=== PATIENT | female | born 1945 | race Caucasian/White ===

== ENCOUNTER → 2016-06-26 | Outpatient (CLI) | payer OTHER ==
[~2016-06-26] MED LIST: ASPI81TA28 PO; ATOR-22 PO; CARV6.252 PO; CHOL20007 PO; CIPR1TAB11 PO; CYNI1000 IM; DSY100 PO; FSM70 PO; IRBE-37 PO; MULT-506 PO; OLME40TA30 PO; OMEP40CA PO; OXYC-57 PO; PHEN-876 PO; REPA2TAB13 PO; SERT50TA PO; SIMV80TA2 PO; SITA50TA5 PO; TRAZ1TAB52 PO
--- NOTE | 2016-06-26 12:32 | MAMMOGRAPHY REPORT ---
BILATERAL DIGITAL SCREENING MAMMOGRAM WITH CAD: 06/26/2016 CLINICAL HISTORY: Routine screening. Patient has no complaints. TECHNIQUE: Current study was also evaluated with a Computer Aided Detection (CAD) system. Bilatera l CC and MLO views were obtained. COMPARISON: Comparison is made to exams dated: 06/26/2015 mammogram, 06/22/2014 mammogram, 06/21/2013 mammogram, 06/11/2011 mammogram, 06/08/2010 mammogram, and 06/16/2012 mammogram - [facility] enter. BREAST COMPOSITION: The tissue of both breasts is almost entirely fatty. FINDINGS: No suspicious masses, calcifications, or areas of architectural distortion are noted in e ither breast. There has been no significant interval change compared to prior exams. Bilateral ashleigh gn-appearing calcifications are not significantly changed. IMPRESSION: ACR BI-RADS CATEGORY 2: BENIGN There is no mammographic evidence of malignancy. A 1 year screening mammogram is recommended. The p atient will receive written notification of the results. Approximately 10% of breast cancers are not detected with mammography. A negative mammographic repor t should not delay biopsy if a clinically suggestive mass is present. Christine Morris M.D. /:06/26/2016 09:56:35 Digital Associate: Lin Adam, [facility] letter sent: Normal 1/2 BI-RADS Code: ACR BI-RADS Category 2: Benign
== END | disposition home or self-care (01) ==
LOC: C.MAMM 09:05
PROVIDERS: ATTEND Family Medicine
DX: Z12.31 Encounter for screening mammogram for malignant neoplasm of breast (principal)

== ENCOUNTER → 2016-11-11 | Outpatient (CLI) | payer OTHER ==
[~2016-11-11] MED LIST changes: -OXYC-57 PO
== END | disposition home or self-care (01) ==
LOC: C.MAMM 09:18
PROVIDERS: ATTEND Family Medicine
DX: M85.88 Other specified disorders of bone density and structure, other site (principal); M85.851 Other specified disorders of bone density and structure, right thigh; M85.852 Other specified disorders of bone density and structure, left thigh

== ENCOUNTER 2016-11-17 13:06 | Observation (INO) | payer OTHER ==
[~2016-11-17] VITALS: Ht 160 cm; Wt 66.6 kg
[~2016-11-17 13:06] MED LIST changes: -ATOR-22 PO; -CIPR1TAB11 PO; -CYNI1000 IM; -IRBE-37 PO; -TRAZ1TAB52 PO
[2016-11-17] MEDS ORDERED: IRBE-37 PO (13:47)
[2016-11-17] MEDS ORDERED: CIPR1TAB11 PO (13:47)
[2016-11-17] MEDS ORDERED: TRAZ1TAB52 PO (13:47)
[2016-11-17] MEDS ORDERED: ATOR-22 PO (13:47)
[2016-11-17 13:56] LABS: BASO % 0.2 %; BASO ABS # 0.02 K/uL (0-0.2); COMPLETE YES; EOS % 1.1 %; HEMATOCRIT 45.9 % (37-47); IG% 0.3 %; LYMPH % 25.8 %; LYMPH ABS # 2.45 K/uL (1.2-3.4); MEAN CELL VOLUME 95.4 fL (80-100); MEAN CORPUSCULAR HEMOGLOBIN 32.4 pg (25-34); MEAN PLATELET VOLUME 11.3 fL (7.4-10.4); MONO % 11.6 %; PLATELET COUNT 195 K/uL (130-400); RED BLOOD COUNT 4.81 M/uL (4.2-5.4)
--- NOTE | 2016-11-17 14:07 | DIAGNOSTIC IMAGING REPORT ---
HEAD CT NONCONTRAST CT DOSE: 638.56 mGycm HISTORY: Stroke symptoms. TECHNIQUE: Multiaxial CT images of the head were performed without the use of intravenous contrast. Automated exposure control was utilized for this study. A dose lowering technique was utilized adhering to the principles of ALARA. Comparison: Head CT 06/22/2011. Findings: The paranasal sinuses and mastoid air cells are clear. The calvarium and skull base are intact. There is no mass, hematoma, midline shift, acute infarct. White matter hypodensity is nonspecific but suggestive of microvascular ischemic change. The ventricles and sulci demonstrate mild age-related involutional changes. Old lacunar infarct within the left basal ganglia. Impression: No acute intracranial abnormality. Electronically signed by: Jonny Chilel M.D. 11/17/2016 2:06 PM Dictated Date/Time: 11/17/2016 2:04 PM
[2016-11-17 14:10] LABS: BLOOD UREA NITROGEN 11 mg/dl (7-18); BUN/CREATININE RATIO 13.3 (10-20); CALCIUM 10.1 mg/dl (8.5-10.1); CARBON DIOXIDE 28 mmol/L (21-32); CHLORIDE 105 mmol/L (98-107); CREATININE 0.85 mg/dl (0.60-1.20); GLUCOSE 154 mg/dl (70-99); POTASSIUM 3.7 mmol/L (3.5-5.1); SODIUM 140 mmol/L (136-145)
[2016-11-17 14:11] LABS: PARTIAL THROMBOPLASTIN RATIO 1.1; PROTHROMBIN TIME (PATIENT) 10.2 SECONDS (9.0-12.0)
[2016-11-17] MEDS: SODIUM CHLORIDE 0.9% 1000ML 1,000 ML IV SCH ×2 (14:13→17:57)
[2016-11-17 14:14] LABS: CKMB/CK RATIO 1.9 (0-3.0)
[2016-11-17] MEDS ORDERED: ASPIRIN 81 MG CHEW PO STA (14:40)
--- NOTE | 2016-11-17 14:46 | DIAGNOSTIC IMAGING REPORT ---
CHEST ONE VIEW PORTABLE HISTORY: Stroke symptoms. COMPARISON: Chest 12/10/2013. FINDINGS: The heart remains borderline enlarged. The lungs are clear. No pleural effusions. No pneumothorax. IMPRESSION: No significant change compared to the prior study. No acute process. Electronically signed by: Jonny Chilel M.D. 11/17/2016 2:44 PM Dictated Date/Time: 11/17/2016 2:43 PM
[2016-11-17] MEDS ORDERED: MAGNESIUM HYDROXIDE SUSP 30 ML UDC PO PRN (15:15)
[2016-11-17] MEDS ORDERED: ACETAMINOPHEN 325 MG TAB PO PRN (15:15)
[2016-11-17] MEDS ORDERED: ONDANSETRON INJ 2 MG/ML 2 ML VIAL IV PRN (15:15)
[2016-11-17] MEDS ORDERED: PHARMACIST DISCHARGE MED REC CONSULT PRN (15:15)
[2016-11-17] MEDS ORDERED: IV FLUIDS COMPLETED PRN (15:30)
[2016-11-17] MEDS ORDERED: LORAZEPAM 2 MG/ML 1 ML VIAL IV PRN (15:30)
--- NOTE | 2016-11-17 15:40 | History and Physical ---
History & Physical Date & Time of Service: Nov 17, 2016 at 15:16 Chief Complaint: Possible Slight Stroke Primary Care Physician: Isaiah Santillan M.D. History of Present Illness Source: patient 70 y/o F c/o R finger and cheek numbness yesterday. Pt states she was in her usual state of health yesterday. She mowed her lawn and came inside around 1p feeling fine. About 130p she was working on the computer and had sudden onset of R finger and cheek numbness. This last for a few minutes and then resolved spontaneously. Also at this time, she tried to say something but could not. Pt lives alone, so there was no one to witness if other sx were occurring. She denies facial droop since that time, but did not look in a mirror at the time. No issues with R LE. States she could use her hand without issue, but just had a n/t sensation. She has no prior hx of similar sx and no recurrence. She states she feels fine at present. Pt denies fever, SOB, chest pain, abd pain, n/v/c/d, LE pain or swelling. She is currently taking cipro for a UTI. She was given a 5 day course to be completed 11/19 HS. Pt takes aspirin 81mg daily and states she never misses dosing. She is taking this for CAD prevention. She has no hx of TIA, CVA, or CA that she is aware of. Past Medical/Surgical History Medical Problems: (1) Diabetes Status: Chronic (2) Hypercholesteremia Status: Chronic (3) Hypertension Status: Chronic Depression/anxiety Insomnia Family History Denies CVA or CA Social History Smoking Status: Former Smoker (quit many years ago) Alcohol Use: none Drug Use: none Housing status: lives alone Multi-Drug Resistant Organisms History of MDRO: No Allergies Coded Allergies: Meperidine (Verified Allergy, Unknown, NAUSEA, 11/17/16) Nitrofurantoin (Verified Allergy, Unknown, DIARRHEA, 11/17/16) Exenatide (Verified Adverse Reaction, Severe, pancreatitis, 11/17/16) Phenol (Verified Adverse Reaction, Severe, pancreatitis, 11/17/16) Home Medications Scheduled Alendronate Sodium (Alendronate Sodium), 1 TAB PO WK Aspirin (Aspirin Ec), 81 MG PO HS Atorvastatin (Lipitor), 20 MG PO QAM Cholecalciferol (Vitamin D3), 1 TAB PO QAM Ciprofloxacin Tab (Cipro), 250 MG PO BID Cyanocobalamin (Cyanocobalamin), 1,000 MCG IM DIRECTED Irbesartan (Avapro), 75 MG PO DAILY Multivitamin (Multivitamin), 1 TAB PO QAM Phenazopyridine HCl (Pyridium), 200 MG PO TID Repaglinide (Prandin), 2 MG PO AC Sertraline (Zoloft), 50 MG PO QAM Sitagliptin-Metformin Hcl (Janumet), 1 TAB PO BID Trazodone Hcl (Desyrel), 75 MG PO HS Review of Systems Pertinent positives and negatives reviewed in HPI--all others negative Physical Exam Vital Signs Date Time Temp Pulse Resp B/P (MAP) Pulse Ox O2 Delivery O2 Flow Rate FiO2 11/17/16 13:57 87 11/17/16 13:15 36.8 94 18 157/66 96 Room Air General Appearance: WD/WN, no apparent distress Head: normocephalic, atraumatic Eyes: normal inspection, EOMI ENT: normal ENT inspection Neck: supple Respiratory/Chest: normal breath sounds, no respiratory distress Cardiovascular: regular rate, rhythm, no edema Abdomen/GI: non tender, soft Extremities/Musculoskelatal: no calf tenderness, no pedal edema Neurologic/Psych: 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, alert, normal mood/affect, oriented x 3, + pertinent finding (respiratory care practitioner strength 5/5 b/l, = strength against resistence in LE b/l) Skin: normal color, warm/dry Diagnostics Laboratory Results Results Past 24 Hours Test 11/17/16 13:30 11/17/16 14:02 11/17/16 15:06 Range/Units White Blood Count 9.50 4.8-10.8 K/uL Red Blood Count 4.81 4.2-5.4 M/uL Hemoglobin 15.6 12.0-16.0 g/dL Hematocrit 45.9 37-47 % Mean Corpuscular Volume 95.4 80-100 fL Mean Corpuscular Hemoglobin 32.4 25-34 pg Mean Corpuscular Hemoglobin Concent 34.0 32-36 g/dl Platelet Count 195 130-400 K/uL Mean Platelet Volume 11.3 7.4-10.4 fL Neutrophils (%) (Auto) 61.0 % Lymphocytes (%) (Auto) 25.8 % Monocytes (%) (Auto) 11.6 % Eosinophils (%) (Auto) 1.1 % Basophils (%) (Auto) 0.2 % Neutrophils # (Auto) 5.80 1.4-6.5 K/uL Lymphocytes # (Auto) 2.45 1.2-3.4 K/uL Monocytes # (Auto) 1.10 0.11-0.59 K/uL Eosinophils # (Auto) 0.10 0-0.5 K/uL Basophils # (Auto) 0.02 0-0.2 K/uL RDW Standard Deviation 44.8 36.4-46.3 fL RDW Coefficient of Variation 12.8 11.5-14.5 % Immature Granulocyte % (Auto) 0.3 % Immature Granulocyte # (Auto) 0.03 0.00-0.02 K/uL Prothrombin Time 10.2 9.0-12.0 SECONDS Prothromb Time International Ratio 1.0 0.9-1.1 Activated Partial Thromboplast Time 28.3 21.0-31.0 SECONDS Partial Thromboplastin Ratio 1.1 Sodium Level 140 136-145 mmol/L Potassium Level 3.7 3.5-5.1 mmol/L Chloride Level 105 98-107 mmol/L Carbon Dioxide Level 28 21-32 mmol/L Anion Gap 7.0 3-11 mmol/L Blood Urea Nitrogen 11 7-18 mg/dl Creatinine 0.85 0.60-1.20 mg/dl Est Creatinine Clear Calc Drug Dose 54.2 ml/min Estimated GFR () 79.3 Estimated GFR (Non- 68.5 BUN/Creatinine Ratio 13.3 10-20 Random Glucose 154 70-99 mg/dl Calcium Level 10.1 8.5-10.1 mg/dl Total Creatine Kinase 48 26-192 U/L Creatine Kinase MB 0.9 0.5-3.6 ng/ml Creatine Kinase MB Ratio 1.9 0-3.0 Troponin I < 0.015 0-0.045 ng/ml Bedside Prothrombin Time INR 1.0 0.9-1.1 Bedside Glucose 138 70-90 mg/dl Diagnostic Radiology CT head shows OLD lacunar infarct and ?? microvascular ischemic changes CXR normal Normal EKG Impression Assessment and Plan 70 y/o F who was admitted for observation on 11/17 for stroke like sx R fingers/cheek n/t: Concern for CVA given pt with DM, HLD, and HTN CT head with old lacunar infarct and ? microvasc ischemia MRI, MRA pending ECHO pending CBC, PRP WNL Lyme, TSH, B12, folate pending Trop neg x1, serials pending On statin and 81mg aspirin at baseline HTN: stable, monitor on home meds DM: stable, monitor on home meds given likely short duration of admission Anxiety/depression: monitor on home meds Insomnia: continue trazodone Pt states was started to help her sleep after the of her a few years ago Advised she taper this to lowest dose and d/c if possible Recent UTI: continue course of cipro to end HS 11/19 Other: Full code. Pt is quite clear that she would not want prolonged mechanical life support or tube feedings. Sister is present and agrees. DM AHA diet Ambulation for DVT proph Level of Care Telemetry Resuscitation Status FULL RESUSCITATION VTE Prophylaxis VTE Risk Assessment Done? Y/N: Yes Risk Level: Low
[2016-11-17 16:01] VITALS: BP 136/65; PULSE 76; TEMP 36.8; O2SAT 96; Ht 160 cm; Wt 66.6 kg
[2016-11-17 16:12] LABS: LYME DISEASE AB IGG NEG (NEG); LYME DISEASE AB IGM NEG (NEG)
[2016-11-17 16:13] VITALS: O2SAT 96
--- NOTE | 2016-11-17 17:05 | DIAGNOSTIC IMAGING REPORT ---
MRA OF THE INTRACRANIAL CIRCULATION WITHOUT CONTRAST CLINICAL HISTORY: Stroke - Attention to [place] [facility] [place]. Right upper extremity and facial numbness. COMPARISON STUDY: Head CT performed earlier today. TECHNIQUE: Utilizing a 1.5 Eufemia magnet and 3-D [id number] technique, unenhanced MRA of the intracranial circulation was obtained. FINDINGS: The bilateral M1, M2, A1 and A2 segments are patent. There is no intracranial aneurysm. The posterior circulation is also intact. There is persistence of the left posterior cerebral artery. No abrupt vessel cut off is identified within the intracranial circulation. IMPRESSION: Unremarkable MRA of the intracranial circulation. Electronically signed by: Brayan Livingston M.D. 11/17/2016 5:04 PM Dictated Date/Time: 11/17/2016 4:59 PM
[2016-11-17] MEDS: REPAGLINIDE 1 MG TAB PO SCH (17:56)
--- NOTE | 2016-11-17 18:02 | DIAGNOSTIC IMAGING REPORT ---
MRI OF THE BRAIN WITHOUT AND WITH IV CONTRAST CLINICAL HISTORY: Possible stroke. Right upper extremity and facial numbness. COMPARISON STUDY: Head CT November 17, 2016. TECHNIQUE: Utilizing a 1.5 Eufemia magnet and dedicated coil, multiplanar, multiecho imaging of the brain was performed pre and postcontrast administration. IV administration of 6.4 mL of Gadavist contrast was uneventful. FINDINGS: There are no areas of restricted diffusion. No acute intracranial hemorrhage, midline shift or mass effect is present. There is mild atrophy and presumed small vessel disease. No intracranial mass or pathologic enhancement is present. Flow-voids for the major intracranial vessels are present. Calvarial signal is normal. Orbits are unremarkable. There is no fluid within the mastoid air cells. IMPRESSION: 1. No acute intracranial findings. 2. No intracranial mass or pathologic enhancement. 3. Mild atrophy and mild small vessel disease. Electronically signed by: Brayan Livingston M.D. 11/17/2016 6:00 PM Dictated Date/Time: 11/17/2016 5:54 PM
[2016-11-17 18:06] VITALS: BP 136/71; PULSE 83; TEMP 37; O2SAT 96
--- NOTE | 2016-11-17 18:06 | DIAGNOSTIC IMAGING REPORT ---
MRA OF THE NECK WITH AND WITHOUT CONTRAST CLINICAL HISTORY: Stroke COMPARISON STUDY: None. TECHNIQUE: Unenhanced and contrast-enhanced MRA of the neck was performed. Injection of 6.4 mL of Gadavist IV was uneventful. NASCET criteria were utilized to estimate the degree of carotid stenosis. FINDINGS: The bilateral common carotid, internal carotid and vertebral arteries are patent. There is no significant stenosis within these vessels. There is no evidence for dissection. The left vertebral artery is dominant and patent. There is slight irregularity within the proximal left internal carotid artery and distal left common carotid artery likely due to atherosclerotic plaque without significant narrowing. IMPRESSION: Unremarkable MRA of the neck. Electronically signed by: Brayan Livingston M.D. 11/17/2016 6:05 PM Dictated Date/Time: 11/17/2016 6:01 PM
[2016-11-17 19:27] VITALS: BP 126/73; PULSE 83; TEMP 36.7; O2SAT 95
[2016-11-17] MEDS: METFORMIN HCL 500 MG TAB PO SCH (19:34)
[2016-11-17] MEDS: SITAGLIPTIN 25 MG TAB PO SCH (19:35)
--- NOTE | 2016-11-17 20:05 | EMERGENCY ROOM VISIT NOTE ---
History Report prepared by Lauren: Joaquina Alvarez Under the Supervision of: Dr. Uday Fernandes D.O. First contact with patient: 13:21 Chief Complaint: STROKE SYMPTOMS Stated Complaint: POSSIBLE SLIGHT STROKE Nursing Triage Summary: triage note pt reports on sat afternoon pt came in from mowing lawn had tingeling in the right arm/fingers and cheek, pt reports lasted two minutes all symptoms have resolved History of Present Illness The patient is a 70 year old female who presents to the Emergency Room with complaints of an episode of right sided numbness yesterday around 1330. The patient had come back in after cutting the grass. She was sitting at her computer when the fingers in her right hand and right cheek began to feel numb. She also experienced some speech difficulties. She was trying to say something, but thinks that she might have said something else. These symptoms lasted for a couple minutes. No one was there to witness her symptoms as she lives alone. She has never experienced this before. She denies any vision changes, trouble swallowing, nausea, vomiting, diarrhea, headache, chest pain, SOB, weakness, or dysuria. She denies any further numbness. She is on a baby aspirin, but no blood thinners. Source of History: patient Onset: 1330 Position: other (right fingers, right cheek) Quality: numbness Timing: other (episodic) Associated Symptoms: No headache, No chest pain, No SOB, No nausea, No vomiting, No diarrhea, No weakness Note: Pt reports speech difficulties. Pt denies vision changes, trouble swallowing, dysuria. Review of Systems See HPI for pertinent positives & negatives. A total of 10 systems reviewed and were otherwise negative. Past Medical & Surgical Medical Problems: (1) Diabetes (2) Hypercholesteremia (3) Hypertension (4) Stroke-like symptoms Family History FH: heart disease Social History Smoking Status: Former Smoker Drug Use: none Marital Status: Housing Status: lives alone Occupation Status: retired Current/Historical Medications Scheduled Alendronate Sodium (Alendronate Sodium), 1 TAB PO WK Aspirin (Aspirin Ec), 81 MG PO HS Atorvastatin (Lipitor), 20 MG PO QAM Cholecalciferol (Vitamin D3), 1 TAB PO QAM Ciprofloxacin Tab (Cipro), 250 MG PO BID Irbesartan (Avapro), 75 MG PO DAILY Multivitamin (Multivitamin), 1 TAB PO QAM Phenazopyridine HCl (Pyridium), 200 MG PO TID Repaglinide (Prandin), 2 MG PO AC Sertraline (Zoloft), 50 MG PO QAM Sitagliptin-Metformin Hcl (Janumet), 1 TAB PO BID Trazodone Hcl (Desyrel), 75 MG PO HS Allergies Coded Allergies: Meperidine (Verified Allergy, Unknown, NAUSEA, 11/17/16) Nitrofurantoin (Verified Allergy, Unknown, DIARRHEA, 11/17/16) Exenatide (Verified Adverse Reaction, Severe, pancreatitis, 11/17/16) Phenol (Verified Adverse Reaction, Severe, pancreatitis, 11/17/16) Physical Exam Vital Signs Date Time Temp Pulse Resp B/P (MAP) Pulse Ox O2 Delivery O2 Flow Rate FiO2 11/17/16 14:30 76 20 136/65 96 Room Air 11/17/16 13:57 87 11/17/16 13:15 36.8 94 18 157/66 96 Room Air Physical Exam GENERAL: sitting up in bed, alert, well appearing, well nourished, no distress, non-toxic EYE EXAM: normal conjunctiva, PERRL and EOM's intact OROPHARYNX: no exudate, no erythema, lips, buccal mucosa, and tongue normal and mucous membranes are moist NECK: supple, no nuchal rigidity, no adenopathy, non-tender LUNGS: Clear to auscultation. Normal chest wall mechanics HEART: no murmurs, S1 normal and S2 normal ABDOMEN: abdomen soft, non-tender, normo-active bowel sounds, no masses, no rebound or guarding. BACK: Back is symmetrical on inspection and there is no deformity, no midline tenderness, no CVA tenderness. SKIN: no rashes and no bruising UPPER EXTREMITIES: upper extremities are grossly normal. LOWER EXTREMITIES: No pitting edema. NEURO EXAM: Normal sensorium, cranial nerves II-XII intact, normal speech, no weakness of arms, no weakness of legs. No drift. Finger to nose intact. Gross sensation intact. Medical Decision & Procedures ER Provider Diagnostic Interpretation: Xray results as stated below per my and the radiologist's interpretation: Radiology results as stated below per my review and the radiologist's interpretation: CHEST ONE VIEW PORTABLE HISTORY: Stroke symptoms. COMPARISON: Chest 12/10/2013. FINDINGS: The heart remains borderline enlarged. The lungs are clear. No pleural effusions. No pneumothorax. IMPRESSION: No significant change compared to the prior study. No acute process. Electronically signed by: Jonny Chilel M.D. 11/17/2016 2:44 PM Dictated Date/Time: 11/17/2016 2:[address] NON[address]AST CT DOSE: 638.56 mGycm HISTORY: Stroke symptoms. TECHNIQUE: Multiaxial CT images of the head were performed without the use of intravenous contrast. Automated exposure control was utilized for this study. A dose lowering technique was utilized adhering to the principles of ALARA. Comparison: Head CT 06/22/2011. Findings: The paranasal sinuses and mastoid air cells are clear. The calvarium and skull base are intact. There is no mass, hematoma, midline shift, acute infarct. White matter hypodensity is nonspecific but suggestive of microvascular ischemic change. The ventricles and sulci demonstrate mild age-related involutional changes. Old lacunar infarct within the left basal ganglia. Impression: No acute intracranial abnormality. Electronically signed by: Jonny Chilel M.D. 11/17/2016 2:06 PM Dictated Date/Time: 11/17/2016 2:04 PM Laboratory Results 11/17/16 13:30 Red Blood Count 4.81, Mean Corpuscular Volume 95.4, Mean Corpuscular Hemoglobin 32.4, Mean Corpuscular Hemoglobin Concent 34.0, Mean Platelet Volume 11.3, Neutrophils (%) (Auto) 61.0, Lymphocytes (%) (Auto) 25.8, Monocytes (%) (Auto) 11.6, Eosinophils (%) (Auto) 1.1, Basophils (%) (Auto) 0.2, Neutrophils # (Auto ) 5.80, Lymphocytes # (Auto) 2.45, Monocytes # (Auto) 1.10, Eosinophils # (Auto ) 0.10, Basophils # (Auto) 0.02 11/17/16 13:30 Test 11/17/16 13:30 11/17/16 14:02 White Blood Count 9.50 K/uL (4.8-10.8) Red Blood Count 4.81 M/uL (4.2-5.4) Hemoglobin 15.6 g/dL (12.0-16.0) Hematocrit 45.9 % (37-47) Mean Corpuscular Volume 95.4 fL (80-100) Mean Corpuscular Hemoglobin 32.4 pg (25-34) Mean Corpuscular Hemoglobin Concent 34.0 g/dl (32-36) Platelet Count 195 K/uL (130-400) Mean Platelet Volume 11.3 fL (7.4-10.4) Neutrophils (%) (Auto) 61.0 % Lymphocytes (%) (Auto) 25.8 % Monocytes (%) (Auto) 11.6 % Eosinophils (%) (Auto) 1.1 % Basophils (%) (Auto) 0.2 % Neutrophils # (Auto) 5.80 K/uL (1.4-6.5) Lymphocytes # (Auto) 2.45 K/uL (1.2-3.4) Monocytes # (Auto) 1.10 K/uL (0.11-0.59) Eosinophils # (Auto) 0.10 K/uL (0-0.5) Basophils # (Auto) 0.02 K/uL (0-0.2) RDW Standard Deviation 44.8 fL (36.4-46.3) RDW Coefficient of Variation 12.8 % (11.5-14.5) Immature Granulocyte % (Auto) 0.3 % Immature Granulocyte # (Auto) 0.03 K/uL (0.00-0.02) Prothrombin Time 10.2 SECONDS (9.0-12.0) Prothromb Time International Ratio 1.0 (0.9-1.1) Activated Partial Thromboplast Time 28.3 SECONDS (21.0-31.0) Partial Thromboplastin Ratio 1.1 Anion Gap 7.0 mmol/L (3-11) Est Creatinine Clear Calc Drug Dose 54.2 ml/min Estimated GFR () 79.3 Estimated GFR (Non- 68.5 BUN/Creatinine Ratio 13.3 (10-20) Calcium Level 10.1 mg/dl (8.5-10.1) Total Creatine Kinase 48 U/L (26-192) Creatine Kinase MB 0.9 ng/ml (0.5-3.6) Creatine Kinase MB Ratio 1.9 (0-3.0) Thyroid Stimulating Hormone (TSH) 1.520 uIu/ml (0.300-4.500) Lyme Disease IgG Antibody NEG (NEG) Lyme Disease IgM Antibody NEG (NEG) Bedside Prothrombin Time INR 1.0 (0.9-1.1) Bedside Glucose 138 mg/dl (70-90) Laboratory results per my review. Medications Administered Medications (Trade) Dose Ordered Sig/Stephany Route Start Time Stop Time Status Last Admin Dose Admin Sodium Chloride 1,000 ml @ 50 mls/hr Q20H IV 11/17/16 13:35 11/17/16 18:22 DC 11/17/16 17:57 50 MLS/HR Aspirin (Aspirin Chew) 81 mg NOW STAT PO 11/17/16 14:40 11/17/16 14:41 DC 11/17/16 15:50 81 MG ECG Indication: other (stroke symptoms) Rate (beats per minute): 84 Rhythm: sinus rhythm Findings: 1st degree AV block, Q waves (Inferior) Comparison ECG Date: 10-Dec-2013 Change: no significant change ED Course ED COURSE: Vital signs were reviewed and showed hypertension. The patients medical record was reviewed The above diagnostic studies were performed and reviewed. ED treatments and interventions as stated above. 1327: The patient was evaluated in room C11B. A complete history and physical examination was performed. 1335: NSS 1000 ml @ 50 mls/hr IV. 1436: I reviewed the patient's case with Dr. Martinez, [facility] hospitalist. She will evaluate the patient for further management. 1437: Upon reevaluation, the patient is resting comfortably.I discussed my findings with the patient and she understands and agrees with the treatment plan. Based on the patients age, coexisting illnesses, exam and lab findings the decision to treat as an inpatient was made. The patient remained stable while under my care. The patient will be evaluated for further management. 1440: Aspirin 81 mg PO. Medical Decision Differential Diagnosis includes but is not limited to ischemic Stroke, hemorrhagic stroke, bells palsy, mass, neoplasm, migraine headache, seizure, subarachnoid hemorrhage, TIA, and transient global amnesia. Patient is a 70-year-old female who presents the ER following having right upper extremity, facial numbness and weakness associated with trouble speaking yesterday. Her symptoms resolved and she has been asymptomatic. CBC along with BMP and troponin were unremarkable. CT head shows a left-sided basal ganglia infarct. Updated patient at bedside and patient was admitted for CVA. Medication Reconcilliation Current Medication List: was personally reviewed by me Blood Pressure Screening Patient's blood pressure: Elevated blood pressure Blood pressure disposition: Elevated BP felt to be situational Consults Time Called: 1433 Consulting Physician: Dr. Martinez, [facility] hospitalist Returned Call: [phone] I reviewed the patient's case with her. She will evaluate the patient for further management. Impression Primary Impression: CVA (cerebral vascular accident) Scribe Attestation The scribe's documentation has been prepared under my direction and personally reviewed by me in its entirety. I confirm that the note above accurately reflects all work, treatment, procedures, and medical decision making performed by me. Departure Information Dispostion Being Evaluated By Hospitalist Referrals Isaiah Santillan M.D. (PCP) Patient Instructions My [facility] Problem Qualifiers Primary Impression: CVA (cerebral vascular accident) CVA mechanism: unspecified Qualified Codes: I63.9 - Cerebral infarction, unspecified
[2016-11-17] MEDS: CIPROFLOXACIN 250 MG TAB PO SCH (20:52)
[2016-11-17] MEDS ORDERED: PHENAZOPYRIDINE HCL 200 MG TAB PO PRN (21:00)
[2016-11-17] MEDS ORDERED: TRAZODONE HCL 50 MG TAB PO SCH (21:00)
[2016-11-17] MEDS ORDERED: [UNRECOGNIZED DRUG - OTHER] PO SCH (21:00)
[2016-11-17 23:40] VITALS: BP 112/67; PULSE 81; TEMP 36.5; O2SAT 96
[2016-11-18 03:22] VITALS: BP 110/67; PULSE 86; TEMP 36.9; O2SAT 96
[2016-11-18 04:07] LABS: CHOLESTEROL 112 mg/dl (0-200); CHOLESTEROL/HDL RATIO 2.5; HDL CHOLESTEROL 45 mg/dl; LDL CHOLESTEROL CALCULATED 49 mg/dl; TRIGLYCERIDES 92 mg/dl (0-150); VERY LOW DENSITY LIPOPROT CALC 18 mg/dl
[2016-11-18 06:44] LABS: ESTIMATED AVERAGE GLUCOSE 157 mg/dl; HA1C FLAG Normal (Normal)
[2016-11-18 07:56] VITALS: BP 131/79; PULSE 68; TEMP 36.8; O2SAT 95
[2016-11-18] MEDS: CIPROFLOXACIN 250 MG TAB PO SCH (08:25)
[2016-11-18] MEDS: SITAGLIPTIN 25 MG TAB PO SCH (08:25)
[2016-11-18] MEDS: REPAGLINIDE 1 MG TAB PO SCH ×2 (08:26→10:59)
[2016-11-18] MEDS: METFORMIN HCL 500 MG TAB PO SCH (08:27)
[2016-11-18] MEDS ORDERED: SERTRALINE HCL 50 MG TAB PO SCH (09:00)
[2016-11-18] MEDS ORDERED: IRBESARTAN 150 MG TAB PO SCH (09:00)
[2016-11-18] MEDS ORDERED: ATORVASTATIN 20 MG TAB PO SCH (09:00)
[2016-11-18] MEDS ORDERED: CYANOCOBALAMIN 1000 MCG/ML VIAL IM SCH (09:00)
[2016-11-18] MEDS ORDERED: CHOLECALCIFEROL 1000 INTER.UNIT TAB PO SCH (09:00)
[2016-11-18] MEDS ORDERED: IRBESARTAN 75 MG TAB PO SCH (09:00)
[2016-11-18] MEDS ORDERED: MULTIVITAMIN TAB PO SCH (09:00)
[2016-11-18] MEDS ORDERED: CYNI1000 IM ×3 (10:24→10:48)
--- NOTE | 2016-11-18 10:34 | Discharge Instructions ---
Discharge Instructions Date of Service Nov 18, 2016. Admission Reason for Admission: Stroke-Like Symptoms Discharge Discharge Diagnosis / Problem: Parasthesias likely related to B12 deficiency Discharge Goals Goal(s): Decrease discomfort, Improve function, Increase independence Activity Recommendations Activity Limitations: resume your previous activity . Instructions / Follow-Up Instructions / Follow-Up Give yourself 1 B12 injection daily x4 days. You will then go to 1x per week x4 weeks. You should have your B12 levels checked in 5 weeks and follow up with your primary care for further recommendations. A goal B12 level is 800-900. Once you have finished with the weekly injections, you should start taking sublingual B complex, which you can find on the shelf at [facility]. It can take 2 months for symptoms related to B12 deficiency to resolve, so you may have return of mild numbness or tingling like you experienced the day prior to coming to the ED. As we discussed, there is a chance that this could be related to TIA or stroke, however this is less likely. If you have new symptoms such as inability to use your arms or legs, speech changes, facial droop, or confusion, or any symptoms that concern you for a stroke, you should be seen in the emergency department as soon as possible. You should follow-up with Dr. Santillan when you return from your trip. Risk Factors for Stroke: You can reduce your chances of stroke by working with your medical provider to adopt a healthy lifestyle. Some specific ways to lower your chance of stroke are: * If you are a smoker, now is the time to stop smoking cigarettes * If you are diabetic, improve the control of your blood sugars * Avoid excessive amounts of alcohol * Control high blood pressure * Lose weight if you are overweight * Be sure to lead an active lifestyle * Eat a healthy diet low in salt, cholesterol and fat You should know about other risk factors for stroke that you are unable to control. These include: * Age 55 years or older * Male gender * Certain racial groups: , or / * Family History of Stroke, Mini stroke or Heart Attack * Sickle Cell Disease Follow Up: It is important for you to keep your follow up appointments with your medical provider. Imaging during admission: CT head: Findings: The paranasal sinuses and mastoid air cells are clear. The calvarium and skull base are intact. There is no mass, hematoma, midline shift, acute infarct. White matter hypodensity is nonspecific but suggestive of microvascular ischemic change. The ventricles and sulci demonstrate mild age-related involutional changes. Old lacunar infarct within the left basal ganglia. Impression: No acute intracranial abnormality. MRA head/neck: FINDINGS: The bilateral common carotid, internal carotid and vertebral arteries are patent. There is no significant stenosis within these vessels. There is no evidence for dissection. The left vertebral artery is dominant and patent. There is slight irregularity within the proximal left internal carotid artery and distal left common carotid artery likely due to atherosclerotic plaque without significant narrowing. IMPRESSION: Unremarkable MRA of the neck. FINDINGS: The bilateral M1, M2, A1 and A2 segments are patent. There is no intracranial aneurysm. The posterior circulation is also intact. There is persistence of the left posterior cerebral artery. No abrupt vessel cut off is identified within the intracranial circulation. IMPRESSION: Unremarkable MRA of the intracranial circulation. MRI brain: FINDINGS: There are no areas of restricted diffusion. No acute intracranial hemorrhage, midline shift or mass effect is present. There is mild atrophy and presumed small vessel disease. No intracranial mass or pathologic enhancement is present. Flow-voids for the major intracranial vessels are present. Calvarial signal is normal. Orbits are unremarkable. There is no fluid within the mastoid air cells. IMPRESSION: 1. No acute intracranial findings. 2. No intracranial mass or pathologic enhancement. 3. Mild atrophy and mild small vessel disease. Current Hospital Diet Patient's current hospital diet: Diabetes Type 2 Diet, AHA Diet (Heart Healthy) Discharge Diet Recommended Diet: Diabetes Type 2 Diet Pending Studies Studies pending at discharge: no Laboratory Results Hemoglobin A1c Test 11/18/16 03:27 Range/Units Estimated Average Glucose 157 mg/dl Hemoglobin A1c 7.1 H 4.5-5.6 % Lipid Panel Test 11/18/16 03:27 Range/Units Triglycerides Level 92 0-150 mg/dl Cholesterol Level 112 0-200 mg/dl HDL Cholesterol 45 mg/dl Cholesterol/HDL Ratio 2.5 LDL Cholesterol, Calculated 49 mg/dl Medical Emergencies . Who to Call and When: Medical Emergencies: Call 911 immediately if you experience any of the following warning signs and symptoms of Stroke: * Sudden numbness or weakness of the face, arm or leg, especially on one side of the body * Sudden confusion, trouble speaking or understanding * Sudden trouble seeing in one or both eyes * Sudden trouble walking, dizziness, loss of balance or coordination * Sudden severe headache with no cause Do not delay calling 911 if you experience any warning signs or symptoms of a stroke. Delay in seeking medical attention may affect what treatments can be given to you. . Non-Emergent Contact Non-Emergency issues call your: Primary Care Provider . . "Provider Documentation" section prepared by Roxanne Martinez. . Stroke Core Measures Reason no t-PA for Stroke: Treatment not indicated Reason no antithrom by day 2: Treatment provided - N/A Reason no antithrom at D/C: Treatment provided - N/A Reason no statin at D/C: Treatment provided - N/A Reason no anticoag w/a fib: Treatment not indicated VTE Core Measure Inpt VTE Proph given/why not?: SCD's
--- NOTE | 2016-11-18 10:36 | Discharge Summary ---
Discharge Summary Date of Service Nov 18, 2016. Discharge Summary Admission Date: Nov 17, 2016 at 15:12 Discharge Date: Nov 18, 2016 Discharge Disposition: Home Principal Diagnosis: Parasthesias likely related to B12 deficiency Problems/Secondary Diagnoses: Recent UTI DM HTN HLD Depression/anxiety Insomnia Medication Reconciliation New Medications: Cyanocobalamin (Cyanocobalamin) 1,000 Mcg/Ml Inj 1000 MCG IM DIRECTED for 12 Days, #1 VIAL 1 Refill Give yourself 1 injection IM daily x4 days. Then 1x per week x4 weeks Continued Medications: Alendronate Sodium (Alendronate Sodium) 70 Mg Tab 1 TAB PO WK TAKES FRIDAYS AROUND 730 AM Aspirin (Aspirin Ec) 81 Mg Tab 81 MG PO HS Atorvastatin (Lipitor) 20 Mg Tab 20 MG PO QAM, TAB Cholecalciferol (Vitamin D3) 2,000 Unit Tab 1 TAB PO QAM, TAB Ciprofloxacin Tab (Cipro) 250 Mg Tab 250 MG PO BID STARTED 11/15 Irbesartan (Avapro) 150 Mg Tab 75 MG PO DAILY, TAB Multivitamin (Multivitamin) Tab 1 TAB PO QAM, TAB Phenazopyridine HCl (Pyridium) 200 Mg Tab 200 MG PO TID for Bladder Pain, TAB Repaglinide (Prandin) 2 Mg Tab 2 MG PO AC, TAB Sertraline (Zoloft) 50 Mg Tab 50 MG PO QAM, TAB Sitagliptin-Metformin Hcl (Janumet) 1 Tab Tab 1 TAB PO BID DOSE IS 50 MG/1000 MG Trazodone Hcl (Desyrel) 150 Mg Tab 75 MG PO HS Discharge Exam Pt is doing well. She has had no return of her R fingers or cheek n/t. She has felt like her usual self during her stay. No issues with PO intake. Pt denies fever, SOB, chest pain, abd pain, n/v/c/d, LE pain or swelling. ROS reviewed and otherwise neg. Physical Exam: General Appearance: WD/WN, no apparent distress Eyes: normal inspection, EOMI ENT: hearing grossly normal Neck: supple Respiratory/Chest: normal breath sounds, no respiratory distress Cardiovascular: regular rate, rhythm, no edema Abdomen / GI: non tender, soft Extremities: no calf tenderness, no pedal edema Neurologic/Psychiatric: alert, oriented x 3 Skin: normal color, warm/dry Hospital Course From H&P: 70 y/o F c/o R finger and cheek numbness yesterday. Pt states she was in her usual state of health yesterday. She mowed her lawn and came inside around 1p feeling fine. About 130p she was working on the computer and had sudden onset of R finger and cheek numbness. This last for a few minutes and then resolved spontaneously. Also at this time, she tried to say something but could not. Pt lives alone, so there was no one to witness if other sx were occurring. She denies facial droop since that time, but did not look in a mirror at the time. No issues with R LE. States she could use her hand without issue, but just had a n/t sensation. She has no prior hx of similar sx and no recurrence. She states she feels fine at present. Pt denies fever, SOB, chest pain, abd pain, n/v/c/d, LE pain or swelling. She is currently taking cipro for a UTI. She was given a 5 day course to be completed 11/19 HS. Pt takes aspirin 81mg daily and states she never misses dosing. She is taking this for CAD prevention. She has no hx of TIA, CVA, or MT that she is aware of. Hospital course: 70 y/o F who was admitted for observation on 11/17 for stroke like sx R fingers/cheek n/t: Sx likely related to moderate B12 deficiency Concern for CVA given pt with DM, HLD, and HTN however work-up has been negative CT head with old lacunar infarct and ? microvascular ischemia MRI and MRA neg for acute issues ECHO with EF >70% and neg for major structural issues CBC, PRP WNL Lyme, TSH, and folate WNL Trop neg x3 On statin and 81mg aspirin at baseline B12 deficiency: B12 level 305 with MCV borderline elevated at 95.4 Pt states that she does not eat as well since the of her and difficulty in cooking for one person Daily B12 injections x5, then weekly x4 Recheck B12 at that time and can likely go to PO, recs for sublingual B complex HTN: stable, monitor on home meds DM: stable, however A1c 7.1 Did discuss diet with pt Anxiety/depression: continue home meds Insomnia: continue trazodone Pt states was started to help her sleep after the of her a few years ago Advised she should taper this to lowest dose and d/c if possible Recent UTI: continue course of cipro to end HS 11/19 Total Time Spent: Greater than 30 minutes This includes examination of the patient, discharge planning, medication reconciliation, and communication with other providers. Discharge Instructions Please refer to the electronic Patient Visit Report (Discharge Instructions) for additional information. Follow-Up Dr. Santillan in 1-2 weeks Additional Copies To Isaiah Santillan M.D.
[2016-11-18 10:47] VITALS: BP 131/79; PULSE 68; TEMP 36.8; O2SAT 95
[2016-11-18 12:34] VITALS: BP 138/76; PULSE 71; TEMP 36.9; O2SAT 96
--- NOTE | 2016-11-18 17:15 | ECHOCARDIOGRAM REPORT ---
*NOTICE TO RECEIVING REPUBLICAN AGENCY This information is strictly Confidential and protected under [place] law. [place] law prohibits you from making any further disclosure of this information unless further disclosure is expressly permitted by the written consent of the person to whom it pertains or is authorized by law. A general authorization for the release of medical or other information is not sufficient for this purpose. Hospital accepts no responsibility if the information is made available to any other person, INCLUDING THE PATIENT. Interpretation Summary * Name: BANDAR HARDEN Study Date: 11/18/2016 07:13 AM BP: 110/67 mmHg * Patient Location: C.2T\S\S229\S\2 HR: 77 * : 1945 (M/d/yyyy) Gender: Female Height: 63 in * Age: 70 yrs Ethnicity: CA Weight: 142 lb * Ordering Physician: Roxanne Martinez * Referring Physician: Self, Referred * Performed By: Natan Borden RCS * * Reason For Study: Stroke like SX * BSA: 1.7 m2 * Hyperdynamic left ventricular systolic function. * Mild concentric left ventriclar hypertrophy. * Type 1 left ventricular diastolic dysfunction. * Trace pulmonic regurgitation. * No significant valvular abnormalities. * No cardiac source of emboli noted. Procedure Details * A saline contrast injection was performed to assess for cardiac shunting. * The injection was performed through an intravenous line in the left arm. * A total of 9 cc of agitated saline was given. Left Ventricle * The left ventricle is normal in size. * There is no thrombus. * There is mild concentric left ventricular hypertrophy. * The left ventricle is hyperdynamic. * Ejection Fraction = >70 %. * A full diastolic examination was done with clinical findings of Class I diastolic dysfunction. * No regional wall motion abnormalities noted. Right Ventricle * The right ventricle is normal in size and function. Atria * The left atrial size is normal. * Right atrial size is normal. * Injection of contrast documented no interatrial shunt. Mitral Valve * The mitral valve is normal. * There is no mitral valve stenosis. * Significant mitral regurgitation is absent. Tricuspid Valve * The tricuspid valve is normal. * There is no tricuspid stenosis. * Significant tricuspid regurgitation is absent. Aortic Valve * The aortic valve is trileaflet. * The aortic valve opens well. * Aortic stenosis is absent. * No aortic regurgitation is present. Pulmonic Valve * The pulmonic valve is not well visualized. * The pulmonary valve is inadequately visualized, but the Doppler data is adequate for interpretation. * There is no pulmonic valvular stenosis. * Trace pulmonic valvular regurgitation. Great Vessels * The aortic root is normal size. Pericardium/Pleural * There is no pericardial effusion. Great Vessels * Normal inferior vena cava diameter and respiratory variation suggests normal central venous pressure. MMode 2D Measurements and Calculations IVSd 1.2 cm LVIDd 3.4 cm LVIDs 1.6 cm LVPWd 1.2 cm IVS/LVPW 0.98 FS 54.3 % EDV(Teich) 47.2 ml ESV(Teich) 6.6 ml EF(Teich) 86.0 % EDV(cubed) 39.1 ml ESV(cubed) 3.7 ml EF(cubed) 90.5 % LV mass(C)d 132.9 grams LV mass(C)dI 79.5 grams/m\S\2 SV(Teich) 40.6 ml SI(Teich) 24.3 ml/m\S\2 SV(cubed) 35.4 ml SI(cubed) 21.2 ml/m\S\2 Ao root diam 3.1 cm Ao root area 7.4 cm\S\2 LVOT diam 2.0 cm LVOT area 3.0 cm\S\2 LVAd ap4 19.7 cm\S\2 LVLd ap4 7.5 cm EDV(MOD-sp4) 43.1 ml EDV(sp4-el) 43.9 ml LVAs ap4 8.1 cm\S\2 LVLs ap4 5.8 cm ESV(MOD-sp4) 10.2 ml ESV(sp4-el) 9.6 ml EF(MOD-sp4) 76.3 % EF(sp4-el) 78.2 % LVAd ap2 21.8 cm\S\2 LVLd ap2 7.1 cm EDV(MOD-sp2) 57.4 ml EDV(sp2-el) 56.8 ml LVAs ap2 8.4 cm\S\2 LVLs ap2 5.5 cm ESV(MOD-sp2) 11.6 ml ESV(sp2-el) 11.0 ml EF(MOD-sp2) 79.8 % EF(sp2-el) 80.6 % LVLd %diff -5.83 % EDV(MOD-bp) 51.3 ml LVLs %diff -6.31 % ESV(MOD-bp) 11.2 ml EF(MOD-bp) 78.2 % SV(MOD-sp4) 32.9 ml SI(MOD-sp4) 19.7 ml/m\S\2 SV(MOD-sp2) 45.8 ml SI(MOD-sp2) 27.4 ml/m\S\2 SV(MOD-bp) 40.1 ml SI(MOD-bp) 24.0 ml/m\S\2 SV(sp4-el) 34.3 ml SI(sp4-el) 20.5 ml/m\S\2 SV(sp2-el) 45.8 ml SI(sp2-el) 27.4 ml/m\S\2 Doppler Measurements and Calculations MV E max jonathan 101.2 cm/sec MV A max jonathan 116.5 cm/sec MV E/A 0.87 MV dec time 0.17 sec Ao V2 max 133.7 cm/sec Ao max PG 7.1 mmHg Ao max PG (full) 2.1 mmHg BAKARI(V,A) 2.5 cm\S\2 BAKARI(V,D) 2.5 cm\S\2 LV V1 max PG 5.0 mmHg LV V1 max 112.1 cm/sec
[2016-11-18] MEDS ORDERED: ASPIRIN 81 MG ECTAB PO SCH (21:00)
--- NOTE | 2016-11-27 10:40 | EDITING REQUIRED CODING QUERY ---
SUPPORTING DIAGNOSIS NEEDED Dr. Martinez, A supporting diagnosis is required for the test/procedure performed on this patient in order for us to be reimbursed by the patient's insurance. Please provide a supporting diagnosis for the following test/procedure listed below next to the test name along with your signature. *If there is no additional diagnosis for this patient that would support the following test/procedure please document that below next to the test/procedure. Test(s)/Procedure(s) that require a supporting diagnosis: Diagnosis is stroke like sx, facial and hand numbness, inability to speak. All outlined in my H&P. * ([id number]) MRA HEAD W/O CONTRAST DIAGNOSIS: * ([id number]) MRA NECK COMBO DIAGNOSIS: DATE OF SERVICE: 11/17/16 Provider Signature: Roxanne Martinez Date: __12/12/16 Thank you [facility] Information Management Once completed, please kindly fax back to [phone] For questions please call [phone]
== END 2016-11-18 13:40 | disposition home or self-care (01) ==
LOC: C.EDB 13:12 → C.2T 15:12 → ENRESERV 15:36
PROVIDERS: ADMIT Family Medicine; ATTEND Family Medicine
DX: R20.2 Paresthesia of skin (principal); I10 Essential (primary) hypertension; E53.8 Deficiency of other specified B group vitamins; N39.0 Urinary tract infection, site not specified; F32.9 Major depressive disorder, single episode, unspecified; E11.9 Type 2 diabetes mellitus without complications; F41.9 Anxiety disorder, unspecified; Z79.899 Other long term (current) drug therapy; G47.00 Insomnia, unspecified; E78.00 Pure hypercholesterolemia, unspecified; Z87.891 Personal history of nicotine dependence; R49.1 Aphonia

== ENCOUNTER 2017-01-03 14:45 | Emergency (ER) | payer OTHER ==
[~2017-01-03] VITALS: Ht 157.5 cm; Wt 67.2 kg
[~2017-01-03 14:45] MED LIST changes: +ATOR-22 PO; -CARV6.252 PO; +CIPR1TAB11 PO; +CYNI1000 IM; -DSY100 PO; +IRBE-37 PO; -OLME40TA30 PO; -OMEP40CA PO; -SIMV80TA2 PO; +TRAZ1TAB52 PO
[2017-01-03 14:48] VITALS: TEMP 36.7; Ht 157.5 cm; Wt 67.2 kg
[2017-01-03] MEDS ORDERED: PROCHLORPERAZINE 5 MG/ML 2 ML VIAL IV STA (14:58)
[2017-01-03] MEDS ORDERED: FENTANYL CITRATE INJ 50 MCG/1 ML 2 ML VIAL IV PRN (15:00)
[2017-01-03 15:27] LABS: BASO % 0.2 %; BASO ABS # 0.02 K/uL (0-0.2); COMPLETE YES; EOS % 0.3 %; HEMATOCRIT 39.7 % (37-47); IG% 0.1 %; LYMPH % 12.3 %; LYMPH ABS # 1.26 K/uL (1.2-3.4); MEAN CELL VOLUME 93.6 fL (80-100); MEAN CORPUSCULAR HEMOGLOBIN 31.1 pg (25-34); MEAN CORPUSCULAR HGB CONC 33.2 g/dl (32-36); MEAN PLATELET VOLUME 10.6 fL (7.4-10.4); MONO % 10.2 %; NEUT % 76.9 %; PLATELET COUNT 181 K/uL (130-400); RED BLOOD COUNT 4.24 M/uL (4.2-5.4); WHITE BLOOD COUNT 10.27 K/uL (4.8-10.8)
[2017-01-03 15:49] LABS: BUN/CREATININE RATIO 12.2 (10-20); CREATININE 0.85 mg/dl (0.60-1.20); POTASSIUM 3.6 mmol/L (3.5-5.1)
--- NOTE | 2017-01-03 15:52 | DIAGNOSTIC IMAGING REPORT ---
HEAD CT NONCONTRAST CT DOSE: 614.27 mGy.cm HISTORY: Left-sided headache. Evaluate for hemorrhage or pathology TECHNIQUE: Multiaxial CT images of the head were performed without the use of intravenous contrast. Automated exposure control was utilized for this study. A dose lowering technique was utilized adhering to the principles of ALARA. Comparison: Brain MRI 11/17/2016. Head CT 11/17/2016. Findings: The paranasal sinuses and mastoid air cells are clear. The calvarium and skull base are intact. The ventricles and sulci are within normal limits. There is no mass, hematoma, midline shift, or acute infarct. Impression: No acute intracranial abnormality. Electronically signed by: Jonny Chilel M.D. 01/03/2017 3:51 PM Dictated Date/Time: 01/03/2017 3:43 PM
[2017-01-03] MEDS ORDERED: KETOROLAC TROMETHAMINE 30 MG/ML VIAL IV STA (16:34)
--- NOTE | 2017-01-03 17:35 | EMERGENCY ROOM VISIT NOTE ---
History Report prepared by Lauren: Jakub Aldridge Under the Supervision of: Kendrick PandeyO. First contact with patient: 14:53 Chief Complaint: HEADACHE Stated Complaint: BAD HEAD PAIN ON L SIDE History of Present Illness The patient is a 71 year old female who presents to the Emergency Room with complaints of worsening left sided headache that is behind her left eye. She states that nothing makes the symptoms any better or worse. She states that the pain started after coming inside from working outside in her yard. The patient states that she has allergies and thinks that it is related. She states that her eyes get watery when she gets her allergies. The patient states that the pain came on gradually. She additionally states that she has been having some mild nausea. She denies any numbness, weakness, chest pain, and shortness of breath. The patient states that she took two ibuprofen earlier in the days. She states that she takes a baby aspirin daily. She has a history of diabetes, hypertension, and high cholesterol. Source of History: patient Onset: earlier this morning Position: head Quality: ache Timing: worsening Associated Symptoms: + nausea, No chest pain, No SOB, No weakness, No numbness Review of Systems See HPI for pertinent positives & negatives. A total of 10 systems reviewed and were otherwise negative. Past Medical & Surgical Medical Problems: (1) Diabetes (2) Hypercholesteremia (3) Hypertension (4) Stroke-like symptoms Family History FH: heart disease Social History Smoking Status: Never Smoker Drug Use: none Marital Status: Housing Status: lives alone Occupation Status: retired Current/Historical Medications Scheduled Alendronate Sodium (Alendronate Sodium), 1 TAB PO WK Aspirin (Aspirin Ec), 81 MG PO HS Atorvastatin (Lipitor), 20 MG PO QAM Cholecalciferol (Vitamin D3), 1 TAB PO QAM Irbesartan (Avapro), 75 MG PO DAILY Multivitamin (Multivitamin), 1 TAB PO QAM Phenazopyridine HCl (Pyridium), 200 MG PO TID Repaglinide (Prandin), 2 MG PO AC Sertraline (Zoloft), 50 MG PO QAM Sitagliptin-Metformin Hcl (Janumet), 1 TAB PO BID Trazodone Hcl (Desyrel), 75 MG PO HS Allergies Coded Allergies: Meperidine (Verified Allergy, Unknown, NAUSEA, 01/03/17) Nitrofurantoin (Verified Allergy, Unknown, DIARRHEA, 01/03/17) Exenatide (Verified Adverse Reaction, Severe, pancreatitis, 01/03/17) Phenol (Verified Adverse Reaction, Severe, pancreatitis, 01/03/17) Physical Exam Vital Signs Date Time Temp Pulse Resp B/P (MAP) Pulse Ox O2 Delivery O2 Flow Rate FiO2 01/03/17 16:40 90 16 166/74 98 Room Air 01/03/17 14:48 36.7 88 18 163/88 98 Room Air Physical Exam VITAL SIGNS: were reviewed as above. GENERAL:Non-toxic in appearance. SKIN: Warm dry and pink. HEAD: Normocephalic and atraumatic. OROPHARYNX: Is clear and moist NECK: Supple without lymphadenopathy or meningismus. LUNGS: clear. HEART: Regular rate and rhythm. ABDOMEN: Soft and nontender. EXTREMITIES: Warm and well perfused. NEUROLOGICALLY: Awake alert and oriented without focal deficit. Cranial nerves 2 -12 are intact. There is no pronator drift. Cerebellar testing is within normal limits. There is no nystagmus. There is no facial droop. Speech is clear. Vision is grossly normal. MUSCULOSKELETAL: Good muscle tone. No evidence of trauma. Medical Decision & Procedures ER Provider Diagnostic Interpretation: CT results as stated below per my review and radiologist interpretation: HEAD CT NONCONTRAST Findings: The paranasal sinuses and mastoid air cells are clear. The calvarium and skull base are intact. The ventricles and sulci are within normal limits. There is no mass, hematoma, midline shift, or acute infarct. Impression: No acute intracranial abnormality. Electronically signed by: Jonny Chilel M.D. 01/03/2017 3:51 PM Dictated Date/Time: 01/03/2017 3:43 PM Laboratory Results 01/03/17 15:10 Red Blood Count 4.24, Mean Corpuscular Volume 93.6, Mean Corpuscular Hemoglobin 31.1, Mean Corpuscular Hemoglobin Concent 33.2, Mean Platelet Volume 10.6, Neutrophils (%) (Auto) 76.9, Lymphocytes (%) (Auto) 12.3, Monocytes (%) (Auto) 10.2, Eosinophils (%) (Auto) 0.3, Basophils (%) (Auto) 0.2, Neutrophils # (Auto ) 7.90, Lymphocytes # (Auto) 1.26, Monocytes # (Auto) 1.05, Eosinophils # (Auto ) 0.03, Basophils # (Auto) 0.02 01/03/17 15:10 Test 01/03/17 15:10 White Blood Count 10.27 K/uL (4.8-10.8) Red Blood Count 4.24 M/uL (4.2-5.4) Hemoglobin 13.2 g/dL (12.0-16.0) Hematocrit 39.7 % (37-47) Mean Corpuscular Volume 93.6 fL (80-100) Mean Corpuscular Hemoglobin 31.1 pg (25-34) Mean Corpuscular Hemoglobin Concent 33.2 g/dl (32-36) Platelet Count 181 K/uL (130-400) Mean Platelet Volume 10.6 fL (7.4-10.4) Neutrophils (%) (Auto) 76.9 % Lymphocytes (%) (Auto) 12.3 % Monocytes (%) (Auto) 10.2 % Eosinophils (%) (Auto) 0.3 % Basophils (%) (Auto) 0.2 % Neutrophils # (Auto) 7.90 K/uL (1.4-6.5) Lymphocytes # (Auto) 1.26 K/uL (1.2-3.4) Monocytes # (Auto) 1.05 K/uL (0.11-0.59) Eosinophils # (Auto) 0.03 K/uL (0-0.5) Basophils # (Auto) 0.02 K/uL (0-0.2) RDW Standard Deviation 44.9 fL (36.4-46.3) RDW Coefficient of Variation 13.2 % (11.5-14.5) Immature Granulocyte % (Auto) 0.1 % Immature Granulocyte # (Auto) 0.01 K/uL (0.00-0.02) Erythrocyte Sedimentation Rate 20 mm/hr (0-21) Anion Gap 11.0 mmol/L (3-11) Est Creatinine Clear Calc Drug Dose 53.0 ml/min Estimated GFR () 78.8 Estimated GFR (Non- 68.0 BUN/Creatinine Ratio 12.2 (10-20) Calcium Level 10.0 mg/dl (8.5-10.1) Laboratory results as stated above per my review. Medications Administered Medications (Trade) Dose Ordered Sig/Stephany Route Start Time Stop Time Status Last Admin Dose Admin Prochlorperazine Edisylate (Compazine Inj) 10 mg NOW STAT IV 01/03/17 14:58 01/03/17 15:00 DC 01/03/17 15:23 10 MG Fentanyl Citrate (Fentanyl Inj) 50 mcg Q15M PRN IV 01/03/17 15:00 01/17/17 14:59 01/03/17 15:23 50 MCG Ketorolac Tromethamine (Toradol Inj) 30 mg NOW STAT IV 01/03/17 16:34 01/03/17 16:35 DC 01/03/17 16:47 30 MG ECG Indication: other (headache) Rate (beats per minute): 84 Rhythm: sinus rhythm Findings: 1st degree AV block, no acute ischemic change, no ectopy ED Course 1453: Previous medical records were reviewed. The patient was evaluated in room C7. A complete history and physical examination was performed. 1458: Compazine Inj 10mg IV 1500: Fentanyl Inj 50mcg IV Medical Decision Differential includes: Acute intracranial bleed, trauma, meningitis, encephalitis, increased intracranial pressure, mass or mass effect, facial or dental infection, temporal arteritis, CVA, TIA, acute hypertensive emergency, sinusitis, carbon monoxide exposure. This is a 71-year-old female who presents to the ED with a chief complaint of left-sided headache. The pain is behind the left eye and left side of the head. She states that it occurred around noon. It seemed to get progressively worse with a short period of time. She had a little nausea but denies any other symptoms. Denies any focal weakness. Denies any blindness or other significant symptoms. Initial blood pressure was 163/88. Physical exam and neuro exam was unremarkable. The patient has no focal deficits. CT scan of the head did not show acute process. CBC is normal, sedimentation rate is normal, PRP is normal, EKG shows a sinus rhythm at a rate of 84 with a first- degree AV block. The patient was reassessed. She was given IV fentanyl and IV Toradol as well as IV Compazine. On reassessment, she is feeling better. She is felt to be stable for discharge and outpatient follow-up. Of note, she had a complete stroke workup last month that was unremarkable. Medication Reconcilliation Current Medication List: was personally reviewed by me Blood Pressure Screening Patient's blood pressure: Elevated blood pressure Blood pressure disposition: Elevated BP felt to be situational Impression Primary Impression: Headache Scribe Attestation The scribe's documentation has been prepared under my direction and personally reviewed by me in its entirety. I confirm that the note above accurately reflects all work, treatment, procedures, and medical decision making performed by me. Departure Information Dispostion Home / Self-Care Referrals Isaiah Santillan M.D. (PCP) Patient Instructions My [facility] Additional Instructions Follow-up with your doctor for further care and evaluation in 1-2 days. Return to the emergency department for worsening or new symptoms or any concerns. You have been examined and treated today on an emergency basis only. This is not a substitute for, or an effort to provide, complete comprehensive medical care. It is impossible to recognize and treat all injuries or illnesses in a single emergency department visit. It is therefore important that you follow up closely with your doctor. Call as soon as possible for an appointment. Problem Qualifiers Primary Impression: Headache Headache chronicity pattern: acute headache
[2017-01-03 18:34] VITALS: BP 145/76; PULSE 88; O2SAT 98
== END 2017-01-03 18:35 | disposition home or self-care (01) ==
LOC: C.EDB 14:47 → C.EDC 18:35
DX: R51 Headache (principal); I44.0 Atrioventricular block, first degree; I10 Essential (primary) hypertension; E11.9 Type 2 diabetes mellitus without complications; E78.00 Pure hypercholesterolemia, unspecified; Z79.82 Long term (current) use of aspirin; Z79.84 Long term (current) use of oral hypoglycemic drugs; Z79.899 Other long term (current) drug therapy; Z82.49 Family history of ischemic heart disease and other diseases of the circulatory system; Z88.8 Allergy status to other drugs, medicaments and biological substances

== ENCOUNTER → 2017-05-30 | Outpatient (CLI) | payer OTHER ==
[~2017-05-30] MED LIST changes: -ASPI81TA28 PO; -CIPR1TAB11 PO; -CYNI1000 IM; -PHEN-876 PO; +PLV75 PO; +REPA2TAB12 PO; -REPA2TAB13 PO
== END | disposition home or self-care (01) ==
LOC: C.PATHSPEC 14:53
PROVIDERS: ATTEND Urology
DX: C67.9 Malignant neoplasm of bladder, unspecified (principal)

== ENCOUNTER → 2017-06-30 | Outpatient (CLI) | payer OTHER ==
--- NOTE | 2017-07-01 13:03 | MAMMOGRAPHY REPORT ---
BILATERAL DIGITAL SCREENING MAMMOGRAM TOMOSYNTHESIS WITH CAD: 06/30/2017 CLINICAL HISTORY: Routine screening. Patient has no complaints. TECHNIQUE: Breast tomosynthesis in addition to standard 2D mammography was performed. Current study was also evaluated with a Computer Aided Detection (CAD) system. COMPARISON: Comparison is made to exams dated: 06/26/2016 mammogram, 06/26/2015 mammogram, 06/22/2014 m ammogram, 06/21/2013 mammogram, and 06/16/2012 mammogram - [facility]. BREAST COMPOSITION: The tissue of both breasts is almost entirely fatty. FINDINGS: There are stable benign-appearing coarse heterogeneous calcifications in the breasts. Mild vascular calcification. No suspicious mass, architectural distortion or cluster of suspicious micro calcifications is seen. IMPRESSION: ACR BI-RADS CATEGORY 1: NEGATIVE There is no mammographic evidence of malignancy. A 1 year screening mammogram is recommended. The pa tient will receive written notification of the results. Approximately 10% of breast cancers are not detected with mammography. A negative mammographic report should not delay biopsy if a clinically suggestive mass is present. Lana Armstrong M.D. ay/:06/30/2017 16:19:20 Meeting Manager: Sera KLEIN)(Catie), [facility] letter sent: Normal 1/2 BI-RADS Code: ACR BI-RADS Category 1: Negative
== END | disposition home or self-care (01) ==
LOC: C.MAMM 09:15
PROVIDERS: ATTEND Family Medicine
DX: Z12.31 Encounter for screening mammogram for malignant neoplasm of breast (principal)

== ENCOUNTER → 2017-07-14 | Outpatient (CLI) | payer OTHER ==
--- NOTE | 2017-07-14 09:51 | DIAGNOSTIC IMAGING REPORT ---
L SHOULDER MIN 2 VIEWS ROUTINE HISTORY: 71 years-old Female L SHOULDER PAIN acute left shoulder pain COMPARISON: Chest radiograph 01/20/2017 TECHNIQUE: 3 views of the left shoulder FINDINGS: Bones appear mildly demineralized. Moderate acromioclavicular and mild to moderate glenohumeral degenerative changes. There is mild spurring about the greater tuberosity. No acute fracture or dislocation identified. Imaged lung levine appear clear. Suggestion of mild soft tissue swelling about the shoulder. IMPRESSION: 1. Mild soft tissue swelling without acute fracture or dislocation. 2. Degenerative changes as above. The above report was generated using voice recognition software. It may contain grammatical, syntax or spelling errors. Electronically signed by: Shaan Pandey M.D. 07/14/2017 9:49 AM Dictated Date/Time: 07/14/2017 9:48 AM
== END | disposition home or self-care (01) ==
LOC: C.RAD1850 09:26
PROVIDERS: ATTEND Family Medicine
DX: M19.012 Primary osteoarthritis, left shoulder (principal)

== ENCOUNTER 2023-12-19 07:00 | Observation (INO) ==
--- NOTE | 2023-11-12 12:55 | PAT Medication Instructions ---
Medication Instructions Date of Service November 12, 2023 Home Medications Medication Instructions Recorded estradiol 0.01% (0.1 mg/gram) 1 g vaginal .COMPLEX #42.5 grams 12/14/20 vaginal cream Walking Cane #1 ea 10/22/23 atorvastatin 40 mg tablet (Lipitor) 40 mg PO QAM cholecalciferol (vitamin D3) 50 mcg (2,000 unit) tablet 2,000 unit PO QAM clopidogrel 75 mg tablet 75 mg PO QAM metformin 500 mg tablet 500 mg PO UD multivitamin 1 tab PO QAM repaglinide 2 mg tablet (Prandin) 2 mg PO AC verapamil 120 mg tablet 120 mg PO QAM dulaglutide 0.75 mg/0.5 mL subcutaneous pen injector (Trulicity) 0.75 mg subcut WK insulin glargine 100 unit/mL (3 mL) subcutaneous pen (Lantus Solostar U-100 Insulin) 16 unit subcut QAM estradiol 0.01% (0.1 mg/gram) vaginal cream 1 g vaginal .COMPLEX bupropion HCl 200 mg tablet,12 hr sustained-release 200 mg PO QAM chlorthalidone 25 mg tablet 25 mg PO Q2D cyanocobalamin (vitamin B-12) 1,000 mcg capsule 1,000 mcg PO QAM irbesartan 75 mg tablet 75 mg PO QPM STOP taking 24 hours before surgery estradiol 0.01% (0.1 mg/gram) vaginal cream 1 g vaginal .COMPLEX STOP 7 days prior to surgery dulaglutide 0.75 mg/0.5 mL subcutaneous pen injector (Trulicity) 0.75 mg subcut WK DO NOT take the morning of surgery cholecalciferol (vitamin D3) 50 mcg (2,000 unit) tablet 2,000 unit PO QAM metformin 500 mg tablet 500 mg PO UD multivitamin 1 tab PO QAM repaglinide 2 mg tablet (Prandin) 2 mg PO AC chlorthalidone 25 mg tablet 25 mg PO Q2D cyanocobalamin (vitamin B-12) 1,000 mcg capsule 1,000 mcg PO QAM Take morning of surgery With a small sip of water, OTHERWISE NOTHING TO EAT OR DRINK AFTER MIDNIGHT: atorvastatin 40 mg tablet (Lipitor) 40 mg PO QAM verapamil 120 mg tablet 120 mg PO QAM bupropion HCl 200 mg tablet,12 hr sustained-release 200 mg PO QAM Take evening before surgery metformin 500 mg tablet 500 mg PO UD repaglinide 2 mg tablet (Prandin) 2 mg PO AC irbesartan 75 mg tablet 75 mg PO QPM Insulin Dependent Diabetic Patients * Test your blood sugar the morning of surgery * If Blood Sugar is GREATER THAN 150, take HALF of your regular dose of: insulin glargine 100 unit/mL (3 mL) subcutaneous pen (Lantus Solostar U-100 Insulin) > take 8 units * If Blood Sugar is LESS THAN 150, DO NOT TAKE ANY: insulin glargine 100 unit/mL (3 mL) subcutaneous pen (Lantus Solostar U-100 Insulin) Other Notes If you have any questions please call us at [phone] or [phone] or [phone] or [phone]
--- NOTE | 2023-11-20 11:12 | Anesthesiology Consultation ---
Date of Service November 20, 2023 Assessment & Plan (1) Encounter for pre-operative examination: - awaiting medical clearance, Dr. Leelee Spencer [facility]. Optimization form and testing to be faxed to PCP. - elevated A1c-to surgeon's determination, his office was made aware of this and that patient is pending medical clearance per discussion with Dr. Espinosa. Patient made aware and she denied questions or concerns. - check BSG am DOS. - dulaglutide instructions: Patient informed at PAT visit to stop 7 days prior to surgery-voiced understanding. Patient advised to check with prescriber to see if alternative diabetic management changes recommended while holding dulaglutide-if so, patient to call back to [facility] to update chart and discuss if any further preop medication instructions needed. - Outpatient joint assessment: Patient is currently scheduled for inpatient pathway. If re-evaluated and patient/surgeon requests outpatient pathway, patient is not advised candidate for outpatient joint program from anesthesia standpoint. Chart Review Chart Review: Pending: Refer to Additional Notes / Consult section and Patient seen in Pre Admission Testing Teaching & Discussion Pre-Anesthesia Teaching/Discussion Notes: Instructed NPO after midnight before surgery, except medications with 15 cc of water. Medication instructions provided according to the [facility] guidelines. History Surgery Operation Date: 12/19/23 10:00 Proposed Procedures p Right Total Knee Arthroplasty - Сергей Blair DO Height/Weight Height: 5 ft 3 in Weight: 63.8 kg Allergies Allergy/AdvReac Type Severity Reaction Status Date / Time exenatide AdvReac Severe pancreatiti Verified 11/11/23 13:19 s phenol AdvReac Severe pancreatiti Verified 11/11/23 13:19 s meperidine AdvReac Mild NAUSEA Verified 11/11/23 13:19 nitrofurantoin AdvReac Mild DIARRHEA Verified 11/11/23 13:19 Medications Home Medications Medication Instructions Recorded Confirmed Last Taken atorvastatin 40 mg tablet (Lipitor) 40 mg PO QAM 03/25/18 11/11/23 04/29/18 cholecalciferol (vitamin D3) 50 2,000 unit PO QAM 03/25/18 11/11/23 04/28/18 mcg (2,000 unit) tablet clopidogrel 75 mg tablet 75 mg PO QAM 03/25/18 11/11/23 04/28/18 metformin 500 mg tablet 500 mg PO UD 03/25/18 11/11/23 04/28/18 multivitamin 1 tab PO QAM 03/25/18 11/11/23 04/28/18 repaglinide 2 mg tablet (Prandin) 2 mg PO AC 03/25/18 11/11/23 04/28/18 verapamil 120 mg tablet 120 mg PO QAM 03/25/18 11/11/23 04/29/18 dulaglutide 0.75 mg/0.5 mL 0.75 mg subcut WK 12/12/20 11/11/23 Unknown subcutaneous pen injector (Trulicity) insulin glargine 100 unit/mL (3 16 unit subcut QAM 12/12/20 11/11/23 Unknown mL) subcutaneous pen (Lantus Solostar U-100 Insulin) estradiol 0.01% (0.1 mg/gram) 1 g vaginal .COMPLEX #42.5 grams 12/14/20 11/11/23 Unknown vaginal cream Walking Cane #1 ea 10/22/23 10/22/23 Unknown bupropion HCl 200 mg tablet,12 hr 200 mg PO QAM 11/11/23 11/11/23 Unknown sustained-release chlorthalidone 25 mg tablet 25 mg PO Q2D 11/11/23 11/11/23 Unknown cyanocobalamin (vitamin B-12) 1,000 mcg PO QAM 11/11/23 11/11/23 Unknown 1,000 mcg capsule irbesartan 75 mg tablet 75 mg PO QPM 11/11/23 11/11/23 Unknown Additional Notes: Patient was instructed and it was written on provided medication instructions to stop plavix 7 days before surgery and to check with prescribing provider if they are okay with this. She verbalized understanding and agreement, denied questions or concerns. Past Medical History Medical History (Updated 11/24/23 @ 09:25 by Flor Castellon PA-C) Bladder cancer 1998--sx Depression Diabetes mellitus, type 2 NIDDM Hx of pancreatitis (~2018) due to medication no current issue Hyperlipidemia Hypertension controlled, stable per pt Post-menopausal atrophic vaginitis Postmenopausal osteoporosis Rectocele monitoring Transient ischemic attack (TIA) was questionable in 12/2016---reason for plavix Tubular adenoma of colon (2021) polyp removed Urge and stress incontinence Patient denies h/o seizures, heart attack, heart failure, blood clots/DVTs or blood transfusions. Exercise / Class Metabolic Activity II 4-5 Yardwork/Stairs/Walk up hill (denies chest discomfort or shortness of breath with one flight of stairs) Past Family History Family History Father Family hx of colon cancer Colorectal cancer Mother Breast cancer Other Hypertension Denies family history of Ovarian cancer Uterine cancer Past Surgical History Surgical History (Updated 11/20/23 @ 11:24 by Flor Castellon PA-C) History of bladder surgery remove malignant bladder tumor History of cataract surgery right/left History of cholecystectomy History of colonoscopy History of dilatation and curettage History of surgical procedure on eye proper using laser left eye, tear of retina History of tonsillectomy and adenoidectomy History of tooth extraction wisdom teeth History of total abdominal hysterectomy and bilateral salpingo-oophorectomy Status post right foot surgery right great toe Past Anesthesia History No Hx of Anesthesia Complications and No Family Hx of Anesthesia Complications History of PONV No Hx of PONV and Hx of Motion Sickness Social History Smoking Status: Never smoker Do You Dip or Chew Tobacco: No Hx Alcohol Use: No Hx Substance Use: No substance use type: does not use Review of Systems Patient denies chest pain, shortness of breath, dyspnea on exertion, snoring, witnessed apneas, fever, chills, cough, wheezing, or palpitations. Physical Exam Vital Signs Vitals BP 119/68 P 100 (Pt notes she did have caffeine today and is somewhat stressed/anxious with appt/driving in traffic to hospital today) TEMP 98.8 SP02 98% on RA RESP 18 Physical Patient resting comfortably in chair in no acute distress, alert and oriented, responding appropriately throughout visit Full cervical extension range of motion without pain TMD 3.5 finger breadths Mallampati Score 2 Dentition: several crowns, denies chipped or loose teeth, implants or bridges Lungs: normal respiratory effort. Good air movement, clear throughout to a uscultation, no adventitious breath sounds Cardiac: regular rate and rhythm, no murmurs noted Carotid arteries: negative bruit bilat Lab Results Anesthesia Preop Results Results Anesthesia Widget: WBC 5.72 K/ul (4.8-10.8) 11/20/23 Hgb 12.5 g/dl (12.0-16.0) 11/20/23 Hct 36.1 % (37.0-47.0) L 11/20/23 Plt 150 K/uL (130-400) 11/20/23 Na 139 mmol/L (136-145) 11/20/23 K 3.7 mmol/L (3.5-5.1) 11/20/23 Cl 106 mmol/L (98-107) 11/20/23 CO2 25 mmol/L (21-32) 11/20/23 BUN 14 mg/dl (6-23) 11/20/23 Creat 0.71 mg/dl (0.6-1.2) 11/20/23 Glucose Level 177 mg/dl (70-99(Fasting)) H 11/20/23 PT 10.3 Seconds (9.0-12.0) 11/20/23 PTT 26 Seconds (21-31) 11/20/23 INR 0.9 (0.9-1.1) 11/20/23 HA1c 7.8 % (4.5-5.6) H 11/20/23 Blood Type A Positive 11/20/23 Antibody Screen NEGATIVE 11/20/23 Testing Electrocardiogram Date: 11/20/23 NSR, rate 95 bpm Cannot rule out anterior infarct cited on or before 12/10/2013 Chest X-Ray Date: 11/20/23 No acute cardiopulmonary findings.
--- NOTE | 2023-12-18 10:11 | History & Physical Report ---
Date of Service December 18, 2023 Assessment & Plan (1) Osteoarthritis of right knee: We will proceed with a right total knee arthroplasty. Postoperatively she will be started on aspirin and Plavix for DVT prophylaxis and kept overnight in the hospital for postop medical management. She plans to use [facility] for discharge. History of Present Illness Chief Complaint: Osteoarthritis of the right knee. Primary Care Provider: Leelee Mcghee is a pleasant 77-year-old female who has been dealing with severe right knee pain since June. For the past 3 months, she has been almost unable to ambulate on her knee. She is using a crutch. She saw one of the providers in our office. She has had x-rays of her knee with minimal relief. She has an MRI, which shows advanced medial compartmental arthritis. After failing conservative treatment, she has elected to proceed with a right total knee arthroplasty. Allergies Allergy/AdvReac Type Severity Reaction Status Date / Time exenatide AdvReac Severe pancreatiti Verified 11/11/23 13:19 s phenol AdvReac Severe pancreatiti Verified 11/11/23 13:19 s meperidine AdvReac Mild NAUSEA Verified 11/11/23 13:19 nitrofurantoin AdvReac Mild DIARRHEA Verified 11/11/23 13:19 Home Medications Medication Instructions Recorded Confirmed Type atorvastatin 40 mg tablet (Lipitor) 40 mg PO QAM 03/25/18 11/11/23 History cholecalciferol (vitamin D3) 50 2,000 unit PO QAM 03/25/18 11/11/23 History mcg (2,000 unit) tablet clopidogrel 75 mg tablet 75 mg PO QAM 03/25/18 11/11/23 History metformin 500 mg tablet 500 mg PO UD 03/25/18 11/11/23 History multivitamin 1 tab PO QAM 03/25/18 11/11/23 History repaglinide 2 mg tablet (Prandin) 2 mg PO AC 03/25/18 11/11/23 History verapamil 120 mg tablet 120 mg PO QAM 03/25/18 11/11/23 History dulaglutide 0.75 mg/0.5 mL 0.75 mg subcut WK 12/12/20 11/11/23 History subcutaneous pen injector (Trulicity) insulin glargine 100 unit/mL (3 16 unit subcut QAM 12/12/20 11/11/23 History mL) subcutaneous pen (Lantus Solostar U-100 Insulin) estradiol 0.01% (0.1 mg/gram) 1 g vaginal .COMPLEX #42.5 grams 12/14/20 11/11/23 Rx vaginal cream Walking Cane #1 ea 10/22/23 10/22/23 Rx bupropion HCl 200 mg tablet,12 hr 200 mg PO QAM 11/11/23 11/11/23 History sustained-release chlorthalidone 25 mg tablet 25 mg PO Q2D 11/11/23 11/11/23 History cyanocobalamin (vitamin B-12) 1,000 mcg PO QAM 11/11/23 11/11/23 History 1,000 mcg capsule irbesartan 75 mg tablet 75 mg PO QPM 11/11/23 11/11/23 History Past Med/Surg History Problem List Osteoarthritis of right knee Midline cystocele History of bladder cancer Encounter for pre-operative examination TIA (transient ischemic attack) 01/20/17 Stroke-like symptoms 11/17/16 Chest pain (Acute) 12/10/13 Atypical chest pain (Acute 12/10/13) 12/10/13-patient states was due to stress in setting of her mother's severe illness. Hypercholesteremia (Chronic) Diabetes (Chronic) Hypertension (Chronic) Medical History Hx of pancreatitis (~2018) due to medication no current issue Post-menopausal atrophic vaginitis Postmenopausal osteoporosis Rectocele monitoring Tubular adenoma of colon (2021) polyp removed Urge and stress incontinence Diabetes mellitus, type 2 NIDDM Bladder cancer 1998--sx Depression Transient ischemic attack (TIA) was questionable in 12/2016---reason for plavix Hypertension controlled, stable per pt Hyperlipidemia Surgical History History of cataract surgery right/left Status post right foot surgery right great toe History of dilatation and curettage History of total abdominal hysterectomy and bilateral salpingo-oophorectomy History of colonoscopy History of cholecystectomy History of bladder surgery remove malignant bladder tumor History of tooth extraction wisdom teeth History of tonsillectomy and adenoidectomy History of surgical procedure on eye proper using laser left eye, tear of retina Family History Father Family hx of colon cancer Colorectal cancer Mother Breast cancer Other Hypertension Denies family history of Ovarian cancer Uterine cancer Social History Smoking Status: Never smoker Second Hand Exposure: No; Do You Dip or Chew Tobacco: No; Tobacco Cessation Education Requested by Patient: No Hx Alcohol Use: No Hx Substance Use: No Preferred Language: [place] Communication Ability: Effective Eng[employer]ver [employer] Required: No Beliefs That Will Affect Care: None marital status: / Current Living Situation: Alone current occupational status: retired Other Information That Helps Us Care for You: No Feels Safe at Home: Yes Safety Concerns: Feels Safe At This Time Assistive Devices: Crutches and Glasses Review of Systems All systems reviewed & are unremarkable except as noted in HPI & below. Physical Exam On physical examination of the right knee, she has slight varus deformity. She has tenderness palpation of the distal medial femoral condyle and over the medial joint line.. Constitutional WD/WN, vitals as above Eyes PERRL, conjunctivae normal, anicteric sclerae ENMT external ear and nose normal, oropharynx normal Neck trachea midline, no thyromegaly Respiratory normal respiratory effort Cardiovascular RRR, no murmur, no edema Gastrointestinal (Abdomen) normal bowel sounds, soft, nontender, no hepatosplenomegaly Psychiatric A+Ox3, euthymic affect Results & Data Results & Data Diagnostic Findings X-rays of the right knee show advanced medial compartmental arthritis with joint space narrowing osteophyte formation.. . PG Care Time/CCT Total # of Minutes Spent Total Time Spent with Patient: Total time spent is greater than 50% in coordination of care (as documented) at patient's floor/unit and/or counseling patient: Coding Level of Care Code None Diagnoses Osteoarthritis of right knee M17.11
[~2023-12-19 07:00] MED LIST changes: -ATOR-22 PO; -CHOL20007 PO; -FSM70 PO; -IRBE-37 PO; -MULT-506 PO; -PLV75 PO; -REPA2TAB12 PO; +ROPIVACAINE 0.5% 5 MG/ML 30 ML VIAL ONE; -SERT50TA PO; -SITA50TA5 PO; -TRAZ1TAB52 PO
--- OUTSIDE RECORDS SUMMARY | 2023-12-19 07:10 | External Medical Summary | Continuity of Care Document ---
Author Name Unknown Organization [facility] [address] [facility] [address] [place] [address] [id number] Care Team Providers Care Styrene Dehydration Reactor Operator Name Role Phone Leelee Spencer Primary Care Physician [phone] [facility] [id number] Date(s): 12/09/23 - 12/09/23 [facility] [address] [facility] [address] [facility] [address] [facility], [facility] [address] [place] [address] [phone] Encounter Diagnosis Body mass index [BMI] 24.0-24.9, adult(Discharge Diagnosis) - 12/09/23 Encounter for pre-operative examination(Discharge Diagnosis) - 12/09/23 Discharge Disposition: Home or Self Care Attending Physician: SHAILA Spencer Kimberly A Allergies, Adverse Reactions, Alerts Substance Criticality Severity Reaction Reaction Severity Status Macrobid severe diarrhea Acti ve pioglitazone pt. has previou s hx of bladder cancere Active SARS-CoV-2 (COVID-19) mRNA-1273 vaccine Unable to assess criticality Moderate Syncope Acute vomiting Active Sertraline Hydrochloride jaw clenching Active Byetta Prefilled Pen 1 pancreatitis Active metFORMIN lactic acidosis on doses above 1000 mg daily Active empagliflozin 2 UTI Acti ve 1GLP-1 inhibitor 2SGLT2 inhibitor Assessment and Plan Extracted from: Title:Preoperative evaluation Author:RE Spencer Kimberly A Date:12/09/23 1.Encounter for pre-operat latonia examination Deepak seen for teresa-operative risk stratification. They report no cardiac symptoms at rest or on exertion. They have no history of ischemic heart disease, CHF, CVD, EtOH/drug abuse, personal or family history of coagulopathy, or CKD. 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 Sheis on insulin therapy with Lantusas well at [facility]. Her A1c is withingoal at 7.8%. They report no history of undergoing a stress test, cardiac catheterization, or coronary revascularization. They report being able to [id number] of activity. _This patient's cardiac risk factors include DM2, insulin dependent and daily PlavixAccording to the RCRI, this number of risk factors stratifies the patient to ClassI, whichcarries with it a3.9%risk of major adverse cardiac event, such as MO, cardiacarrest, or . In this case, however, the RCRI likelyover-estimatesthe patient's true cardiac risk given their history of_ and due to the fact that this surgery is considered amoderaterisk. These risks, along with the risk of teresa-operative stroke, were discussed with the patient, in light of the benefits of possible surgery._ She wishes to proceed with the operation. This assessment was conveyed to the requesting physician/surgery team. She is medically optimized for the scheduled (R) TKA on 12/19/23 Immunizations Given and Recorded Vaccine Date Status Refusal Reason SARS-CoV-2 (COVID-19) mRNA-vacc - [id number] 02/19/23 Recorded influenza virus vaccine, inactivated 01/30/23 Tony rded influenza virus vaccine, inactivated 01/25/22 Give n influenza virus vaccine, inactivated 12/15/20 Give n influenza virus vaccine, inactivated 1 01/17/20 Re corded influenza virus vaccine, inactivated 12/18/18 Tony rded influenza virus vaccine, inactivated 01/21/18 Give n influenza virus vaccine, inactivated 01/21/17 Tony rded influenza virus vaccine, inactivated 12/27/15 Give n influenza virus vaccine, inactivated 01/19/15 Tony rded influenza virus vaccine, inactivated 12/10/13 Give n influenza virus vaccine, inactivated 12/24/12 Give n SARS-CoV-2 mRNA (Pfizer 12+) bivalent 02/04/22 Rec orded SARS-CoV-2 mRNA ([id number]-din) 2 01/03/21 Recorded SARS-CoV-2 (COVID-19) mRNA BNT-162b2 vax 3 06/05/20 Recorded SARS-CoV-2 (COVID-19) mRNA BNT-162b2 vax 4 05/15/20 Recorded pneumococcal 23-valent vaccine 10/26/20 Given pneumococcal 23-valent vaccine 08/06/06 Recorded pneumococcal 23-valent vaccine 01/20/02 Recorded zoster vaccine, inactivated 10/04/19 Recorded zoster vaccine, inactivated 10/03/18 Recorded tetanus toxoids-diphtheria, Td (Adult) 11/08/16 Re corded hepatitis B adult vaccine 05/26/14 Given hepatitis B adult vaccine 11/04/13 Given hepatitis B adult vaccine 09/01/13 Given pneumococcal 13-valent vaccine 5 05/26/14 Given influenza virus vaccine, H1N1 01/01/12 Recorded zoster vaccine live 10/16/11 Recorded tetanus/diphtheria/pertuss, acel (Tdap) 08/06/06 R ecorded 1Result Comment: at [facility] 2Result Comment: felt achey, trouble sleeping, loss of appetitte, weakness, aches 2 days 3Result Comment: at [facility] 4Result Comment: at [facility] 5Early/Late Reason: Patient Not Available/Off Unit Medications atorvastatin 40 mg oral tablet Start: 02/26/23 11:39:00 AM EST, 1 tab, PO, Daily, Disp# 90 tab, Refills: 3, Pharmacy: [facility] Start Date: 02/26/23 Status: Ordered BD PEN LAST UF MINI 5MM 100'S 31G3/16 Start: 03/04/23 2:45:00 PM EST, BD PEN LAST UF MINI 5MM 100'S 31G3/16, See Instructions, Disp# 100 each, Refills: 3, USE ONCE DAILY WITH LANTUS SOLOSTAR, [facility] Start Date: 03/04/23 Status: Ordered buPROPion 200 mg/12 hours (SR) oral tablet, extended release Start: 08/07/23 9:34:00 PM EDT, 1 tab, PO, bid, Disp# 180 tab, Refills: 4, second dose at 3 PM, Note to Pharmacy: discontinue the 150 mg dose, Pharmacy: [facility] Start Date: 08/07/23 Stop Date: 10/30/24 Status: Ordered chlorthalidone 25 mg oral tablet Start: 05/20/23 11:21:00 AM EST, 1 tab, PO, q48h, Disp# 45 tab, Refills: 3, TAKE EVERY ODD DAY., Pharmacy: [facility] Start Date: 05/20/23 Status: Ordered clopidogrel 75 mg oral tablet Start: 02/26/23 11:39:00 AM EST, 1 tab, PO, Daily, Disp# 90 tab, Refills: 3, Pharmacy: [facility] Start Date: 02/26/23 Status: Ordered escitalopram 20 mg oral tablet Start: 09/22/23 5:47:00 PM EDT, 1 tab, PO, Daily, Disp# 90 tab, Refills: 3, Pharmacy: [facility] Start Date: 09/22/23 Status: Ordered famotidine 20 mg oral tablet Start: 09/16/22 1:59:00 PM EDT, See Instructions, Disp# 180 tab, Refills: 3, TAKE 1 TABLET TWICE A DAY, Pharmacy: [facility] Start Date: 09/16/22 Status: Ordered FreeStyle (28G) Lancets Start: 12/13/22 12:58:00 PM EDT, See Instructions, Disp# 200 lancet, Refills: 4, Use twice daily as needed to check blood sugar. Dx E11.65, Pharmacy: [facility] Start Date: 12/13/22 Status: Ordered Freestyle Lancets Start: 12/09/23 11:39:00 AM EDT, Freestyle Lancets, eRx Product Type: Supply, See Instructions, Disp#200 each, Refills: 1, Please check BS twice daily (on insulin therapy), Note to Pharmacy: Dx: e11.65; E11.40, [facility] Start Date: 12/09/23 Status: Ordered FREESTYLE LITE STRIPS 50'S Start: 11/14/23 4:55:00 PM EDT, FREESTYLE LITE STRIPS 50'S, See Instructions, Disp# 200 strip, Refills: 3, USE TWICE A DAY NEEDED, [facility] Start Date: 11/14/23 Status: Ordered FreeStyle Lite Test Strips 100 ct Start: 10/26/18 8:40:38 AM EDT, See Instructions, Disp# 200 each, Refills: 10, USE TWICE A DAY NEEDED, Pharmacy: [facility] Start Date: 10/26/18 Status: Ordered hydrOXYzine hydrochloride 10 mg oral tablet Start: 09/17/23 4:20:00 PM EDT, 1 TO 2 TABLETS, PO, tid, Disp# 180 tab, Refills: 11, PRN: NEEDED FOR ANXIETY, [facility]acy: [facility] Start Date: 09/17/23 Status: Ordered irbesartan 75 mg oral tablet Start: 06/17/23 11:17:00 PM EDT, 1 tab, PO, qPM, Disp# 90 tab, Refills: 3, [facility]acy[facility] Start Date: 06/17/23 Status: Ordered Lantus Solostar Pen 100 units/mL subcutaneous solution Start: 05/26/23 1:12:00 PM EST, 14 unit =, subQ, Daily, Disp# 15 mL, Refills: 3, Pharmacy: [facility] Start Date: 05/26/23 Status: Ordered MetFORMIN (Eqv-Glucophage XR) 500 mg oral tablet, extended release Start: 07/28/23 11:47:00 AM EDT, See Instructions, Disp# 270 tab, Refills: 3, TAKE 1 TABLET EVERY MORNING AND 2 TABLETS EVERY EVENING, Pharmacy: [facility] Start Date: 07/28/23 Status: Ordered Multiple Vitamins oral tablet Start: 03/13/10 9:19:00 AM EST, 1 tab, PO, Daily Start Date: 03/13/10 Status: Ordered repaglinide 2 mg oral tablet Start: 03/18/23 10:20:00 PM EST, See Instructions, Disp# 720 tab, Refills: 1, TAKE 2 TABLETS 30 MINUTES BEFORE MEALS FOUR TIMES A DAY, Pharmacy: [facility] Start Date: 03/18/23 Status: Ordered Trulicity Pen 0.75 mg/0.5 mL subcutaneous solution Start: 10/07/23 10:49:00 AM EDT, 0.75 mg =, subQ, q7days, Disp# 6 mL, Refills: 5, Pharmacy: [facility] Start Date: 10/07/23 Status: Ordered Vitamin B12 1000 mcg oral tablet Start: 12/05/16 9:47:00 AM EDT, See Instructions, 1 tab PO on Fri., Fri., Friday Start Date: 12/05/16 Status: Ordered Vitamin D3 2000 intl units oral capsule Start: 03/20/11 9:27:00 AM EST, 1 cap, PO, Daily, cap Start Date: 03/20/11 Status: Ordered Mental Status 9/3/24 Barriers to Learning one year None evide nt Mandatory Health Literacy Documentation Yes Health Literacy Communication Barriers N ever Primary Language Montenegrin Problem List Condition Confirmation Course Effective Dates Status Health Status Informant ANXIETY DISORDER Confirmed Active Carotid artery plaque 1 Confirmed Active Constipation Confirmed Active Other specified diabetes mellitus with mild nonproliferative diabetic retinopathy without macular edema, bilateral Confirmed Active Abnormal EKG Confirmed Active First degree AV block Confirmed Active Chronic GERD Confirmed Active History of bladder cancer Confirmed Active History of colon polyps 2 Confirmed 09/10/10 Active HISTORY OF TOBACCO USE 3 Confirmed Active HTN (hypertension) Confirmed Active LEIOMYOMA OF UTERUS, UNSPECIFIED Confirmed Active LIPOPROTEIN DEFICIENCIES Confirmed Active Drusen (degenerative) of macula, left eye Confirmed Active Nevus of choroid of left eye Confirmed Active Age-related nuclear cataract, bilateral Confirmed Active Osteoporosis Confirmed Active PERSONAL HISTORY OF COLONIC POLYPS Confirmed 09/10/10 Active 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 PURE HYPERCHOLESTEROLEMIA Confirmed Active Right thyroid nodule Confirmed Active DIABETES WITH NEUROLOGICAL MANIFESTATIONS Confirmed Active Presence of pessary Confirmed Active Vitreous floaters of right eye Confirmed Active 1left 2tubular adenoma 3age - Diagnosis Diagnosis Type Effective Dates Health Status Clinical Service Informant Body mass index [BMI] 24.0-24.9, adult Discharge Diagnosis 12/09/23 Non-Specified Encounter for pre-operative examination Discharge Diagnosis 12/09/23 Non-Specified Procedures Procedure Date Related Diagnosis Body Site Status Diabetic retinal eye exam 1 12/19/21 Completed Cystoscopy 2 06/12/21 Completed Diabetic retinal eye exam 3 12/07/20 Completed Colonoscopy 4, 5 11/09/20 Complete d Mammogram 6 09/20/20 Completed Chest x-ray 7 12/09/18 Completed Diabetic retinal eye exam 8 10/22/18 Completed Mammogram 9 07/06/18 Completed Cataract Phacoemulsification with lens implant 10, 11 04/29/18 Completed Ultrasound scan of thyroid 12 03/05/18 Completed X-ray tomography of left shoulder 13 07/14/17 Completed Mammogram 14 06/30/17 Completed Eye examination 02/14/17 Completed Carotid artery doppler assessment 15 01/22/17 Completed Chest x-ray 16 01/20/[address] head w/o contrast 17 01/20/17 C ompleted MRI of brain without contrast 18 01/20/[address] of head 19 01/03/17 Completed MRI of brain and brain stem 20 11/18/16 Completed Chest x-ray 21 11/17/[address] head without contrast 22 11/17/16 Completed Echocardiogram 23 11/17/16 Complet ed EKG 24 11/17/16 Completed Emergency medical services 25 11/17/16 Completed Magnetic resonance angiograp hy (MRA) of carotid artery 26 11/17/16 Completed MRA head 27 11/17/16 Completed DEXA - Dual energy X-ray michell ton absorptiometry 28, 29, 30, 31 11/11/16 Co mpleted Diabetic retinal eye exam 32 08/31/16 Completed Mammogram 33, 34 06/26/16 Complete d Cholecystectomy 35 03/05/16 Comple shanta Nuclear medicine hepatobilia ry scan with ejection fraction 36 02/12/16 Comple shanta biliary Ultrasound 37 02/01/16 Com pleted Colonoscopy 38 10/04/15 Completed Eye examination 39 09/06/15 Comple shanta Eye examination 40 08/11/14 Comple shanta Mammography 41 06/22/14 Completed colonoscopy and polypectomy 42, 43 09/10/10 Completed DEXA - Dual energy X-ray michell ton absorptiometry 44 07/09/10 Completed colonoscopy normal 45 2000 Com pleted NICKY BSO - Total abdominal hy sterectomy and bilateral salpingo-oophorectomy 1999 Completed Bladder operation 46 08/18/98 Comp leted Plantar fasciotomy 47 08/18/97 Com pleted Curettage of uterus 1973 Compl eted Tonsillectomy 1950 Completed 1Upon dilation, no neovascularization of the disc was observed and the macula was clear OU, with no diabetic macular edema. There was no signs of diabetic retinopathy in either eye at the time of the visit. The peripheral retina was flat and intact 360 degress OU. 2Bladder appears normal tollerated the procedure well no complications 3No diabetic retinopathy, no diabetic macular edema 4COLO diverticulosis, HF polyp 3 mm CF, DC polyp 3 mm CF, hemorhoids internal and external 5Repeat in 5 years. 6Impression: There is no mammographic evidence of malignancy. A 1 year screening mammogram is recommended. 7No active disease in the chest 8No diabetic retinopathy, no diabetic macular edema in either eye. 9no mammographic evidence of malignancy. A 1 year screning mammogram is recommended 10Right eye 04/15/18. Left eye 04/29/18 11see scanned report 12Mulitnodular thyroid gland similar to preceeding study. 13Mild soft tissue swelling without acute fracture or discoloration degenerative changes as above 14There is no mammographic evidence of malignancy. A 1yr screening mammogram is recommended 151. Mild right and mild to moderate left carotid atherosclerotic plaquing without hemodynamically significant stenosis. 2. Normal antegrade vertebral flow bilaterally. 16No acute cardiopulmonary process 17No acute intracranial abnormality 181. No acute intracranial abnormality. No acute ischemia or hemorrhage. 2. Mild atrophy with chronic microvascular ischemic changes. 3. 5mm pineal gland cyst incidentally noted 19Impression No acute intracranial abnormality 20no acute intracranial findings. No intracranial mass or pathologic enhancement. Mild atrophy and mid small vessel disease. 21In ER - normal 22In ER - shows OLD lacunar infarct and questionable micorvascular ischemic changes 23Hyperdynamic left ventricular systolic function. Mild concentric left ventriclar hypertrophy. Type 1 left ventricular diastolic dysfuntion. Trace pulmonic regurgitation. No significant valvular abnormalities. No cardiac source of emboli noted. 24in ER - normal 25er - evaluated and admitted for stoke like sx. 26unremarkable mRA of carotid 27unremarkable MRA of the intracranial circulation 28AP spine T-score : -0.9; Dual Femur T-score: -1.7 29AP Spine L1-L2 with a T-score of -1.4. Moderate fx risk. Femur Neck Left with a T-score of -2.3. Moderate fx risk. Femur Neck Right with a T-score of -2.1. Moderate fx risk. 302.2% better in hips, 6.3% better in spine 315.4% 10 yr risk of hip fx., 21% risk of spine fx. 32extensive report 33No malignancy. One year screening recommended. 34No malignancy. One year screening recommended. 35Gallbladder: 1. Cholesterol polyp. 2. No gallstones identified. 361. No evidence for cystic duct obstruction 2. Gallbladder ejection fraction calculated to be 11% . This is considered to be abnormally low 37Normal biliary ultrasound 38Repeat in 5 yrs Diverticulosis in the sigmoid colon and in the ascending colon. 39no diabetic retinopathy 401. No diabetic macular edema. 2. No diabetic retinopathy. 41no mammographic evidence of malignancy 42error: - path. did show a tubular adenoma 43normal 44-2.4 LS spine; getting worse at all sites 45clear 46fulguration and biopsy 47withcheilectomy, rigvht first MP and =distal meaphyseal osteotomy of right first metatarsal Vital Signs Most recent to oldest [Reference Range]: 1 Height 160.4 cm (12/09/23 11:00 AM) Patient Weight 63.7 kg (12/09/23 11:00 AM) Body Mass Index 24.76 kg/m2 (12/09/23 11:00 AM) Heart Rate 97 bpm (12/09/23 11:00 AM) Respiratory Rate 18 br/min (12/09/23 11:00 AM) Blood Pressure 120/66mmHg (12/09/23 11:00 AM) Cuff Pulse Pressure 54 mmHg (12/09/23 11:00 AM) Social History Social History Type Response Tobacco 2, 0.25 per day. 11 year(s). Total pack years: 3. Started age 18 Years. Stopped age 29 Years. Smoking Status Never smoked cigaret robina Sex Female Sex Representation Female (finding) FCM Outpt Note * SHAILA Spencer, Leelee Huynh: PERFORM Event Display: FCM Outpt Note Authored Date: [id number] Chief Complaint Pre op clearance. right knee sx. History of Present Illness PRE-OPERATIVE EVALUTION Patient is a 77 yo female presenting for preoperative evaluation for right TKA with Dr. Blair on 12/19/23. She has been struggling with worsening pain in her right knee for the past 6 months. She was treated with intraarticular injectionswithout any perceived benefit. MRI confirmed end stage osteoarthritis of the right knee with associated meniscus tear. She has seen pre-anesthesia, completing her EKG and labs at that time Requested by:Dr. Blair at [facility] Planned surgery: (R) knee TKA at [facility] on12/19/23. [X]Intermediate risk(intraperitoneal, intrathoracic, CEA, head/ neck, ortho, urologic, prostate) Exercise tolerance: 3-6 METS [Moderate]:fast walk; stationery bike; fast dance; rake leaves; garden; push mowing Bleeding tendency:Denies h/o bleeding disorders or blood clots.Patient is on Plavix but awareto [id number] prior to procedure Substance use:None Prior anesthesia:No history of anesthesia complications with prior surgeries Revised Cardiac Risk Index: Score=1 [0] Higher Risk Surgery (intraperitoneal, intrathoracic, supra-inguinal vascular) [0] Ischemic Heart Disease [0] History of CHF [0] History of cerebrovascular disease [X] Insulin therapy for DM [0] Pre-op Cr >2 Total Score= 1 Review of Systems ROS per HPI Physical Exam Vitals & Measurements HR:97(Monitored) RR:18 BP:120/66 SpO2:99% HT:160.4cm WT:63.700kg(Dosing) WT:63.7kg BMI:24.76 PHQ2 Data(Data Documented on:12/09/2023 10:59) Emotional health assessment NEGATIVE General: Alert and oriented,No acute distress,Very pleasant Well groomed Eye: Pupils are equal, round and reactive to light,Extraocular movements are intact,Normal conjunctiva. HENT: Normocephalic, Neck: Supple,No lymphadenopathy. Respiratory: Lungs are clear to auscultation,Respirations are non- labored,Breath sounds are equal,Symmetrical chest wall expansion. Cardiovascular: Normal rate,Regular rhythm,No gallop,No edema. Abdomen: Normoactive BS x 4. No R/G/R. No organomegaly. Soft, nontender, nondistended Lymphatics: No submandibular, anterior or posterior cervical adenopathy palpable. Musculoskeletal:Extensivefunctional arthritic changes. Gait abnormality secondary to OA of knee. Currently using a crutch for stability Normal gait. Integumentary: Warm,[place]. No rashes or changing lesions. Neurologic: Alert,Oriented,Cranial Nerves II-XII are grossly intact. Cognition and Speech: Oriented,Speech clear and coherent,Functional cognition intact. Psychiatric: Cooperative,Appropriate mood & affect,Normal judgment. Assessment/Plan 1.Encounter for pre-operative examination Litzyis seen for teresa-operative risk stratification. They report no cardiac symptoms at restor on exertion. They have no history of ischemic heart disease, CHF, CVD, EtOH/drug abuse, personalor family history of coagulopathy, or CKD. 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 Sheis on insulin therapy with Lantusas well at [facility]. Her A1c is withingoal at 7.8%. They report no history of undergoing a stress test, cardiac catheterization, or coronary revascularization. They report being able to [id number] of activity. _This patient's cardiac risk factors include DM2, insulin dependent and daily PlavixAccording to the RCRI, this number of risk factors stratifies the patient to ClassI, whichcarries with it a3.9%risk of major adverse cardiac event, such as MO, cardiacarrest, or . In this case, however, the RCRI likelyover-estimatesthe patient's true cardiac risk given their history of_ and due to the fact that thissurgery is considered amoderaterisk. These risks, along with the risk of teresa-operative stroke, were discussed with the patient, in light of the benefits of possible surgery._ She wishes to proceedwith the operation. This assessment was conveyed to the requesting physician/surgery team. She is medically optimized for the scheduled (R) TKA on 12/19/23 Problem List/Past Medical History Ongoing Abnormal EKG Age-related nuclear cataract, bilateral ANXIETY DISORDER Carotid artery plaque Chronic GERD Constipation DIABETES WITH NEUROLOGICAL MANIFESTATIONS Drusen (degenerative) of macula, left eye First degree AV block History of bladder cancer History of colon polyps HISTORY OF TOBACCO USE HTN (hypertension) LEIOMYOMA OF UTERUS, UNSPECIFIED LIPOPROTEIN DEFICIENCIES Nevus of choroid of left eye Osteoporosis Other specified diabetes mellitus with mild nonproliferative diabetic retinopathy without macular edema, bilateral PERSONAL HISTORY OF COLONIC POLYPS POLYNEUROPATHY IN DIABETES Presence of pessary PURE HYPERCHOLESTEROLEMIA Right thyroid nodule Vitreous floaters of right eye Resolved Acute UTI Closed fracture of distal fibula Fibula fracture Hyperkalemia Hyperthyroidism Lower urinary tract symptoms Lung crackles NEOPLASM OF UNCERTAIN BEHAVIOR OF SKIN Pharyngitis Tarsal Tunnel Syndrome TOXIC UNINODULAR GOITER Procedure/Surgical History Diabetic retinal eye exam| Service Date: 2Cystoscopy| Service Date: 2Diabetic retinal eye exam| Service Date: 1Colonoscopy| Service Date: 11/09/2020Mammogram| Service Date: 09/20/2020hest x-ray| Service Date: 12/09/2018Diabetic retinal eye exam| Service Date: 10/22/2018Mammogram| Service Date: 07/06/2018Cataract Phacoemulsification with lens implant| Service Date: 04/29/2018Ultrasound scan of thyroid| Service Date: 03/05/2018X-ray tomography of left shoulder| Service Date: 07/14/2017Mammogram| Service Date: 06/30/2017Eye examin ation| Service Date: 02/14/2017Carotid artery doppler assessment| Service Date: 01/22/2017MRIof brain without contrast| Service Date: 01/20/2017CT head w/o contrast| Service Date: 01/20/2017Chest x-ray| Service Date: 01/20/2017CT of head| Service Date: 01/03/2017MRI of brain and brain stem| Service Date: 11/18/2016Echocardiogram| Service Date: 11/17/2016Magnetic resonanceangiography (MRA) of carotid artery| Service Date: 11/17/2016MRA head| Service Date: 11/17/2016Chest x-ray| Service Date: 11/17/2016CT head without contrast| Service Date: 11/17/2016EKG| Service Date: 11/17/2016Emergency medical services| Service Date: 11/17/2016DEXA - Dual energyX-ray photon absorptiometry| Service Date: 11/11/2016Diabetic retinal eye exam| Service Date: 08/31/2016Mammogram| Service Date: 06/26/2016Cholecystectomy| Service Date: 03/05/2016Nuclearmedicine hepatobiliary scan with ejection fraction| Service Date: 02/12/2016biliary Ultrasound| Service Date: 02/01/2016Colonoscopy| Service Date: 10/04/2015Eye examination| Service Date: 09/06/2015Eye examination| Service Date: 08/11/2014Mammography| Service Date: 06/22/2014colonoscopy and polypectomy| Service Date: 09/10/2010DEXA - Dual energy X-ray photon absorptiometry| Service Date: 07/09/2010colonoscopy normal| Service Date: BSO - Total abdominal hysterectomy and bilateral salpingo- oophorectomy| Service Date: 1999Bladder operation| Service Date: 08/05Plantar fasciotomy| Service Date: 08/18/1997Curettage of uterus| Service Date: 1973Tonsillectomy| Service Date: 1949 Medications atorvastatin(atorvastatin 40 mg oral tablet), 1 tab, PO, Daily buPROPion(buPROPion 200 mg/12 hours (SR) oral tablet, extended release), 200 mg= 1 tab, PO, bid, 4 refills chlorthalidone(chlorthalidone 25 mg oral tablet), 1 tab, PO, q48h cholecalciferol(Vitamin D3 2000 intl units oral capsule), 2000 Int_Unit= 1 cap, PO, Daily clopidogrel(clopidogrel 75 mg oral tablet), 1 tab, PO, Daily cyanocobalamin(Vitamin B12 1000 mcg oral tablet), See Instructions diabetes supplies(FreeStyle (28G) Lancets), See Instructions, 4 refills diabetic supplies(FreeStyle Lite Test Strips 100 ct), See Instructions, 10 refills dulaglutide(Trulicity Pen 0.75 mg/0.5 mL subcutaneous solution), 0.75 mg, subQ, q7days, 5 refills escitalopram(escitalopram 20 mg oral tablet), 1 tab, PO, Daily famotidine(famotidine 20 mg oral tablet), See Instructions hydrOXYzine(hydrOXYzine hydrochloride 10 mg oral tablet), 1 TO 2 TABLETS, PO, tid, PRN insulin glargine(Lantus Solostar Pen 100 units/mL subcutaneous solution), 14 unit, subQ, Daily irbesartan(irbesartan 75 mg oral tablet), 1 tab, PO, qPM metFORMIN(MetFORMIN (Eqv-Glucophage XR) 500 mg oral tablet, extended release), See Instructions multivitamin(Multiple Vitamins oral tablet), 1 tab, PO, Daily repaglinide(repaglinide 2 mg oral tablet), See Instructions, 1 refills unlisted medication(Freestyle Lancets), See Instructions, 1 refills unlisted medication(BD PEN LAST UF MINI 5MM 100'S 31G3/16), See Instructions unlisted medication(FREESTYLE LITE STRIPS 50'S), See Instructions Allergies SARS-CoV-2 (COVID-19) mRNA-1273 vaccine (Moderate)Syncope, Acute vomiting [place] Prefilled Penpancreatitis Macrobidsevere diarrhea Sertraline Hydrochloridejaw clenching empagliflozinUTI metFORMINlactic acidosis on doses above 1000 mg daily pioglitazonept. has previous hx of bladder cancere Social History Smoking Status Never smoked cigarettes Alcohol - No Risk Use:Current Type:Wine Frequency:1-2 times per month Average drinks per episode in last year:0.5 Maximum drinks per episode in last year:0.5 Employment/School Status:Retired Exercise - Occasional exercise Exercise type:Walking, shovels snow, mows with a push mower - Comments: treadmill x 15 min. 3-4 d/week Home/Environment - Low Risk Lives with:Alone Living situation:Home/Independent Alcohol abuse in household:No Substance abuse in household:No Smoker in household:No Injuries/Abuse/Neglect in household:No Feels unsafe at home:No Family/Friends available to help:Yes Tobacco - Low Risk Use:2 Tobacco use per day:0.25 Number of years:11 Total pack years:3 Started at age:18Years Stopped at age:29Years Family History Cholecystectomy: Brother. Colon cancer..: Father. Goiter: Daughter. Heart disease: Father. Osteoarthritis: Mother. Stroke: Mother. TIA: Mother. Health Status Family Member(s) Sister: History is negative Son: History is negative Son: History is negative Family Member(s) Relationship: Mother, Age: 98 Years, Cause: pneumonia Relationship: Father, Age: 88 Years, Cause: colon cancer Immunizations Vaccine Date Status SARS-CoV-2 (COVID-19) mRNA-vacc - RHA400 02/19/2023 Recorded influenza virus vaccine, inactivated 01/30/2023 Recorded SARS-CoV-2 mRNA (Pfizer 12+) bivalent 02/04/2022 Recorded influenza virus vaccine, inactivated 01/25/2022 Given SARS-CoV-2 mRNA (xeszunxsccp-snke-snz) 01/03/2021 Recorded Comments : felt achey, trouble sleeping, loss of appetitte, weakness, aches 2 days influenza virus vaccine, inactivated 2020 Given SARS-CoV-2 (COVID-19) mRNA BNT-162b2 vax 06/05/2020 Recorded Comments : at [facility] SARS-CoV-2 (COVID-19) mRNA BNT-162b2 vax 05/15/2020 Recorded Comments : at [facility] pneumococcal 23-valent vaccine 01/31/2020 Given influenza virus vaccine, inactivated 01/17/2020 Recorded Comments : at [facility] zoster vaccine, inactivated 10/04/2019 Recorded influenza virus vaccine, inactivated 12/18/2018 Recorded zoster vaccine, inactivated 10/03/2018 Recorded influenza virus vaccine, inactivated 01/21/2018 Given influenza virus vaccine, inactivated 01/21/2017 Recorded tetanus toxoids-diphtheria, Td (Adult) 11/08/2016 Recorded influenza virus vaccine, inactivated 12/27/2015 Given influenza virus vaccine, inactivated 01/19/2015 Recorded hepatitis B adult vaccine 05/26/2014 Given pneumococcal 13-valent vaccine 05/26/2014 Given Comments : Patient Not Available/Off Unit influenza virus vaccine, inactivated 12/10/2013 Given hepatitis B adult vaccine 11/04/2013 Given hepatitis B adult vaccine 09/01/2013 Given influenza virus vaccine, inactivated 12/24/2012 Given influenza virus vaccine, H1N1 01/01/2012 Recorded zoster vaccine live 10/16/2011 Recorded pneumococcal 23-valent vaccine 08/06/2006 Recorded tetanus/diphtheria/pertuss, acel (Tdap) 08/06/2006 Recorded pneumococcal 23-valent vaccine 01/20/2002 Recorded Recommendations Health Maintenance Pending(in the next year) OverDue Medicare Annual Wellness Visit due08/02/22and every 1year Adult Influenza Vaccine due10/05/23and every 1year Due Adult Social Determinants of Health Screening due12/09/23Unknown Frequency Due In Future Diabetic Eye Exam not due until01/01/24and every 731day Diabetes Management A1c not due until07/16/24and every 366day Satisfied(in the past 1 year) Satisfied Adult Influenza Vaccine on01/30/23.Satisfied by NATHANAEL Matute Karli R Body Mass Index on12/09/23.Satisfied by NATHANAEL Herring Kyla Breast Cancer Screening on11/03/23.Satisfied by SOILA Chao Lynnae Diabetes Management A1c on07/16/23.Satisfied by Contributor_system, [email or web address] Lipid Screening on03/18/23.Satisfied by Contributor_system, [email or web address] Electronic Signature on File Electronically Reviewed/Signed by: Leelee Spencer PA-C Author Signature Dt/Tm:12/09/2023 01:14 PM Department of Family Medicine [facility]GEL[facility] Patient Care team information Care Team Personnel Name: SHAILA Spencer, Leelee Huynh Position: Physician Asst Exmpt - Family Med Member Role: Primary Care Provider Address: [address] [place] [address] Care Team Related Persons Name: DEEP ROE Name: DEEP ROE"
[2023-12-19] MEDS ORDERED: MIDAZOLAM HCL 1 MG/ML 2ML VIAL ONE (07:43)
[2023-12-19] MEDS ORDERED: fentaNYL citrate PF 100 MCG/2 ML VIAL ONE (07:43)
[2023-12-19] MEDS: LR 60ML/HR IV SCH (07:50)
[2023-12-19] MEDS: LR 500ML BOLUS, THEN 15ML/HR IV SCH (07:50)
[2023-12-19] MEDS: GABAPENTIN 300 MG CAP PO SCH (07:51)
[2023-12-19] MEDS: dexAMETHasone**PF** 10 MG/ML VIAL IV SCH (07:51)
[2023-12-19] MEDS: FAMOTIDINE 20 MG TAB PO SCH (07:51)
[2023-12-19] MEDS: ACETAMINOPHEN 500 MG TAB PO SCH ×2 (07:51→13:32)
--- NOTE | 2023-12-19 07:51 | History & Physical Bridge Note ---
Date of Service December 19, 2023 History & Physical Bridge Note I have examined the patient, reviewed the History & Physical and in the interval since the performance of the History & Physical I have noted the following changes of clinical significance: no changes noted
[2023-12-19] MEDS ORDERED: ATROPINE SULFATE 0.1 MG/ML 10ML SYR IV PRN (08:27)
[2023-12-19] MEDS ORDERED: ePHEDrine sulfate 50 MG/ML AMP IV PRN (08:27)
[2023-12-19] MEDS ORDERED: HYDROmorphone INJ 1 MG/ML SYRINGE IV PRN (08:27)
[2023-12-19] MEDS ORDERED: fentaNYL citrate PF 100 MCG/2 ML VIAL IV PRN (08:27)
[2023-12-19] MEDS ORDERED: ONDANSETRON INJ 2 MG/ML 2 ML VIAL IV PRN ×2 (08:27→11:28)
[2023-12-19] MEDS: TRANEXAMIC ACID 1,000 MG **IV Pre-op IV SCH (08:43)
[2023-12-19] MEDS ORDERED: ONDANSETRON INJ 2 MG/ML 2 ML VIAL ONE (09:24)
[2023-12-19] MEDS ORDERED: PHENYLEPHRINE 100MCG/ML 10ML SYR IV ONE (09:24)
[2023-12-19] MEDS ORDERED: PROPOFOL IV EMULSION 10 MG/ML 20 ML VIAL IV ONE ×2 (09:24→09:59)
[2023-12-19] MEDS: ORTHO JOINT ANESTHETIC ONE (09:25)
[2023-12-19] MEDS: ceFAZolin 2000MG 2,000 MG/15 ML SYR IV SCH ×2 (09:25→17:45)
[2023-12-19] MEDS: ROPIV 0.5% 246mg, Ketorolac 30mg, EPINEPHrine 0.5mg in NSS INFIL SCH (09:26)
--- NOTE | 2023-12-19 09:53 | Operative Report ---
PG Post Operative Report Pre & Post Diagnosis Operation Date: 12/19/23 09:00 Pre-Op Diagnosis: Right Knee Degenerative Joint Disease Post-Op Diagnosis: Right Knee Degenerative Joint Disease I identified the patient and participated in the time-out.: Yes Procedure Operation Date: 12/19/23 09:00 Actual Procedures p Right Total Knee Arthroplasty(Right) - Сергей Blair DO Surgeon Сергей Blair DO Operations And Maintenance Supervisor Сергей Salazar PA-C Estimated Blood Loss 30 Findings Consistent with Post-Op Diagnosis Specimens Right femoral and tibial bone Description of Procedure Implants used: I used a Gelacio Persona total knee arthroplasty system with a size 6 standard femur, C tibia, 28 oval patella, and a size 11 medial congruent polyethylene bearing. All components were cemented in place with Biomet cement. [facility] for the above procedure. She was seen in the preoperative holding area and the operative extremity was identified and signed. She was given a preoperative antibiotic, TXA, a spinal anesthetic and an adductor nerve block. She was taken back to the operating room and laid on the table in supine position. She was given basic sedation. The operative knee was then prepped and draped in sterile fashion. A timeout was done, and the patient and the operative extremity was properly identified. A midline incision was made directly over the patella. Dissection was taken down to the extensor mechanism. A subvastus arthrotomy was used. The medial retinaculum was released and the fat pad was mostly excised. The knee was flexed and the ACL, PCL, and meniscus were removed. A drill was sent down the center of the femoral canal followed by an intramedullary alphonse. Off that alphonse a distal femoral cutting block was placed. 9 mm was resected off the distal femur at 5 of valgus. A posterior referencing AP sizing guide was then placed on the distal femur. The femur measured to be a size 6. 2 drill holes were placed in 3 of external rotation. A 4-in-1 cutting block was then impacted into place. Anterior, posterior, and chamfer cuts were then made. The proximal tibia was then exposed. An external tibial alignment guide was placed. A tibial cut guide was then anchored in place and the proximal tibia was then resected. The posterior aspect of the knee was then opened up and any additional meniscus fragments and osteophytes were removed. The tibia measured to be a size C. The tibial plate was then placed in the appropriate rotation and the tibia was drilled and punched. Trial components were then placed. I used a size 11 medial congruent polyethylene insert. The knee was brought through a full range of motion and felt to be stable. The peg holes for the femoral component were then drilled. The patella was then everted and 9 mm was resected off the posterior aspect of the patella. The patella measured to be a size 28 oval. 3 peg holes were then drilled. A trial patella was placed. The knee was once again brought through a full range of motion and felt to be stable. Trial components were then removed. The surrounding soft tissues were injected with 100 cc of an orthopedic pain control cocktail. All components were then cemented into place with Biomet cement. The final polyethylene insert was then snapped into place. Once cement was dry the tourniquet was deflated. Hemostasis was obtained. A dilute betadyne lavage was then done for 3 minutes. The joint was then irrigated with normal saline solution. The subvastus ar throtomy was then closed with #1 Vicryl suture. The skin was closed with 2-0 Vicryl, 3-0V lock suture, and sydni. A soft compressive dressing was placed. She was then transferred to a hospital bed and taken to the postanesthesia care unit in stable condition. She tolerated the procedure well. Сергей Salazar PA-C, was present for the entire procedure. He was critical for patient positioning, prepping, draping, retraction exposure, wound closure and application of sterile dressing. I attest to the content of the Intraoperative Record and any orders documented therein. Any exceptions are noted below.
[2023-12-19] MEDS: TRANEXAMIC ACID 1,000 MG **IV Intra-op IV SCH (09:56)
--- NOTE | 2023-12-19 10:59 | Anesthesiology Progress Note ---
Date of Service December 19, 2023 Anesthesia Post Procedure Vital Signs Vital Signs: Temp Pulse Resp BP Pulse Ox O2 Del Method O2 Flow Rate 12/19/23 10:50 84 14 136/67 93 Room Air 12/19/23 10:40 82 14 136/63 99 Oxymask 3 12/19/23 10:30 82 16 139/71 100 Oxymask 5 12/19/23 10:20 83 18 134/71 99 Oxymask 5 12/19/23 10:13 36.0 C L 83 16 120/62 95 Oxymask 8 12/19/23 07:34 36.6 C 80 20 158/78 H 99 Room Air Transfer of Care Handoff Completed per policy Notes Mental Status: alert / awake / arousable and participated in evaluation Patient Amnestic to Procedure: Yes Nausea / Vomiting: adequately controlled Pain: adequately controlled Airway Patency, RR, SpO2: stable & adequate BP & HR: stable & adequate Hydration State: stable & adequate Neuraxial Anesthesia: was administered and sensory block is resolving Anesthetic Complications: no major complications apparent and Pt Satisfied with anesthetic care
[2023-12-19] MEDS ORDERED: PHARMACY GLYCEMIC MGMT CONSULT PRN (11:28)
[2023-12-19] MEDS ORDERED: bisacodyL 10 MG SUPP PR PRN (11:28)
[2023-12-19] MEDS ORDERED: NALOXONE HCL 0.4 MG/1 ML VIAL/CARP IV PRN (11:28)
[2023-12-19] MEDS ORDERED: MAGNESIUM HYDROXIDE SUSP 30 ML UDC PO PRN (11:28)
[2023-12-19] MEDS ORDERED: METOCLOPRAMIDE HCL INJ 5 MG/ML 2 ML VIAL IV PRN (11:28)
[2023-12-19] MEDS ORDERED: GLUCOSE 40% GEL 15 GM TUBE PO PRN (12:00)
[2023-12-19] MEDS ORDERED: GLUCAGON FOR INJ 1 MG VIAL IM PRN (12:00)
[2023-12-19] MEDS ORDERED: GLUCOSE 10 TAB/TUBE PO PRN (12:00)
[2023-12-19] MEDS ORDERED: CARBOHYDRATES FOR HYPOGLYCEMIA PO PRN (12:00)
[2023-12-19] MEDS ORDERED: DEXTROSE 50% 50 ML SYRINGE IV PRN (12:00)
[2023-12-19] MEDS: SODIUM CHLORIDE 0.9% 1,000 ML IV SCH (12:09)
[2023-12-19] MEDS: INSULIN ASPART PER UNIT CHARGE SC SCH (12:51)
--- NOTE | 2023-12-19 12:57 | XRay Report ---
XR knee RT 1 or 2V routine CLINICAL HISTORY: Surgical Post Op TECHNIQUE: 2 views of the right knee were obtained. Comparison: Comparison is made to MRI right knee 10/17/2023 FINDINGS: Patient is status post total knee arthroplasty with expected postsurgical changes including soft tiss ue swelling and subcutaneous emphysema. No periarticular lucency or hardware fracture is seen. IMPRESSION: Expected postoperative appearance status post placement of total knee arthroplasty. ACT 112: Negative or not required by law. Electronically signed by: Oscar Ly M.D. 12/19/2023 12:56 PM
--- NOTE | 2023-12-19 13:59 | Pharmacy Report ---
Pharmacy Glycemic Short Note 2 - Date of Service December 19, 2023 - Glycemic Short BSG Results (Last 24 hours): 12/19/23 12/19/23 12/19/23 07:27 08:27 10:17 POC Glucose 100 H 107 H 139 H 12/19/23 11:29 POC Glucose 147 H OUTPATIENT ANTIDIABETIC REGIMEN: * Lantus 16 units SQ qAM * Trulicity 0.75 mg SQ on Wednesdays * Metformin 500mg PO qAM, 1gm PO qPM * Prandin 2mg PO ACHS * HbA1c: 7.8% (11/20/23) ASSESSMENT: * Ms Huizar is an 78yo diabetic F, POD 0 s/p R TKA with Dr Blair this morning. * Pt received 10mg IV dexamethasone pre-op this morning, which is likely to cause steroid-induced hyperglycemia. * Pt initiated on basal/bolus insulin on admission. Carb coverage has been ordered somewhat aggressively for now, as steroids have their most profound effect on postprandial hyperglycemia. * Pharmacy will continue to follow and adjust regimen as indicated. PLAN FOR INPATIENT GLYCEMIC CONTROL: * Hold outpatient oral diabetes medications * Basal insulin * Lantus 15 units SQ daily, beginning tomorrow * Pt took 8 units of Lantus this morning, prior to arrival * Bolus insulin * NovoLog per scale ACHS or Q6hrs while NPO * Goal Range: Low 110 mg/dL - High 140 mg/dL * Correction Factor: 35 mg/dL/unit * Nutritional / Prandial insulin per carb ratio of 1 unit per 10 grams CHO consumed
[2023-12-19] MEDS: oxyCODONE HCL IR 5 MG TAB (IMMEDIATE RELEASE) PO PRN (15:56)
[2023-12-19] MEDS: LANTUS PER UNIT CHARGE SC ONE (17:43)
[2023-12-19] MEDS: LOSARTAN POTASSIUM 25 MG TAB PO SCH (21:28)
[2023-12-19] MEDS: SENNA 8.6 MG TAB PO SCH (21:31)
[2023-12-19] MEDS: DOCUSATE SODIUM 100 MG CAP PO SCH (21:32)
[2023-12-19] MEDS: ASPIRIN 81 MG ECTAB PO SCH (22:05)
[2023-12-20] MEDS: INSULIN ASPART PER UNIT CHARGE SC SCH (02:05)
[2023-12-20] MEDS: HYDROmorphone INJ 0.5 MG/0.5 ML SYR IV PRN (02:15)
--- NOTE | 2023-12-20 08:08 | Orthopedic Progress Note ---
Date of Service December 20, 2023 Assessment & Plan (1) Status post right knee replacement: Overall she is doing very well. She is not having much pain in the right knee. She will be seen by physical therapy today for ambulation and range of motion exercises. The nursing staff can change her dressing after physical therapy. She is on aspirin and Plavix for DVT prophylaxis. She can be discharged home later today. She will follow-up with orthopedics in 2 weeks. Verónica Mcghee was seen and examined at bedside this morning. Overall she is doing very well. She is not having much pain in the right knee. She has been up and ambulating to the bathroom. She has no complaints.. Review of Systems All systems reviewed & are unremarkable except as noted in HPI & below. Physical Exam On physical examination of the right knee, the dressing is clean and dry. Her leg is out full extension. She has active dorsiflexion plantarflexion of the right ankle.. Results & Data Results & Data Laboratory Results . Diagnostic Findings Postoperative x-rays of the right knee show the prosthesis to be in anatomic alignment without any evidence of fracture complication, or loosening.. PG Care Time/CCT Total # of Minutes Spent Total Time Spent with Patient: Total time spent is greater than 50% in coordination of care (as documented) at patient's floor/unit and/or counseling patient: Coding Level of Care Code 06572 Post Operative Follow-Up Diagnoses Status post right knee replacement Z96.651
--- NOTE | 2023-12-20 08:10 | Discharge Summary ---
Date of Service December 20, 2023 Admission HPI (Per Admitting) Litzy is a pleasant 77-year-old female who has been dealing with severe right knee pain since June. For the past 3 months, she has been almost unable to ambulate on her knee. She is using a crutch. She saw one of the providers in our office. She has had x-rays of her knee with minimal relief. She has an MRI, which shows advanced medial compartmental arthritis. After failing conservative treatment, she has elected to proceed with a right total knee arthroplasty. Admission Exam (Per Admitting) On physical examination of the right knee, she has slight varus deformity. She has tenderness palpation of the distal medial femoral condyle and over the medial joint line.. Principal Diagnosis Same as "Discharge Diagnosis" noted below under Discharge Instructions. Discharge Exam On physical examination of the right knee, the dressing is clean and dry. Her leg is out full extension. She has active dorsiflexion plantarflexion of the right ankle.. Discharge Data Procedures Performed Operation Date: 12/19/23 09:00 Actual Procedures p Right Total Knee Arthroplasty(Right) - Сергей Blair DO Ordered Studies 12/19/23 05:00 US - OR guided needle placemen Routine Hospital Course (1) Status post right knee replacement: On December 19, 2023 Litzy arrived at Health system and underwent a right knee replacement without complication. She had a spinal anesthetic. Postoperatively she was started on aspirin and Plavix for DVT prophylaxis and transferred to the general orthopedic floors. Her hospital course was uneventful. On postop day #1, her vital signs were stable and her pain was well-controlled. She was able to put his feet well with physical therapy doing ambulation and range of motion exercises. She was then discharged to home. She will follow-up with orthopedics in 2 weeks. PG Care Time/CCT Total # of Minutes Spent Total Time Spent with Patient: Total time spent is greater than 50% in coordination of care (as documented) at patient's floor/unit and/or counseling patient: Discharge Plan Discharge Items Patient Disposition: Home - Self-Care Reason For Visit: Right Knee Degenerative Joint Disease Discharge Diagnosis: Right knee replacement Activity: Per Instructions section Non-emergency contact: Surgeon Call non-emergency contact if: your wound has increased redness and your wound has increased drainage Follow-up/Referrals: Leelee Spencer PA-C [Primary Care Provider] - Diet: Regular Addtl Attending Provider Instructions: Activity and Therapy Recommendations: * If you are using [facility] then therapy will be provided at your home until they feel you have accomplished all of your goals. * If you are using [facility] then Physical Therapy will be provided until they feel you are ready to start Outpatient Physical Therapy. * If you are not using home therapy then Outpatient Physical Therapy should start about 3-5 days from your day of surgery. Therapy will last about 6-10 weeks * It is important not to put a pillow under your knee when you are relaxing or sleeping. It is just as important to make sure you are getting your knee perfectly straight as it is to regain your knee bend. * You were shown a series of exercises in the hospital. Do these exercises three times each day including the exercises you were shown in physical therapy. * Get up and walk several times each day. For the first four weeks, try not to stand or walk for more than one hour at a time. If you do stand or walk for more than one hour, you will not hurt anything, but your leg will likely swell. * As you feel comfortable, you may change from the walker or crutches to a cane and then to independent walking. Medications: * Narcotic You will likely be sent home from the hospital with a prescription for the narcotic pain medication that worked best throughout your stay. * Cefadroxil -take the antibiotic twice a day for 10 days to help prevent infection. * Plavix -continue taking your Plavix as prescribed. I also added aspirin 81 mg twice a day for 6 weeks to help prevent blood clots. * Other medications may be prescribed for specific circumstances. If you have any questions, please call the office at . * Resume previous home medications unless otherwise instructed TEDs/Elastic Stockings: The white elastic stockings help limit swelling and prevent blood clots from forming in your legs.~ The more you wear them, the more they work. Wear them for six weeks. Dressing Care: The dressing can be changed after physical therapy on postop day #1. Daily dry dressing changes for a few days, especially if the incision is still draining some. If the incision is not draining then you may leave the sydni open to air. If there is a little bit of drainage or if the sydni are getting stuck on your clothing then cover the incision with a dry dressing. The sydni will be removed at your 2 week follow-up appointment. Showering: You may shower 5 days from the day of surgery as long as the incision is no longer draining. You may shower with the sydni exposed. Let soapy water run over the sydni and pat them dry. Do not scrub or soak the incision. Things To Watch For: * Drainage from the incision site that occurs more than one week after your surgery. * Increased redness at the incision site. * Fever above 102 degrees Fahrenheit. * Unusual chest pain or shortness of breath. * Call [facility] at with any of the above problems Follow-Up Visit: Follow-up with Dr. Blair's PA (Сергей Salazar) 2-3 weeks after your day of surgery. He will remove your sydni and answer any questions. If you have any additional questions or concerns, Dr Blair is usually in the office at the same time and will be available An appointment was probably scheduled when you signed-up for surgery in the office. If you have any questions call Office Instructions: More detailed instructions as well as Frequently Asked Questions were provided in a folder by our office when you signed-up for surgery. Please review these instructions when you get home. If you have any further questions or concerns, please feel free to call the office at [phone] Pending Studies at Discharge: No Stand-Alone Forms: [facility] Medications and DC Order Prescriptions: New oxycodone 5 mg Tablet 5 mg PO Q4H PRN (Reason: pain) Qty: 30 0RF cefadroxil 500 mg capsule 500 mg PO BID 10 Days Qty: 20 0RF aspirin 81 mg Tablet,Delayed Release (Dr/Ec) 81 mg PO BID 42 Days Qty: 84 0RF Continued Trulicity 0.75 mg/0.5 mL pen injector 0.75 mg subcut WK Patient Comments: takes fri. Lantus Solostar U-100 Insulin 100 unit/mL (3 mL) insulin pen 16 unit subcut QAM Patient Comments: took 8units this am for bsg 157 (DME) Walking Cane Misc See Rx Instructions .MEDSUPPLY Qty: 1 0RF Rx Instructions: As directed multivitamin Tablet 1 tab PO QAM atorvastatin [Lipitor] 40 mg Tablet 40 mg PO QAM metformin 500 mg Tablet 500 mg PO UD Patient Comments: 1 tab qam/2 tab qpm repaglinide [Prandin] 2 mg Tablet 2 mg PO ACHS clopidogrel 75 mg Tablet 75 mg PO QAM verapamil 120 mg Tablet 120 mg PO QAM cholecalciferol (vitamin D3) 2,000 unit Tablet 2,000 unit PO QAM chlorthalidone 25 mg Tablet 25 mg PO Q2D irbesartan 75 mg Tablet 75 mg PO QPM bupropion HCl 200 mg Tablet Sustained-Release 12 Hr 200 mg PO QAM cyanocobalamin (vitamin B-12) 1,000 mcg Capsule 1,000 mcg PO QAM Discharge Orders: Discharge Order (Routine); Ordered 12/20/23 Ordered By: Сергей Blair Admission Data Admit Date/Time: 12/19/23 10:14 Attending Provider: Сергей Blair Admit Provider: Сергей Blair Primary Care Provider: Leelee Spencer
[2023-12-20 08:15] VITALS: BP 97/57; RESP 16; TEMP 97.7; O2SAT 97
[2023-12-20] MEDS ORDERED: LANTUS PER UNIT CHARGE SC SCH (09:00)
[2023-12-20] MEDS: LANTUS PER UNIT CHARGE SC SCH (09:17)
[2023-12-20] MEDS: CHLORTHALIDONE 25 MG TAB PO SCH (09:18)
[2023-12-20] MEDS: VERAPAMIL HCL 40 MG TAB PO SCH (09:19)
[2023-12-20] MEDS: MULTIVITAMIN TAB PO SCH (09:20)
[2023-12-20] MEDS: buPROPion SR 100 MG TABCR PO SCH (09:22)
[2023-12-20] MEDS: ATORVASTATIN 40 MG TAB PO SCH (09:22)
[2023-12-20] MEDS: CLOPIDOGREL BISULFATE 75 MG TAB PO SCH (09:23)
[2023-12-20] MEDS: CHOLECALCIFEROL 25 MCG (1000 UNITS) TAB PO SCH (09:23)
[2023-12-20 10:34] VITALS: PULSE 84
== END 2023-12-20 12:04 | disposition home or self-care (01) ==
LOC: ASU 07:00 → 3W 07:00

== ENCOUNTER 2024-03-30 19:04 | Inpatient (IN) ==
[2024-03-30] MEDS: dexAMETHasone**PF** 10 MG/ML VIAL IV ONE (19:20)
[2024-03-30 19:24] LABS: Base Excess VBG -3.1 mEq/L; HCO3 VBG 21 mmol/L; Oxygen Saturation VBG 69.3 %; PCO2 VBG 35 mmHg (38-50); PO2 VBG 41 mmHg; pH VBG 7.39 (7.36-7.41)
--- NOTE | 2024-03-30 19:26 | Emergency Department Note ---
Impression & Plan Acute respiratory failure with hypoxia, COVID-19, LLL pneumonia, Syncope ED Provider Note Provider: Anant Quinonez MD CHIEF COMPLAINT: Syncope, right ear/facial pain, COVID HISTORY OF PRESENT ILLNESS: Patient is a 78-year-old female past medical history of hypertension, diabetes, TIA presenting here today via ambulance from her home. Patient states she started to feel a little bit sick on Friday afternoon approximately 2 days ago. Started with some myalgias and cough and cold. Reports she developed more so today pain the angle of her right jaw and fatigue. No fevers reported at home. States it hurts when she eats that she is not been eating or drinking much today. Evident was in the bathroom and try to get up and was too weak and syncopized out of the floor. Denies striking her head. Son helped up. Noted by EMS to be hypoxic into the mid 70s on room air. With a nonrebreather patient satting in the high 80s. Patient not a smoker and denies a history of oxygen use in the past. Endorses some pain in the ankle the right jaw but not really a sore throat. Some diffuse fatigue and myalgias reported. Denies swelling. Denies sick contact to her knowledge. Did have the flu shot this year but not COVID shot as she gets sick with these. Had the initial COVID-vaccine in the past. Does not believe she had COVID in the past. Given a small several 100 cc IV fluid bolus prior to arrival. Noted by EMS to be hyperglycemic. Patient is a type II diabetic. PAST MEDICAL HISTORY: As noted above MEDICATIONS: Reviewed home medications SOCIAL HISTORY: Non-smoker, lives at home PHYSICAL EXAM: GENERAL: alert and oriented on stretcher nonrebreather in place somewhat fatigued in appearance but calm not frantic Head: normocephalic and atraumatic, no right mastoid swelling EYES: No injection, discharge or icterus. PERRL, EOMI. NECK: Trachea midline. Supple without appreciable lymph nodes or crepitus particularly in the right neck or submandibular region. ENT: Mucous membranes pink and moist. Pharynx without erythema or exudate. TMs clear bilaterally. LUNGS: Airway patent. No retractions but mildly tachypneic upon arrival. Breath sounds clear with without wheeze HEART: Regular rate and rhythm. No chest wall tenderness ABDOMEN: Soft mildly distended but non-tender, without guarding or rebound. SKIN: Acyanotic, warm, dry, without rashes EXTREMITIES: Without swelling, tenderness or deformity NEUROLOGICAL: No focal deficits. No aphasia. No facial droop or slurred speech. Normal strength and tone in the extremities. Sensation to gross touch normal. EK bpm sinus tachycardia. No clear acute ST segment elevation or depression with a QTc of 423. CONTINUOUS CARDIAC MONITORING: was ordered and showed a heart rate of 100s-120s bpm in sinus tachycardia Patient's laboratory studies and imaging reviewed. Differential includes Reactive airway disease, pneumonia, pneumothorax, COPD, CHF, infections, cardiac ischemia, pulmonary embolism, musculoskeletal, gastrointestinal, as well as other pathologies. IMPRESSION/MEDICAL DECISION MAKING: Patient hypoxic on nonrebreather but does not. Significant distress. Mildly tachypneic. Evidently COVID-positive. Repeat respiratory viral panel sent here today. Do not see evidence of clear AOM at this point. Was diagnosed with this and started on antibiotics earlier today. Given a dose of IV dexamethasone given the reported COVID-positive test and her severe hypoxia. Likely this contributed to her syncope. Denies significant pain or trauma but as she did collapse will obtain a CT of the head as well as with her facial complaints a CT of the neck and CTA of the chest to look for other lung pathology to exclude PE. No abdominal pain or hip tenderness or pelvic pain reported. No believe we need imaging here. No significant swelling of the lower extremities at this time. Given a small 500 cc fluid bolus that she reports decreased fluid intake. Will give a small DuoNeb to see if this helps with her breathing in addition to switch her to BiPAP given she is persistently hypoxic on nonrebreather. VBG here without acidosis or hypercarbia. Lactate not elevated. Glucose is elevated and she is a diabetic. Will monitor blood sugars but is receiving some IV fluid. Initially 500 cc IV fluid bolus of normal saline initiated. Being cautious to avoid fluid overload in this COVID-positive patient. Chest x-ray here without pneumothorax or lobar pneumonia noted or significant fluid overload upon arrival. No significant anemia or leukocytosis. Slight anion gap with elevated procalcitonin 2.76. CK, troponin, and BNP not severely elevated. Magnesium slightly low at 1.5. IV repletion ordered. Ordered Zosyn for antibiotic coverage. CT of the chest shows consolidation in the left lower lung levine. Zosyn should cover any aspiration component on top of traditional pneumonia. Patient to CT on nonrebreather and seems to be holding her own. Will try and see if she can maintain her O2 sats on this and not have significant work of breathing on the nonrebreather again. Did have a fever and given some Tylenol (did not tolerate oral Tylenol pills and given IV). Son and patient updated and agree with the plan to stay for further care. Hospitalist team contacted. DIAGNOSIS: Acute hypoxic respiratory failure, COVID-19, syncope, left lower lobe pneumonia DISPOSITION: Hospitalist will evaluate Patient was agreeable with this plan. Critical Care I have personally spent 55 minutes of critical care time in the direct management of this patient. This includes bedside care, interpretation of diagnostic studies, and testing, discussion with consultants, patient, and family members, and other required patient management activities. These 55 minutes is in excess of all separately billable procedures. Past Med/Surg History Problem List (Updated 03/30/24 @ 20:09 by Anant Quinonze M.D.) Syncope (Acute) LLL pneumonia (Acute) COVID-19 (Acute) Acute respiratory failure with hypoxia (Acute) Status post right knee replacement (~12/2023) Osteoarthritis of right knee Midline cystocele History of bladder cancer Encounter for pre-operative examination TIA (transient ischemic attack) 01/20/17 Stroke-like symptoms 11/17/16 Chest pain (Acute) 12/10/13 Atypical chest pain (Acute 12/10/13) 12/10/13-patient states was due to stress in setting of her mother's severe illness. Hypercholesteremia (Chronic) Diabetes (Chronic) Hypertension (Chronic) Medical History Hx of pancreatitis (~2018) Post-menopausal atrophic vaginitis Postmenopausal osteoporosis Rectocele Tubular adenoma of colon (2021) Urge and stress incontinence Diabetes mellitus, type 2 Bladder cancer Depression Transient ischemic attack (TIA) Hypertension Hyperlipidemia Surgical History History of cataract surgery Status post right foot surgery History of dilatation and curettage History of total abdominal hysterectomy and bilateral salpingo-oophorectomy History of colonoscopy History of cholecystectomy History of bladder surgery History of tooth extraction History of tonsillectomy and adenoidectomy History of surgical procedure on eye proper using laser Family History Father Family hx of colon cancer Colorectal cancer Mother Breast cancer Other Hypertension Denies family history of Ovarian cancer Uterine cancer Social History Smoking Status: Never smoker Second Hand Exposure: No; Do You Dip or Chew Tobacco: No; Hx Alcohol Use: No Hx Substance Use: No Preferred Language: Mongolian Communication Ability: Effective 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 Beliefs That Will Affect Care: None marital status: / Current Living Situation: Alone current occupational status: retired Feels Safe at Home: Yes Assistive Devices: Cane and Walker Allergies Allergies Allergy/AdvReac Type Severity Reaction Status Date / Time exenatide AdvReac Severe pancreatiti Verified 03/30/24 10:44 s phenol AdvReac Severe pancreatiti Verified 03/30/24 10:44 s meperidine AdvReac Mild NAUSEA Verified 03/30/24 10:44 nitrofurantoin AdvReac Mild DIARRHEA Verified 03/30/24 10:44 Home Meds Home Medications Medication Instructions Recorded Confirmed atorvastatin 40 mg tablet (Lipitor) 40 mg PO QAM 03/25/18 03/30/24 cholecalciferol (vitamin D3) 50 2,000 unit PO QAM 03/25/18 03/30/24 mcg (2,000 unit) tablet clopidogrel 75 mg tablet 75 mg PO QAM 03/25/18 03/30/24 metformin 500 mg tablet 500 mg PO UD 03/25/18 03/30/24 multivitamin 1 tab PO QAM 03/25/18 03/30/24 repaglinide 2 mg tablet (Prandin) 2 mg PO ACHS 03/25/18 03/30/24 verapamil 120 mg tablet 120 mg PO QAM 03/25/18 03/30/24 dulaglutide 0.75 mg/0.5 mL 0.75 mg subcut WK 12/12/20 03/30/24 subcutaneous pen injector (Trulicity) insulin glargine 100 unit/mL (3 16 unit subcut QAM 12/12/20 03/30/24 mL) subcutaneous pen (Lantus Solostar U-100 Insulin) bupropion HCl 200 mg tablet,12 hr 200 mg PO QAM 11/11/23 03/30/24 sustained-release chlorthalidone 25 mg tablet 25 mg PO Q2D 11/11/23 03/30/24 cyanocobalamin (vitamin B-12) 1,000 mcg PO QAM 11/11/23 03/30/24 1,000 mcg capsule irbesartan 75 mg tablet 75 mg PO QPM 11/11/23 03/30/24 Previous Rx's Medication Instructions Recorded Walking Cane #1 ea 10/22/23 oxycodone 5 mg tablet 5 mg PO Q4H PRN pain #30 tabs 12/29/23 walker #1 ea 01/06/24 amoxicillin 500 mg tablet 2,000 mg (4 x 500 mg) PO ONCE #4 03/11/24 tabs albuterol sulfate 90 mcg/actuation 2 puff inhalation Q6H PRN 03/30/24 aerosol inhaler shortness of breath or wheezing #6.7 grams amoxicillin 875 mg-potassium 1 tab PO BID 7 days #14 tabs 03/30/24 clavulanate 125 mg tablet benzonatate 100 mg capsule 100 mg PO BID PRN cough #14 caps 03/30/24 Results & Data (ED) Vital Signs Vital Signs - 24 hr 03/30/24 19:11 03/30/24 19:11 03/30/24 19:11 Temperature 38.2 C H Temperature Source Oral Pulse Rate 126 H 126 H Pulse Rate [Apical] 126 H Pulse Strength Normal Pulse Strength [Apical] Normal Respiratory Rate 30 H 30 H Respiratory Effort / Characteristics Labored Respiratory Depth Respiratory Pattern Blood Pressure 135/62 Blood Pressure Mean 86 Blood Pressure Position Sitting Pulse Oximetry 78 L 88 L 88 L Oxygen Delivery Method Room Air Non-rebreather Non-rebreather Oxygen Flow Rate 15 15 Fraction of Inspired Oxygen Sepsis Recent Fever Within 48 Hours Yes Sepsis New/Unexplained Change in Mental Status No Sepsis Action Taken by Nursing Physician Notified 03/30/24 19:23 03/30/24 20:39 Temperature Temperature Source Pulse Rate 113 H 103 H Pulse Rate [Apical] Pulse Strength Pulse Strength [Apical] Respiratory Rate 36 H Respiratory Effort / Characteristics Non-Labored Spontaneous Respiratory Depth Normal Respiratory Pattern Regular Blood Pressure Blood Pressure Mean Blood Pressure Position Pulse Oximetry 94 Oxygen Delivery Method Oxygen Flow Rate Fraction of Inspired Oxygen 80 Sepsis Recent Fever Within 48 Hours Sepsis New/Unexplained Change in Mental Status Sepsis Action Taken by Nursing Laboratory Data 03/30/24 19:11 03/30/24 19:11 Lab Results 03/30/24 Range/Units 19:11 WBC 7.76 (4.8-10.8) K/ul RBC 3.89 L (4.20-5.40) M/uL Hgb 11.8 L (12.0-16.0) g/dl Hct 35.1 L (37.0-47.0) % MCV 90.2 (80.0-100.0) fL MCH 30.3 (25.0-34.0) pg MCHC 33.6 (32.0-36.0) g/dL RDW Std Deviation 46.9 H (36.4-46.3) fL RDW Coeff of Mary 14.1 (11.5-14.5) % Plt Count 173 (130-400) K/uL MPV 10.0 (9.4-12.4) fL Immature Gran % (Auto) 0.3 % Neut % (Auto) 74.9 % Lymph % (Auto) 5.0 % [place] % (Auto) 19.6 % Eos % (Auto) 0.1 % Baso % (Auto) 0.1 % Neut # (Auto) 5.81 (1.40-6.50) K/uL Lymph # (Auto) 0.39 L (1.20-3.40) K/uL [place] # (Auto) 1.52 H (0.11-0.59) K/uL Eos # (Auto) 0.01 (0.00-0.50) K/uL Baso # (Auto) 0.01 (0.00-0.20) K/uL Immature Gran # (Auto) 0.02 (0.01-0.20) K/uL PT 10.8 (9.0-12.0) Seconds INR 1.0 (0.9-1.1) VBG pH 7.39 (7.36-7.41) VBG pCO2 35 L (38-50) mmHg VBG pO2 41 mmHg VBG HCO3 21 mmol/L VBG O2 Saturation 69.3 % VBG Base Excess -3.1 mEq/L Sodium 132 L (136-145) mmol/L Potassium 3.2 L (3.5-5.1) mmol/L Chloride 98 (98-107) mmol/L Carbon Dioxide 21 (21-32) mmol/L Anion Gap 13 H (3-11) BUN 28 H (6-23) mg/dl Creatinine 0.84 (0.6-1.2) mg/dl Est Cr Clr Drug Dosing 48.3 ml/min eGFR 70.20 BUN/Creatinine Ratio 33.3 H (10-20) Glucose 376 H* (70-99(Fasting)) mg/dl Lactate 1.3 (0.4-2.0) mmol/L Calcium 9.1 (8.6-10.3) mg/dl Magnesium 1.5 L (1.7-2.4) mg/dl Total Bilirubin 0.6 (0.2-1.0) mg/dl AST 25 (13-39) U/L ALT 21 (7-52) U/L Alkaline Phosphatase 63 (34-104) U/L Total Creatine Kinase 139 (26-192) U/L Troponin I High Sens 10.6 (0-14) pg/ml B-Natriuretic Peptide 108 H (0-100) pg/ml Total Protein 7.1 (6.0-8.3) gm/dl Albumin 4.0 (3.4-5.0) gm/dl Globulin 3.1 (2.5-4.0) gm/dl Albumin/Globulin Ratio 1.3 (0.9-2) Procalcitonin 2.76 H (0-0.5) ng/ml TSH 1.143 (0.300-4.500) uIu/ml Adenovirus (PCR) Not Detected (NotDetected) B. pertussis DNA (PCR) Not Detected (NotDetected) B.parapertussis DNA PCR Not Detected (NotDetected) C. pneumoniae DNA (PCR) Not Detected (NotDetected) Coronavirus OC43 (PCR) Not Detected (NotDetected) Coronavirus HKU1 (PCR) Not Detected (NotDetected) Coronavirus 229E (PCR) Not Detected (NotDetected) SARS-CoV-2 (PCR) DETECTED A (NotDetected) Coronavirus NL63 (PCR) Not Detected (NotDetected) Human Metapneumovir PCR Not Detected (NotDetected) Influenza Type A (PCR) Not Detected (NotDetected) Influenza Type B (PCR) Not Detected (NotDetected) M. pneumoniae (PCR) Not Detected (NotDetected) Parainfluenza 1 (PCR) Not Detected (NotDetected) Parainfluenza 2 (PCR) Not Detected (NotDetected) Parainfluenza 3 (PCR) Not Detected (NotDetected) Parainfluenza 4 (PCR) Not Detected (NotDetected) RSV (PCR) Not Detected (NotDetected) Entero/Rhino (PCR) Not Detected (NotDetected) Administered Medications Magnesium Sulfate/Dextrose (Magnesium Sulfate / D5w) 1 gm in 100 mls @ 200 mls/hr IV Q30M LESLIE Stop: 03/30/24 21:05 Last Admin: 03/30/24 20:21 Dose: 200 mls/hr Documented By: ERASMO Acetaminophen (Ofirmev) 1,000 mg in 100 mls @ 400 mls/hr IV NOW STA Stop: 03/30/24 20:51 Last Admin: 03/30/24 20:42 Dose: 400 mls/hr Documented By: ERASMO Discontinued Medications Acetaminophen (Acetaminophen 500 Mg Tab) 1,000 mg PO NOW STA Stop: 03/30/24 20:19 Last Admin: 03/30/24 20:29 Dose: Not Given Documented By: ERASMO Dexamethasone Sodium Phosphate (DexamethasonePf 10 Mg/Ml Vial) 6 mg IV NOW ONE Stop: 03/30/24 19:11 Last Admin: 03/30/24 19:20 Dose: 6 mg Documented By: ERASMO Sodium Chloride (Nss) 500 mls @ 999 mls/hr IV .Q31M ONE Stop: 03/30/24 19:54 Last Infusion: 03/30/24 20:37 Dose: Infused Documented By: Admin: 03/30/24 19:32 Dose: 999 mls/hr Documented By: ERASMO Piperacillin Sod/Tazobactam Sod (Zosyn) 4.5 gm in 100 mls @ 200 mls/hr IV NOW ONE; Protocol Stop: 03/30/24 20:34 Last Admin: 03/30/24 20:21 Dose: 200 mls/hr Documented By: ERASMO Sodium Chloride (Nss) 500 mls @ 999 mls/hr IV .Q31M ONE Stop: 03/30/24 20:39 Last Admin: 03/30/24 20:18 Dose: 999 mls/hr Documented By: ERASMO Ioversol (Optiray 320 125ml) 119 ml IV ONCE ONE Stop: 03/30/24 19:57 Last Admin: 03/30/24 19:56 Dose: 119 ml Documented By: BLAINE Imaging Data Radiologist's Impression: Chest X-Ray 03/30/24 19:07 Exam(s): XR CXR 1 VIEW EXAM: XR Chest, 1 View CLINICAL HISTORY: Reason for exam: weakness, syncope, covid hypoxia. TECHNIQUE: Frontal view of the chest. COMPARISON: Same-day chest CT FINDINGS: Lungs: Basilar airspace opacities left greater than right consistent with aspiration or pneumonia. Pleural space: No pleural effusion. No pneumothorax. Heart: Unremarkable. No cardiomegaly. IMPRESSION: Basilar airspace opacities left greater than right consistent with aspiration or pneumonia. Electronically signed by: James Gutierrez MD 03/30/24 20:40 PM Chest CTA 03/30/24 19:21 Exam(s): CTA CHEST IV Amt: 119 cc opti 320 EXAM: CT Angiography Chest With Intravenous Contrast CLINICAL HISTORY: Reason for exam: PE, hypoxia, COVID, syncope. TECHNIQUE: Axial computed tomographic angiography images of the chest with intravenous contrast. CTDI is 13 mGy and DLP is 392 mGy-cm. Automated exposure control was utilized for the study. A dose lowering technique was utilized adhering to the principles of ALARA. MIP reconstructed images were created and reviewed. COMPARISON: No relevant prior studies available. FINDINGS: Pulmonary arteries: No pulmonary embolism. Aorta: No acute findings. Normal caliber. No dissection. Lungs: Extensive mucus plugging and basilar airspace opacities left greater than right consistent with aspiration and/or pneumonia. Pleural space: Unremarkable. Heart: Unremarkable. Bones/joints: No acute fracture. Soft tissues: Unremarkable. Lymph nodes: Unremarkable. IMPRESSION: 1. No pulmonary embolism. 2. Extensive mucus plugging and basilar airspace opacities left greater than right consistent with aspiration and/or pneumonia. Electronically signed by: James Gutierrez MD 03/30/24 20:[address] 03/30/24 19:21 Exam(s): CT HEAD Without Contrast EXAM: CT Head Without Intravenous Contrast CLINICAL HISTORY: Reason for exam: syncope, hypoxia, covid, neck pain. TECHNIQUE: Axial computed tomography images of the head/brain without intravenous contrast. CTDI is 21 mGy and DLP is 661 mGy-cm. Automated exposure control was utilized for the study. A dose lowering technique was utilized adhering to the principles of ALARA. COMPARISON: No relevant prior studies available. FINDINGS: Artifacts: Images are degraded by motion artifact. Brain: No intracranial hemorrhage, mass-effect, or cerebral edema. Global parenchymal atrophy. Periventricular and subcortical low attenuation which is nonspecific but favored to represent chronic microvascular ischemic changes. Ventricles: Unremarkable. Bones/joints: Unremarkable. No fracture. Soft tissues: Unremarkable. Sinuses: No acute sinusitis. Mastoid air cells: Unremarkable as visualized. IMPRESSION: 1. No acute intracranial abnormality. Electronically signed by: James Gutierrez MD 03/30/24 20:42 PM Soft Tissue Neck CT 03/30/24 19:21 Exam(s): CT NECK With Contrast IV Amt: 119 cc opti 320 EXAM: CT Neck With Intravenous Contrast CLINICAL HISTORY: Reason for exam: R neck pain, syncope, covid. TECHNIQUE: Axial computed tomography images of the neck with intravenous contrast. CTDI is 36 mGy and DLP is 234 mGy-cm. Automated exposure control was utilized for the study. A dose lowering technique was utilized adhering to the principles of ALARA. CONTRAST: Patient received 119 cc opti 320 of IV contrast COMPARISON: No relevant prior studies available. FINDINGS: Oropharynx: Unremarkable. No significant tonsillar enlargement. No peritonsillar abscess. Hypopharynx: Unremarkable. Larynx: Unremarkable. Normal epiglottis. Trachea: Unremarkable. Retropharyngeal space: Unremarkable. Submandibular/parotid glands: Unremarkable. Glands are normal in size. Thyroid: Multinodular thyroid gland. Bones/joints: No acute osseous abnormality. Severe degenerative changes at the right sternoclavicular joint. Soft tissues: No soft tissue mass or fluid collection. Vasculature: Atherosclerotic calcifications of the left carotid bulb causing mild to moderate stenosis. Lymph nodes: Unremarkable. No lymphadenopathy. Lung apices: Unremarkable as visualized. IMPRESSION: No acute findings in the neck. Electronically signed by: James Gutierrez MD 03/30/24 20:48 PM Discharge Plan Visit Data Chief Complaint: Illness Stated Complaint: SYNCOPE, WEAKNESS, HYPOXIC, COVID+ ED Provider: Anant Quinonez Discharge Problem: Acute respiratory failure with hypoxia, COVID-19, LLL pneumonia, Syncope Patient Disposition: Being Evaluated by Hospitalist Forms Stand Alone Forms: [facility] [employer] Prescriptions Prescriptions: No Action oxycodone 5 mg tablet 5 mg PO Q4H PRN (Reason: pain) Qty: 30 0RF amoxicillin 500 mg tablet 2,000 mg PO ONCE Qty: 4 3RF Rx Instructions: 4 tabs 1 hour prior to procedure Trulicity 0.75 mg/0.5 mL pen injector 0.75 mg subcut WK Patient Comments: takes fri. Lantus Solostar U-100 Insulin 100 unit/mL (3 mL) insulin pen 16 unit subcut QAM Patient Comments: took 8units this am for bsg 157 (DME) lupis Misc See Rx Instructions .MEDSUPPLY Qty: 1 0RF Rx Instructions: As directed albuterol sulfate 90 mcg/actuation HFA aerosol inhaler 2 puff inhalation Q6H PRN (Reason: shortness of breath or wheezing) Qty: 6.7 0RF amoxicillin-pot clavulanate 875-125 mg tablet 1 tab PO BID 7 Days Qty: 14 0RF benzonatate 100 mg capsule 100 mg PO BID PRN (Reason: cough) Qty: 14 0RF (DME) Yaz Choi Missukumar See Rx Instructions .MEDSUPPLY Qty: 1 0RF Rx Instructions: As directed multivitamin Tablet 1 tab PO QAM atorvastatin [Lipitor] 40 mg Tablet 40 mg PO QAM metformin 500 mg Tablet 500 mg PO UD Patient Comments: 1 tab qam/2 tab qpm repaglinide [Prandin] 2 mg Tablet 2 mg PO ACHS clopidogrel 75 mg Tablet 75 mg PO QAM verapamil 120 mg Tablet 120 mg PO QAM cholecalciferol (vitamin D3) 2,000 unit Tablet 2,000 unit PO QAM chlorthalidone 25 mg Tablet 25 mg PO Q2D irbesartan 75 mg Tablet 75 mg PO QPM bupropion HCl 200 mg Tablet Sustained-Release 12 Hr 200 mg PO QAM cyanocobalamin (vitamin B-12) 1,000 mcg Capsule 1,000 mcg PO QAM Referrals Referrals: Leelee Spencer PA-C [Primary Care Provider] - Discharge Problem: LLL pneumonia Qualifiers: Pneumonia type: due to unspecified organism Qualified Code(s): J18.9 - Pneumonia, unspecified organism Syncope Qualifiers: Encounter type: initial encounter
[2024-03-30 19:28] LABS: Basophils # (auto) 0.01 K/uL (0.00-0.20); Basophils % (auto) 0.1 %; Eosinophils # (auto) 0.01 K/uL (0.00-0.50); Eosinophils % (auto) 0.1 %; Hematocrit (blood only) 35.1 % (37.0-47.0); Hemoglobin 11.8 g/dl (12.0-16.0); Immature Granulocytes # (auto) 0.02 K/uL (0.01-0.20); Immature Granulocytes % (auto) 0.3 %; Lymphocytes # (auto) 0.39 K/uL (1.20-3.40); Mean Corpuscular Hemoglobin 30.3 pg (25.0-34.0); Mean Corpuscular Hgb Conc 33.6 g/dL (32.0-36.0); Mean Corpuscular Volume 90.2 fL (80.0-100.0); Monocytes # (auto) 1.52 K/uL (0.11-0.59); Monocytes % (auto) 19.6 %; Neutrophils # (auto) 5.81 K/uL (1.40-6.50); Neutrophils % (auto) 74.9 %; Platelet Count 173 K/uL (130-400); RDW Coefficient of Variation 14.1 % (11.5-14.5); RDW Standard Deviation 46.9 fL (36.4-46.3); Red Blood Count 3.89 M/uL (4.20-5.40); White Blood Count 7.76 K/ul (4.8-10.8)
[2024-03-30] MEDS: SODIUM CHLORIDE 0.9% 500 ML IV ONE ×2 (19:32→20:18)
[2024-03-30 19:53] LABS: Prothrombin Time 10.8 Seconds (9.0-12.0)
[2024-03-30] MEDS: OPTIRAY 320 125ml IV ONE (19:56)
[2024-03-30 20:05] LABS: Albumin Globulin Ratio 1.3 (0.9-2); BUN Creatinine Ratio 33.3 (10-20); Bilirubin,Total 0.6 mg/dl (0.2-1.0); Calcium 9.1 mg/dl (8.6-10.3); Creatinine Clr Calc Pharmacy 48.3 ml/min; Globulin 3.1 gm/dl (2.5-4.0); Magnesium 1.5 mg/dl (1.7-2.4); Potassium 3.2 mmol/L (3.5-5.1); Thyroid Stimulating Hormone 1.143 uIu/ml (0.300-4.500); Total Protein 7.1 gm/dl (6.0-8.3); Troponin I High Sensitivity 10.6 pg/ml (0-14)
[2024-03-30 20:15] LABS: Adenovirus PCR Not Detected (NotDetected); Bordetella parapertussis PCR Not Detected (NotDetected); Bordetella pertussis PCR Not Detected (NotDetected); Chlamydia pneumoniae PCR Not Detected (NotDetected); Coronavirus 229E PCR Not Detected (NotDetected); Coronavirus CoV-2 (COVID19)PCR DETECTED (NotDetected); Coronavirus HKU1 PCR Not Detected (NotDetected); Coronavirus NL63 PCR Not Detected (NotDetected); Coronavirus OC43PCR Not Detected (NotDetected); Human Metapneumovirus PCR Not Detected (NotDetected); Influenza A PCR Not Detected (NotDetected); Influenza B PCR Not Detected (NotDetected); Mycoplasma pneumoniae PCR Not Detected (NotDetected); Parainfluenza Virus 1 PCR Not Detected (NotDetected); Parainfluenza Virus 2 PCR Not Detected (NotDetected); Parainfluenza Virus 3 PCR Not Detected (NotDetected); Parainfluenza Virus 4 PCR Not Detected (NotDetected); Respiratory Syncytial VirusPCR Not Detected (NotDetected); Rhinovirus/Enterovirus PCR Not Detected (NotDetected)
[2024-03-30] MEDS: MAGNESIUM SULFATE / D5W 1 GM/100 ML BAG IV SCH (20:21)
[2024-03-30] MEDS: ACETAMINOPHEN 500 MG TAB PO STA (20:21)
[2024-03-30] MEDS: PIPERACILLIN/TAZOBACTAM 4.5 GM/100 ML BAG IV ONE (20:21)
--- NOTE | 2024-03-30 20:41 | XRay Report ---
Exam(s): XR CXR 1 VIEW EXAM: XR Chest, 1 View CLINICAL HISTORY: Reason for exam: weakness, syncope, covid hypoxia. TECHNIQUE: Frontal view of the chest. COMPARISON: Same-day chest CT FINDINGS: Lungs: Basilar airspace opacities left greater than right consistent with aspiration or pneumonia. Pleural space: No pleural effusion. No pneumothorax. Heart: Unremarkable. No cardiomegaly. IMPRESSION: Basilar airspace opacities left greater than right consistent with aspiration or pneumonia. Electronically signed by: James Gutierrez MD 03/30/24 20:40 PM
[2024-03-30] MEDS: ACETAMINOPHEN 1,000 MG/100 ML VIAL IV STA (20:42)
--- NOTE | 2024-03-30 20:42 | CT Scan Report ---
Exam(s): CT HEAD Without Contrast EXAM: CT Head Without Intravenous Contrast CLINICAL HISTORY: Reason for exam: syncope, hypoxia, covid, neck pain. TECHNIQUE: Axial computed tomography images of the head/brain without intravenous contrast. CTDI is 21 mGy and DLP is 661 mGy-cm. Automated exposure control was utilized for the study. A dose lowering technique was utilized adhering to the principles of ALARA. COMPARISON: No relevant prior studies available. FINDINGS: Artifacts: Images are degraded by motion artifact. Brain: No intracranial hemorrhage, mass-effect, or cerebral edema. Global parenchymal atrophy. Periventricular and subcortical low attenuation which is nonspecific but favored to represent chronic microvascular ischemic changes. Ventricles: Unremarkable. Bones/joints: Unremarkable. No fracture. Soft tissues: Unremarkable. Sinuses: No acute sinusitis. Mastoid air cells: Unremarkable as visualized. IMPRESSION: 1. No acute intracranial abnormality. Electronically signed by: James Gutierrez MD 03/30/24 20:42 PM
--- NOTE | 2024-03-30 20:46 | CT Scan Report ---
Exam(s): CTA CHEST IV Amt: 119 cc opti 320 EXAM: CT Angiography Chest With Intravenous Contrast CLINICAL HISTORY: Reason for exam: PE, hypoxia, COVID, syncope. TECHNIQUE: Axial computed tomographic angiography images of the chest with intravenous contrast. CTDI is 13 mGy and DLP is 392 mGy-cm. Automated exposure control was utilized for the study. A dose lowering technique was utilized adhering to the principles of ALARA. MIP reconstructed images were created and reviewed. COMPARISON: No relevant prior studies available. FINDINGS: Pulmonary arteries: No pulmonary embolism. Aorta: No acute findings. Normal caliber. No dissection. Lungs: Extensive mucus plugging and basilar airspace opacities left greater than right consistent with aspiration and/or pneumonia. Pleural space: Unremarkable. Heart: Unremarkable. Bones/joints: No acute fracture. Soft tissues: Unremarkable. Lymph nodes: Unremarkable. IMPRESSION: 1. No pulmonary embolism. 2. Extensive mucus plugging and basilar airspace opacities left greater than right consistent with aspiration and/or pneumonia. Electronically signed by: James Gutierrez MD 03/30/24 20:45 PM
--- NOTE | 2024-03-30 20:49 | CT Scan Report ---
Exam(s): CT NECK With Contrast IV Amt: 119 cc opti 320 EXAM: CT Neck With Intravenous Contrast CLINICAL HISTORY: Reason for exam: R neck pain, syncope, covid. TECHNIQUE: Axial computed tomography images of the neck with intravenous contrast. CTDI is 36 mGy and DLP is 234 mGy-cm. Automated exposure control was utilized for the study. A dose lowering technique was utilized adhering to the principles of ALARA. CONTRAST: Patient received 119 cc opti 320 of IV contrast COMPARISON: No relevant prior studies available. FINDINGS: Oropharynx: Unremarkable. No significant tonsillar enlargement. No peritonsillar abscess. Hypopharynx: Unremarkable. Larynx: Unremarkable. Normal epiglottis. Trachea: Unremarkable. Retropharyngeal space: Unremarkable. Submandibular/parotid glands: Unremarkable. Glands are normal in size. Thyroid: Multinodular thyroid gland. Bones/joints: No acute osseous abnormality. Severe degenerative changes at the right sternoclavicular joint. Soft tissues: No soft tissue mass or fluid collection. Vasculature: Atherosclerotic calcifications of the left carotid bulb causing mild to moderate stenosis. Lymph nodes: Unremarkable. No lymphadenopathy. Lung apices: Unremarkable as visualized. IMPRESSION: No acute findings in the neck. Electronically signed by: James Gutierrez MD 03/30/24 20:48 PM
--- NOTE | 2024-03-30 21:05 | History & Physical Report ---
Date of Service March 30, 2024 Assessment & Plan (1) Acute hypoxemic respiratory failure due to COVID-19: (2) LLL pneumonia: (3) Diabetes: (4) Hypertension: (5) Hypercholesteremia: (6) Hypomagnesemia: (7) TIA (transient ischemic attack): Plan 78 yo female PMHx T2DM, TIA, HTN, HLD, bladder cancer admitted from home with respiratory distress #Acute hypoxemic respiratory failure 2/2 COVID-19/LLL pneumonia Currently on 50L High Flow NC, titrate per respiratory to maintain oxygen >/= 93% Suction PRN Continue dexamethasone 6mg daily Will start treatment with Remdesivir Continue Zosyn Add Mucinex 1200mg BID Tylenol PRN for fevers #T2DM hold home medications pharmacy glycemic consult in setting of hyperglycemia and high dose steroids Will start with Lantus 16U BID Correction factor 25, carb ratio 8 #hypomagnesemia daily CMP with mag, replete as indicated #HTN Continue chlorthalidone, irbesartan, verapamil #HLD hold statin #History of TIA continue Plavix FENGI: T2DM Code status: full DVT prophylaxis: Lovenox Isolation: COVID 19 Disposition: PCU History of Present Illness Primary Care Provider: Leelee Spencer 78 yo female PMHx T2DM, TIA, HTN, HLD, bladder cancer admitted from home with respiratory distress. Beginning 03/28/24 pt began feeling unwell with congestion and cough. That day she also had a syncopal episode in the bathroom but was able to get up. Denies head strike. 03/29/24 patient tested positive for COVID-19 at home and attempted supportive care. Today she was seen in urgent care due to increased pain in her right jaw - diagnosed with R otitis media and given script for Augmentin. Throughout the day today she became progressively more SOB and EMS was called. Testing in the ED re-confirmed diagnosis of COVID 19. At this time patient endorses heavy mucous in chest that she cannot cough up, otherwise denies dizziness, CP, abd pain, LE swelling. ED course: Chest CTA with findings of extensive mucous plugging L>R consistent with aspiration vs pneumonia Head CT due to syncopal episode without acute findings Pt placed on non-rebreather @ 15L with sats in the high 80s to low 90s Pt febrile, recieved 1g IV Tylenol Mg low, repleted Given 6mg dexamethasone 1L NSS bolus 1 dose Zosyn given in ED Allergies Allergy/AdvReac Type Severity Reaction Status Date / Time exenatide AdvReac Severe pancreatiti Verified 03/30/24 10:44 s phenol AdvReac Severe pancreatiti Verified 03/30/24 10:44 s meperidine AdvReac Mild NAUSEA Verified 03/30/24 10:44 nitrofurantoin AdvReac Mild DIARRHEA Verified 03/30/24 10:44 Home Medications Medication Instructions Recorded Confirmed Type atorvastatin 40 mg tablet (Lipitor) 40 mg PO QAM 03/25/18 03/30/24 History cholecalciferol (vitamin D3) 50 2,000 unit PO QAM 03/25/18 03/30/24 History mcg (2,000 unit) tablet clopidogrel 75 mg tablet 75 mg PO QAM 03/25/18 03/30/24 History metformin 500 mg tablet 500 mg PO UD 03/25/18 03/30/24 History multivitamin 1 tab PO QAM 03/25/18 03/30/24 History repaglinide 2 mg tablet (Prandin) 2 mg PO ACHS 03/25/18 03/30/24 History verapamil 120 mg tablet 120 mg PO QAM 03/25/18 03/30/24 History dulaglutide 0.75 mg/0.5 mL 0.75 mg subcut WK 12/12/20 03/30/24 History subcutaneous pen injector (Trulicity) insulin glargine 100 unit/mL (3 16 unit subcut QAM 12/12/20 03/30/24 History mL) subcutaneous pen (Lantus Solostar U-100 Insulin) Walking Cane #1 ea 10/22/23 03/30/24 Rx bupropion HCl 200 mg tablet,12 hr 200 mg PO QAM 11/11/23 03/30/24 History sustained-release chlorthalidone 25 mg tablet 25 mg PO Q2D 11/11/23 03/30/24 History cyanocobalamin (vitamin B-12) 1,000 mcg PO QAM 11/11/23 03/30/24 History 1,000 mcg capsule irbesartan 75 mg tablet 75 mg PO QPM 11/11/23 03/30/24 History oxycodone 5 mg tablet 5 mg PO Q4H PRN pain #30 tabs 12/29/23 03/30/24 Rx walker #1 ea 01/06/24 03/30/24 Rx amoxicillin 500 mg tablet 2,000 mg (4 x 500 mg) PO ONCE #4 03/11/24 03/30/24 Rx tabs albuterol sulfate 90 mcg/actuation 2 puff inhalation Q6H PRN 03/30/24 03/30/24 Rx aerosol inhaler shortness of breath or wheezing #6.7 grams amoxicillin 875 mg-potassium 1 tab PO BID 7 days #14 tabs 03/30/24 03/30/24 Rx clavulanate 125 mg tablet benzonatate 100 mg capsule 100 mg PO BID PRN cough #14 caps 03/30/24 03/30/24 Rx Past Med/Surg History Problem List (Updated 03/30/24 @ 21:32 by Vikram Rodriguez DO) Hypomagnesemia Acute hypoxemic respiratory failure due to COVID-19 Syncope (Acute) LLL pneumonia (Acute) COVID-19 (Acute) Acute respiratory failure with hypoxia (Acute) Status post right knee replacement (~12/2023) Osteoarthritis of right knee Midline cystocele History of bladder cancer Encounter for pre-operative examination TIA (transient ischemic attack) 01/20/17 Stroke-like symptoms 11/17/16 Chest pain (Acute) 12/10/13 Atypical chest pain (Acute 12/10/13) 12/10/13-patient states was due to stress in setting of her mother's severe illness. Hypercholesteremia (Chronic) Diabetes (Chronic) Hypertension (Chronic) Medical History Hx of pancreatitis (~2018) Post-menopausal atrophic vaginitis Postmenopausal osteoporosis Rectocele Tubular adenoma of colon (2021) Urge and stress incontinence Diabetes mellitus, type 2 Bladder cancer Depression Transient ischemic attack (TIA) Hypertension Hyperlipidemia Surgical History History of cataract surgery Status post right foot surgery History of dilatation and curettage History of total abdominal hysterectomy and bilateral salpingo-oophorectomy History of colonoscopy History of cholecystectomy History of bladder surgery History of tooth extraction History of tonsillectomy and adenoidectomy History of surgical procedure on eye proper using laser Family History Father Family hx of colon cancer Colorectal cancer Mother Breast cancer Other Hypertension Denies family history of Ovarian cancer Uterine cancer Social History Smoking Status: Never smoker Second Hand Exposure: No; Do You Dip or Chew Tobacco: No; Hx Alcohol Use: No Hx Substance Use: No Preferred Language: Peruvian Communication Ability: Effective Orthopedic Radiologic Technologist Required: No Beliefs That Will Affect Care: None marital status: / Current Living Situation: Alone current occupational status: retired Other Information That Helps Us Care for You: No Feels Safe at Home: Yes Safety Concerns: Feels Safe At This Time Assistive Devices: Glasses and Walker Review of Systems Review of Systems: reviewed, per HPI Physical Exam Physical Exam: Constitutional: appears uncomfortable, attempting to cough up mucous, not in severe distress HEENT: NCAT, no conjunctival injection CV: tachycardic, regular rhythm, no murmur appreciated, extremities well- perfused, no LE edema Resp: Crackles in b/l lungs, decreased air movement b/l GI: non-distended MSK: no gross deformities appreciated Skin: warm, dry, no rash appreciated Neuro: alert, oriented, no focal neurologic deficit appreciated Results & Data Results & Data Vital Signs (Past 12 Hours) Vital Signs Temp Pulse Pulse Resp BP Pulse Ox O2 Del Method 03/30/24 20:39 103 H 36 H 94 03/30/24 19:23 113 H 03/30/24 19:11 126 H 30 H 88 L Non-rebreather 03/30/24 19:11 126 H 88 L Non-rebreather 03/30/24 19:11 38.2 C H 126 H 30 H 135/62 78 L Room Air O2 Flow Rate FiO2 03/30/24 20:39 80 03/30/24 19:23 03/30/24 19:11 15 03/30/24 19:11 15 03/30/24 19:11 Code Status & VTE Plan VTE Prophylaxis Plan VTE Prophylaxis will be ordered: Yes Supervising Physician Co-Signing Physician Notes Attending addendum: I have physically seen this patient, have supervised the medical residents activities, and agree with the H&P unless as otherwise noted. Assessment and Plan: Acute respiratory failure with hypoxia/COVID-19 infection/secondary left lower lobe bacterial-aspiration pneumonia Dexamethasone 6 mg IV daily Remdesivir IV per protocol Zosyn 4.5 g IV every 8 hours Mucinex 12 mg p.o. twice daily Acetaminophen 650 mg by mouth every 6 hours as needed for mild pain or fever MRSA swab Start vancomycin IV if swab returns positive Albuterol HFA 2 puffs 4 times daily as needed Syncopal episode- Noted at home while family was helping her try to get up in the bathroom. She has been had decreased oral intake, during this interval time Likely a function of general weakness and weakness from infection Will need PT/OT assessment prior to discharge Diabetes mellitus- Glucose 376 on admission, and expect will worsen with steroids Glargine as noted with correction factor and carb ratio Check hemoglobin A1c Electrolyte disturbances/hypokalemia/hypomagnesemia- Potassium 3.2 and magnesium 1.5, replace as noted Hold chlorthalidone, irbesartan and verapamil for relatively low blood pressure Resident Activity Tracking Resident Involvement: Resident Care Provided Care Provided: Adult Hospital Medicine (2) LLL pneumonia Pneumonia type: due to unspecified organism Qualified Code(s): J18.9 - Pneumonia, unspecified organism
[2024-03-30] MEDS ORDERED: ALUMINUM/MAGNESIUM SUSP 30 ML UDC PO PRN (22:57)
[2024-03-30] MEDS ORDERED: GLUCOSE 10 TAB/TUBE PO PRN (22:57)
[2024-03-30] MEDS ORDERED: PHARMACY GLYCEMIC MGMT CONSULT PRN (22:57)
[2024-03-30] MEDS ORDERED: POLYETHYLENE (MIRALAX) 17 GM PACK PO PRN (22:57)
[2024-03-30] MEDS ORDERED: CARBOHYDRATES FOR HYPOGLYCEMIA PO PRN (22:57)
[2024-03-30] MEDS ORDERED: GLUCAGON FOR INJ 1 MG VIAL SQ PRN (22:57)
[2024-03-30] MEDS ORDERED: MAGNESIUM HYDROXIDE SUSP 30 ML UDC PO PRN (22:57)
[2024-03-30] MEDS ORDERED: ONDANSETRON INJ 2 MG/ML 2 ML VIAL IV PRN (22:57)
[2024-03-30] MEDS ORDERED: DEXTROSE 50% 50 ML SYRINGE IV PRN (22:57)
[2024-03-30] MEDS ORDERED: ALBUTEROL HFA 8 GM INHALER INH PRN (22:57)
[2024-03-30] MEDS ORDERED: GLUCOSE 40% GEL 15 GM TUBE PO PRN (22:57)
[2024-03-30] MEDS: INSULIN ASPART PER UNIT CHARGE SC SCH (23:25)
[2024-03-30] MEDS: LANTUS PER UNIT CHARGE SQ SCH (23:25)
[2024-03-30] MEDS: ACETAMINOPHEN 325 MG TAB PO PRN (23:46)
[2024-03-30] MEDS: LOSARTAN POTASSIUM 25 MG TAB PO SCH (23:46)
[2024-03-30] MEDS: guaiFENesin 600 MG TABCR PO SCH (23:47)
[2024-03-30] MEDS: REMDESIVIR 200 MG in SODIUM CHLORIDE 0.9% 210 ML IV STA (23:47)
[2024-03-31] MEDS: PIPERACILLIN/TAZOBACTAM 4.5 GM/100 ML BAG IV SCH (01:12)
[2024-03-31] MEDS: INSULIN ASPART PER UNIT CHARGE SC ONE (03:20)
--- NOTE | 2024-03-31 05:42 | Billing Data ---
Date of Service March 31, 2024 Coding Level of Care Code 46651 INT INP/OBS CARE
[2024-03-31] MEDS: ENOXAPARIN INJ 40 MG/0.4 ML SYR SQ SCH (06:11)
[2024-03-31 06:39] LABS: Albumin Globulin Ratio 1.2 (0.9-2); Albumin Level 3.4 gm/dl (3.4-5.0); BUN Creatinine Ratio 28.6 (10-20); Bilirubin,Total 0.4 mg/dl (0.2-1.0); Calcium 8.8 mg/dl (8.6-10.3); Creatinine Clr Calc Pharmacy 48.2 ml/min; Globulin 2.9 gm/dl (2.5-4.0); Magnesium 2.5 mg/dl (1.7-2.4); Potassium 2.9 mmol/L (3.5-5.1); Total Protein 6.3 gm/dl (6.0-8.3)
[2024-03-31 06:44] LABS: Basophils # (auto) 0.02 K/uL (0.00-0.20); Basophils % (auto) 0.1 %; Hematocrit (blood only) 33.7 % (37.0-47.0); Hemoglobin 11.4 g/dl (12.0-16.0); Immature Granulocytes # (auto) 0.29 K/uL (0.01-0.20); Lymphocytes # (auto) 1.11 K/uL (1.20-3.40); Lymphocytes % (auto) 7.5 %; Mean Corpuscular Hemoglobin 30.3 pg (25.0-34.0); Mean Corpuscular Hgb Conc 33.8 g/dL (32.0-36.0); Mean Corpuscular Volume 89.6 fL (80.0-100.0); Mean Platelet Volume 10.3 fL (9.4-12.4); Monocytes # (auto) 2.83 K/uL (0.11-0.59); Monocytes % (auto) 19.1 %; Neutrophils # (auto) 10.57 K/uL (1.40-6.50); Neutrophils % (auto) 71.3 %; Platelet Count 142 K/uL (130-400); Platelet Estimate Normal (Normal); RDW Coefficient of Variation 14.2 % (11.5-14.5); RDW Standard Deviation 46.1 fL (36.4-46.3); Red Blood Count 3.76 M/uL (4.20-5.40); White Blood Count 14.82 K/ul (4.8-10.8)
[2024-03-31 07:39] LABS: Estimated Average Glucose 203 mg/dl; Hemoglobin A1C 8.7 % (4.5-5.6)
[2024-03-31] MEDS ORDERED: VANCOMYCIN CONSULT ACTIVE PRN (08:04)
[2024-03-31] MEDS ORDERED: CHLORTHALIDONE 25 MG TAB PO SCH (09:00)
[2024-03-31] MEDS: buPROPion SR 100 MG TABCR PO SCH (09:20)
[2024-03-31] MEDS: CYANOCOBALAMIN (B-12) 500 MCG TABLET PO SCH (09:20)
[2024-03-31] MEDS: CLOPIDOGREL BISULFATE 75 MG TAB PO SCH (09:21)
[2024-03-31] MEDS: CHOLECALCIFEROL 25 MCG (1000 UNITS) TAB PO SCH (09:21)
--- NOTE | 2024-03-31 09:22 | Electrocardiogram Report ---
Test Reason : Blood Pressure : */* mmHG Vent. Rate : 123 BPM Atrial Rate : 123 BPM P-R Int : 144 ms QRS Dur : 78 ms QT Int : 296 ms P-R-T Axes : * 24 38 degrees QTcB Int : 423 ms Sinus tachycardia with occasional Premature ventricular complexes Possible Old Anterior infarct (cited on or before 10-Dec-2013) Abnormal ECG When compared with ECG of 20-Nov-2023 11:33, Premature ventricular complexes are now Present Confirmed by Duane Vigil ([id number]) on 03/31/2024 9:22:09 AM Referred By: REFERRED SELF Confirmed By: Duane Vigil
[2024-03-31] MEDS: dexAMETHasone 6 MG in SYRINGE 0 ML IV SCH (09:23)
[2024-03-31] MEDS: VANCOMYCIN HCL 1,250 MG in SODIUM CHLORIDE 0.9% 250 ML IV ONE (09:29)
[2024-03-31] MEDS: POTASSIUM CHLORIDE CRTAB 20 MEQ TABCR PO SCH (09:33)
--- NOTE | 2024-03-31 10:53 | Pharmacy Report ---
Pharmacy PK ABX Note - Date of Service March 31, 2024 - Assessment and Plan Assessment 78 year old F receiving zosyn/vancomycin for treatment of pneumonia. Pertinent microbiologic data includes: negative MRSA nasal swab. COVID +, Vancomycin started this morning for increasing oxygen requirements. Plan Vancomycin * Loading dose: 1250 mg IV x 1 * Maintenance dose: 1250 mg IV every 24 hours * Regimen is predicted to achieve target AUC/DAJA of 400-600 mg/L.hr * Random level to be ordered if continued > 48 hours Pharmacy will continue to follow and will adjust dose/frequency as necessary. Thank you. Pharmacy has transitioned to AUC monitoring for vancomycin. AUC/DAJA is the preferred PK/PD target and is associated with decreased risk of nephrotoxicity compared to traditional trough targets.
[2024-03-31] MEDS: POTASSIUM CHLORIDE 20 MEQ/15 ML UDC PO SCH (11:20)
[2024-03-31 13:35] LABS: Appearance Urine Cloudy (Clear); Bacteria Urine Automated None Seen (None Seen); Bilirubin Urine Negative (Negative); Blood Urine Negative (Negative); Cast Urine Automated 0-2 /lpf (0-2); Color Urine Yellow; Epithelial Cell Urine Auto 0-2 /hpf (0-2); Glucose Urine UA 2+ (Negative); Ketones Urine Trace (Negative); Leukocyte Esterase Urine Negative (Negative); Nitrite Urine Negative (Negative); Protein Urine 1+ (Negative); RBC Urine Automated 0-2 /hpf (0-2); Specific Gravity Urine > 1.045 (1.000-1.030); Urobilinogen Urine Negative (Negative); WBC Urine Automated 0-5 /hpf (0-5)
--- NOTE | 2024-03-31 13:59 | Pharmacy Report ---
Pharmacy Glycemic Short Note 2 - Date of Service March 31, 2024 - Glycemic Short BSG Results (Last 24 hours): 03/30/24 03/30/24 03/31/24 19:11 23:05 03:10 Glucose 376 H* POC Glucose 337 H* 267 H 03/31/24 03/31/24 03/31/24 05:25 06:57 11:19 Glucose 209 H POC Glucose 169 H 211 H OUTPATIENT ANTIDIABETIC REGIMEN: * Lantus 16 units SQ QAM * Trulicity 0.75mg SQ QWK * metformin 500mg PO AM, 1000mg PO QPM * repaglinide 2mg PO ACHS * HbA1c 8.7% (03/31/24) ASSESSMENT: * Litzy is an 78 YOF admitted with COVID-19 pneumonia and a history of type 2 diabetes mellitus. Pharmacy has been consulted to assist with glycemic management while inpatient. * BSGs above goal range upon admission also receiving IV dexamethasone 6mg for COVID-19 infection. Basal/bolus insulin initiated at a weight based stress of 3. BSGs downtrending. Consider trial of insulin NPH with dexamethasone tomorrow if BSGs still elevated. She is also receiving IV vancomycin/Zosyn for increasing oxygen requirements. PLAN FOR INPATIENT GLYCEMIC CONTROL: * Hold outpatient oral diabetes medications * Basal insulin * Lantus 16 units SQ BID * Bolus insulin * NovoLog per scale ACHS or Q6hrs while NPO * Goal Range: Low 110 mg/dL - High 140 mg/dL * Correction Factor: 25 mg/dL/unit * Nutritional / Prandial insulin per carb ratio of 1 unit per 8 grams CHO consumed
[2024-03-31] MEDS ORDERED: POTASSIUM CHLORIDE 20 MEQ/15 ML UDC PO SCH (14:00)
--- NOTE | 2024-03-31 17:07 | Hospitalist Progress Note ---
Date of Service March 31, 2024 Assessment & Plan (1) Acute hypoxemic respiratory failure due to COVID-19: (2) LLL pneumonia: (3) Diabetes: (4) Hypertension: (5) Hypercholesteremia: (6) Hypomagnesemia: (7) TIA (transient ischemic attack): Plan 78 yo female PMHx T2DM, TIA, HTN, HLD, bladder cancer admitted from home with respiratory distress #Acute hypoxemic respiratory failure 2/2 COVID-19/LLL pneumonia with sepsis present on admission initially given sepsis and fairly significant oxygen requirement/fairly severe hypoxia, while her MRSA naris was pending I added vancomycin. MRSA nares came back negativevancomycin discontinued. Given her sepsis and fairly severe hypoxiacontinue Zosyn at least for now. - Follow clinical status and culture resultsfortunately appeared stable through the day - given how focused her pneumonia is, I suspect this is more of a typical bacterial pneumonia and being sick with COVID was simply the precursor to allow for secondary bacterial overgrowth (i.e. I suspect her sepsis/hypoxia is due to typical infection not viral/atypical infectionbut rather that the viral was the precursor) - continue supportive care - while I doubt viral pneumonia, with no contraindications, utilizing remdesivir and dexamethasone at least for now given the low harm profile, and how ill she is currently with her hypoxia leaving little margin of error - abx as above should be more than sufficient for otitis - but would follow periodically during her stay #T2DM - pharmacy glycemic consult noted/appreciated - A1c 8.7 #hypomagnesemia/hypokalemia - repletedfortunately not true clinical significance at this time #HTN Continue chlorthalidone, irbesartan, verapamilblood pressure reasonable given the situation #HLD hold statin #History of TIA continue Plavix FILIPPOI: T2DM Code status: full DVT prophylaxis: Lovenox Isolation: COVID 19 Disposition: came from home; hopefully will be able to go home at discharge - however, given age/severity of illness - PT/OT eval and treat Admission and Anticipated Discharge Date Admission Date: March 30, 2024 Subjective patient seen multiple times today. Fortunately her main complaint whenever I see her in the morning is ear painand later she complains of a nonproductive cough. Does not feel significant dyspnea/shortness of breath. Family is present at the bedside and voiced no concerns either. Overall other than appearing somewhat fatigued and having a cough she appears surprisingly well for her situation. Review of Systems Review of Systems: All systems reviewed & are unremarkable except as noted in HPI & below Physical Exam Physical Exam: Both exams are nearly identicalshe is awake alert oriented fatigued but no distress. Shows no respiratory distress. Is mid to high 90s on pulse ox on the supplemental oxygen being delivered (this morning high flow nasal cannula, later in the evening mask oxygen). lungs show overall reasonably good air entry with left lower lung field rales in the morning, same in the afternoon with maybe very faint rales on the right mid lung, overall no rhonchi no wheezing good air entry no accessory muscle use no conversational dyspnea good effort. Skin shows no rashes no pallor or icterus. Neuro without focal deficits. Results & Data Results & Data Vital Signs (Past 12 Hours) Vital Signs Temp Pulse Pulse Resp BP Pulse Ox O2 Del Method 03/31/24 11:00 97.9 F 78 20 119/63 96 High Flow Nasal Cannula 03/31/24 10:21 84 18 100 High Flow Nasal Cannula 03/31/24 08:00 79 03/31/24 07:57 High Flow Nasal Cannula 03/31/24 07:36 98.8 F 84 18 101/59 L 98 High Flow Nasal Cannula 03/31/24 05:43 88 18 99 High Flow Nasal Cannula O2 Flow Rate FiO2 03/31/24 11:00 40 70 03/31/24 10:21 40 50 03/31/24 08:00 03/31/24 07:57 40 50 03/31/24 07:36 40 70 03/31/24 05:43 40 50 PG Care Time/CCT Total # of Minutes Spent Total Time Spent with Patient: Total time spent is greater than 50% in coordination of care (as documented) at patient's floor/unit and/or counseling patient: Coding Level of Care Code 88893 SUB INP/OBS CARE 3/50MIN Diagnoses Acute hypoxemic respiratory failure due to COVID-19 U07.1; J96.01 LLL pneumonia J18.9 Pneumonia type: due to unspecified organism Diabetes E11.9 Hypertension I10 Hypercholesteremia E78.00 Hypomagnesemia E83.42 TIA (transient ischemic attack) G45.9 (2) LLL pneumonia Pneumonia type: due to unspecified organism Qualified Code(s): J18.9 - Pneumonia, unspecified organism
--- NOTE | 2024-03-31 17:09 | Billing Data ---
Date of Service March 31, 2024 Coding Level of Care Code 11495 SUB INP/OBS CARE MIN
[2024-03-31] MEDS ORDERED: VANCOMYCIN HCL 1,250 MG in SODIUM CHLORIDE 0.9% 250 ML IV SCH (21:00)
[2024-03-31] MEDS: REMDESIVIR 100 MG in SODIUM CHLORIDE 0.9% 230 ML IV SCH (21:54)
[2024-04-01 08:03] LABS: BUN Creatinine Ratio 34.7 (10-20); Calcium 8.2 mg/dl (8.6-10.3); Potassium 3.7 mmol/L (3.5-5.1)
[2024-04-01 08:09] LABS: Basophils # (auto) 0.01 K/uL (0.00-0.20); Basophils % (auto) 0.1 %; Hematocrit (blood only) 29.9 % (37.0-47.0); Hemoglobin 9.9 g/dl (12.0-16.0); Immature Granulocytes # (auto) 0.07 K/uL (0.01-0.20); Immature Granulocytes % (auto) 0.5 %; Lymphocytes # (auto) 1.58 K/uL (1.20-3.40); Lymphocytes % (auto) 10.7 %; Mean Corpuscular Hemoglobin 29.9 pg (25.0-34.0); Mean Corpuscular Hgb Conc 33.1 g/dL (32.0-36.0); Mean Corpuscular Volume 90.3 fL (80.0-100.0); Mean Platelet Volume 11.1 fL (9.4-12.4); Monocytes # (auto) 2.14 K/uL (0.11-0.59); Monocytes % (auto) 14.5 %; Neutrophils # (auto) 10.93 K/uL (1.40-6.50); Neutrophils % (auto) 74.2 %; Platelet Count 161 K/uL (130-400); RDW Coefficient of Variation 14.3 % (11.5-14.5); RDW Standard Deviation 47.4 fL (36.4-46.3); Red Blood Count 3.31 M/uL (4.20-5.40); White Blood Count 14.73 K/ul (4.8-10.8)
[2024-04-01] MEDS: AZITHROMYCIN 250 MG TAB PO ONE (10:22)
[2024-04-01] MEDS: ATORVASTATIN 40 MG TAB PO SCH (10:22)
--- NOTE | 2024-04-01 11:15 | Hospitalist Progress Note ---
Date of Service April 01, 2024 Assessment & Plan (1) Acute hypoxemic respiratory failure due to COVID-19: (2) LLL pneumonia: (3) Diabetes: (4) Hypertension: (5) Hypercholesteremia: (6) Hypomagnesemia: (7) TIA (transient ischemic attack): Plan 78 yo female PMHx T2DM, TIA, HTN, HLD, bladder cancer admitted from home with COVID-19 with secondary bacterial pneumonia with acute respiratory failure with hypoxemia and respiratory distress, sepsis #Acute hypoxemic respiratory failure 2/2 COVID-19/BLL pneumonia with sepsis present on admission Presented with sepsis-fever, tachypnea, tachycardia, and chest CT with extensive mucous plugging and pneumonia left greater than right lower lobes. Procalcitonin much more elevated after admission at 38.6, blood cultures remain no growth to date. Sepsis resolved Initially requiring high flow nasal cannula 50 L-now weaned down to 2 L nasal cannula-improving Continue treatment for COVID-19 with Remdesivir, IV Decadron Continue treatment for secondary bacterial pneumonia with IV Zosyn and add on azithromycin for atypical coverage. MRSA nasal swab is negative-received 1 dose of vancomycin IV which is now discontinued Add on incentive spirometry and flutter valve Collect sputum culture if able to Continue to follow blood cultures Follow chest imaging to resolution of infiltrates as an outpatient in 4 to 6 weeks Continue supplemental O2 and wean off as able to keep pulse ox greater than 90%. May need two-step walk test prior to discharge Albuterol HFA as needed Follow CBC, CMP while on Remdesivir, follow procalcitonin in the morning to ensure decreasing and could de-escalate to Unasyn/Augmentin if improving and blood cultures remain negative #Right AOM-diagnosed with such prior to admission and started on Augmentin as outpatient-continue Zosyn for now #Coccydynia-add waffle cushion to chair #Syncope-occurred prior to arrival at home-troponin negative, ECG without ischemic changes, CT head negative. Likely related to COVID. She has had syncope with each of her COVID vaccines in the past as well. Monitoring on telemetry-no arrhythmias #T2DM Pharmacy glycemic consult noted/appreciated. Hemoglobin A1c 8.7% On Trulicity, Lantus 16 units, metformin, and Prandin at home-p.o. meds on hold, Trulicity on hold Continue Lantus 16 units twice daily, SSI as per pharmacy management while on steroids #hypomagnesemia/hypokalemia Repleted and normalized-Home chlorthalidone on hold Follow BMP, magnesium level in the morning #HTN BPs soft-continue holding home chlorthalidone, irbesartan, and verapamil #HLD No need to hold statin-resume home statin #History of TIA continue Plavix, resuming home statin Code status: full DVT prophylaxis: Lovenox Disposition: came from home; hopefully will be able to go home at discharge - however, given age/severity of illness - PT/OT eval and treat are pending. Likely discharge to home with home health in 1-2 more days. Discussed all care with son at the bedside on 04/01 Admission and Anticipated Discharge Date Admission Date: March 30, 2024 Subjective Patient feeling better, not coughing up any sputum yet. Has some pain in her tailbone she thinks from sitting in the bed and chair too much. She did not fall onto her tailbone. Denies shortness of breath. Is tired from not sleeping much. Is eating but has no taste. Had 1 loose stool today. Is weaned down to 2 L nasal cannula when I saw her Telemetry with normal sinus rhythm, PACs and rates in the 60s to 80s Physical Exam Constitutional: WD/WN, vitals as above Respiratory: normal respiratory effort; no cough Auscultation: + diminished lung sounds (At bases bilaterally); no crackles and no wheezes Cardiovascular: RRR, no murmur, no edema Psychiatric: A+Ox3, euthymic affect Results & Data Results & Data Vital Signs (Past 12 Hours) Vital Signs Temp Pulse Resp BP Pulse Ox O2 Del Method O2 Flow Rate 04/01/24 07:00 36.5 C 67 18 109/67 100 Nasal Cannula 4 04/01/24 03:39 36.8 C 70 17 104/65 96 High Flow Nasal Cannula 4.0 03/31/24 23:34 37.3 C 66 18 122/88 98 High Flow Nasal Cannula 4.0 Laboratory Results CBC, BMP, CK, LFTs, hemoglobin A1c, procalcitonin reviewed Blood cultures reviewed PG Care Time/CCT Total # of Minutes Spent Total Time Spent with Patient: Total time spent is greater than 50% in coordination of care (as documented) at patient's floor/unit and/or counseling patient: Coding Level of Care Code 50699 SUB INP/OBS CARE 2/35MIN Diagnoses Acute hypoxemic respiratory failure due to COVID-19 U07.1; J96.01 LLL pneumonia J18.9 Pneumonia type: due to unspecified organism Diabetes E11.9 Hypertension I10 Hypercholesteremia E78.00 Hypomagnesemia E83.42 TIA (transient ischemic attack) G45.9 (2) LLL pneumonia Pneumonia type: due to unspecified organism Qualified Code(s): J18.9 - Pneumonia, unspecified organism
[2024-04-01] MEDS ORDERED: SODIUM CHLORIDE 0.65% NA SOLN 45 ML (OCEAN) PRN (17:50)
[2024-04-02] MEDS: LANTUS PER UNIT CHARGE SQ SCH (09:16)
[2024-04-02 09:21] LABS: Basophils # (auto) 0.01 K/uL (0.00-0.20); Basophils % (auto) 0.1 %; Eosinophils # (auto) 0.01 K/uL (0.00-0.50); Eosinophils % (auto) 0.1 %; Hematocrit (blood only) 33.6 % (37.0-47.0); Hemoglobin 11.3 g/dl (12.0-16.0); Immature Granulocytes # (auto) 0.12 K/uL (0.01-0.20); Immature Granulocytes % (auto) 0.8 %; Lymphocytes # (auto) 3.61 K/uL (1.20-3.40); Lymphocytes % (auto) 23.1 %; Mean Corpuscular Hemoglobin 30.5 pg (25.0-34.0); Mean Corpuscular Hgb Conc 33.6 g/dL (32.0-36.0); Mean Corpuscular Volume 90.6 fL (80.0-100.0); Mean Platelet Volume 10.8 fL (9.4-12.4); Monocytes # (auto) 1.42 K/uL (0.11-0.59); Monocytes % (auto) 9.1 %; Neutrophils # (auto) 10.48 K/uL (1.40-6.50); Neutrophils % (auto) 66.8 %; Platelet Count 227 K/uL (130-400); RDW Coefficient of Variation 14.4 % (11.5-14.5); RDW Standard Deviation 47.9 fL (36.4-46.3); Red Blood Count 3.71 M/uL (4.20-5.40); White Blood Count 15.65 K/ul (4.8-10.8)
[2024-04-02] MEDS: AZITHROMYCIN 250 MG TAB PO SCH (09:22)
[2024-04-02 09:33] LABS: Albumin Globulin Ratio 1.1 (0.9-2); Albumin Level 3.5 gm/dl (3.4-5.0); BUN Creatinine Ratio 24.7 (10-20); Bilirubin,Total 0.4 mg/dl (0.2-1.0); C Reactive Protein 11.94 mg/dl (0-0.5); Calcium 8.7 mg/dl (8.6-10.3); Creatinine Clr Calc Pharmacy 55.5 ml/min; Globulin 3.1 gm/dl (2.5-4.0); Magnesium 2.4 mg/dl (1.7-2.4); Potassium 3.3 mmol/L (3.5-5.1); Total Protein 6.6 gm/dl (6.0-8.3)
[2024-04-02] MEDS: POTASSIUM CHLORIDE CRTAB 20 MEQ TABCR PO STA (10:31)
--- NOTE | 2024-04-02 12:41 | Hospitalist Progress Note ---
Date of Service April 02, 2024 Assessment & Plan (1) Acute respiratory failure with hypoxia: Plan: Resolved. Now on room air. Initial hypoxia probably due to mucous plugging. Left lower lobe bacterial pneumonia is unlikely (2) LLL pneumonia: Plan: Unlikely. Mucous plugging is probable cause of x-ray findings. Continue incentive spirometry (3) Diabetes: Plan: ADA diet. Sliding scale coverage. Basal insulin therapy (4) Hypertension: Plan: Verapamil and losartan have been restarted. (5) Hypomagnesemia: Plan: Parenteral replacement therapy has been administered. Serial labs Plan Hopeful discharge to home tomorrow, April 03 Admission and Anticipated Discharge Date Admission Date: March 30, 2024 Subjective Alert and oriented. Son is at the bedside. Current COVID variants are not causing viral pneumonia. No indication for intravenous remdesivir or dexamethasone. Both have been discontinued. CT scan reveals mucous plugging which is likely cause of her current symptoms. She is now on room air. Oral potassium supplementation has been ordered. Nursing states that she is ambulating well. Hopefully she can go home tomorrowApril 03 Review of Systems 2 Review of Systems: Constitutionalno fever or chills ENTno blurred vision, no double vision, no epistaxis, no sore throat Respiratoryoccasional nonproductive cough. No wheezing. No hemoptysis Cardiac no palpitations, no chest pain, no syncope Luna nausea, vomiting, diarrhea, melena, hematochezia GUno urinary retention, no urinary incontinence, no dysuria, no hematuria Musculoskeletalno joint pain, no muscle tenderness Skinno bruising, no rashes, no pruritus Neurono isolated weakness, no paresthesia, no weakness Psychno depression, no anxiety Physical Exam 2 Physical Exam: General-alert and oriented x3, no fever, no chills HEENT-head atraumatic and normocephalic, pupils equal and reactive to light, extraocular muscles intact Neck-no lymphadenopathy or thyromegaly, trachea midline Chest-clear to auscultation. No rales, wheezing or rhonchi Cardiac-regular rate and rhythm, normal S1 and S2 Abdomen-normal bowel sounds, no hepatosplenomegaly Extremities-no cyanosis, clubbing, or edema Neuro-cranial nerves II through XII intact, motor and sensory function within normal limits, strength symmetrical, no focal deficits Psych-normal affect, normal mood Results & Data Results & Data Vital Signs (Past 12 Hours) Vital Signs Temp Pulse Pulse Resp BP Pulse Ox O2 Del Method 04/02/24 12:13 36.7 C 71 18 125/73 96 Nasal Cannula 04/02/24 07:25 Room Air 04/02/24 07:11 68 04/02/24 07:00 37.1 C 71 18 120/71 95 Room Air 04/02/24 02:44 37.0 C 70 18 115/65 96 Room Air Laboratory Results 04/02/24 07:55 04/02/24 07:55 PG Care Time/CCT Total # of Minutes Spent Total Time Spent with Patient: Total time spent is greater than 50% in coordination of care (as documented) at patient's floor/unit and/or counseling patient: Coding Level of Care Code 97628 SUB INP/OBS CARE 3/50MIN Diagnoses Acute respiratory failure with hypoxia J96.01 LLL pneumonia J18.9 Pneumonia type: due to unspecified organism Diabetes E11.9 Hypertension I10 Hypomagnesemia E83.42 (2) LLL pneumonia Pneumonia type: due to unspecified organism Qualified Code(s): J18.9 - Pneumonia, unspecified organism
[2024-04-02 19:52] VITALS: RESP 18
[2024-04-03 08:37] LABS: Basophils # (auto) 0.02 K/uL (0.00-0.20); Basophils % (auto) 0.2 %; Eosinophils # (auto) 0.02 K/uL (0.00-0.50); Eosinophils % (auto) 0.2 %; Hemoglobin 10.6 g/dl (12.0-16.0); Immature Granulocytes % (auto) 2.9 %; Lymphocytes # (auto) 2.93 K/uL (1.20-3.40); Lymphocytes % (auto) 28.3 %; Mean Corpuscular Hemoglobin 29.8 pg (25.0-34.0); Mean Corpuscular Hgb Conc 33.1 g/dL (32.0-36.0); Mean Corpuscular Volume 89.9 fL (80.0-100.0); Mean Platelet Volume 10.5 fL (9.4-12.4); Monocytes # (auto) 0.73 K/uL (0.11-0.59); Monocytes % (auto) 7.1 %; Neutrophils # (auto) 6.35 K/uL (1.40-6.50); Neutrophils % (auto) 61.3 %; Platelet Count 230 K/uL (130-400); RDW Coefficient of Variation 14.5 % (11.5-14.5); RDW Standard Deviation 47.5 fL (36.4-46.3); Red Blood Count 3.56 M/uL (4.20-5.40); White Blood Count 10.35 K/ul (4.8-10.8)
[2024-04-03 08:53] LABS: BUN Creatinine Ratio 22.5 (10-20); Calcium 8.6 mg/dl (8.6-10.3); Potassium 3.7 mmol/L (3.5-5.1)
[2024-04-03] MEDS: VERAPAMIL HCL 120 MG TABCR PO SCH (09:12)
--- NOTE | 2024-04-03 11:20 | Discharge Summary ---
Discharge Summary Date of Service April 03, 2024 Principal Dx & Hospital Course #1 = Principal Diagnosis (1) Acute respiratory failure with hypoxia: Resolved. Now on room air. Initial hypoxia probably due to mucous plugging. Left lower lobe bacterial pneumonia is unlikely (2) LLL pneumonia: Unlikely. Mucous plugging is probable cause of x-ray findings. Treated while hospitalized with incentive spirometry (3) Diabetes: ADA diet. Sliding scale coverage. Basal insulin therapy. Resume usual diabetic management regimen at discharge (4) Hypertension: Verapamil and losartan have been restarted. (5) Hypomagnesemia: Corrected with parenteral replacement therapy. Serial labs Plan Home today with home health services, April 03 Admission HPI Per Admitting Provider 78 yo female PMHx T2DM, TIA, HTN, HLD, bladder cancer admitted from home with respiratory distress. Beginning 03/28/24 pt began feeling unwell with congestion and cough. That day she also had a syncopal episode in the bathroom but was able to get up. Denies head strike. 03/29/24 patient tested positive for COVID-19 at home and attempted supportive care. Today she was seen in urgent care due to increased pain in her right jaw - diagnosed with R otitis media and given script for Augmentin. Throughout the day today she became progressively more SOB and EMS was called. Testing in the ED re-confirmed diagnosis of COVID 19. At this time patient endorses heavy mucous in chest that she cannot cough up, otherwise denies dizziness, CP, abd pain, LE swelling. ED course: Chest CTA with findings of extensive mucous plugging L>R consistent with aspi ration vs pneumonia Head CT due to syncopal episode without acute findings Pt placed on non-rebreather @ 15L with sats in the high 80s to low 90s Pt febrile, recieved 1g IV Tylenol Mg low, repleted Given 6mg dexamethasone 1L NSS bolus 1 dose Zosyn given in ED Discharge Exam General-alert and oriented x3, no fever, no chills HEENT-head atraumatic and normocephalic, pupils equal and reactive to light, extraocular muscles intact Neck-no lymphadenopathy or thyromegaly, trachea midline Chest-clear to auscultation. No rales, wheezing or rhonchi Cardiac-regular rate and rhythm, normal S1 and S2 Abdomen-normal bowel sounds, no hepatosplenomegaly Extremities-no cyanosis, clubbing, or edema Neuro-cranial nerves II through XII intact, motor and sensory function within normal limits, strength symmetrical, no focal deficits Psych-normal affect, normal mood Discharge Plan Discharge Items Patient Disposition: Home - Home Health Services Reason For Visit: COVID-19 Discharge Diagnosis: Left lower lobe mucous plugging, transient hypoxic respiratory failure, hypokal emia, COVID positivity by nasal swab Activity: Resume your previous activity Non-emergency contact: Primary Care Provider Call non-emergency contact if: your symptoms worsen Follow-up/Referrals: Leelee Spencer PA-C [Primary Care Provider] - Diet: Carb Consistent or DM2 Addtl Attending Provider Instructions: Take vitamin D supplement daily. All other medications remain the same. Home health services have been requested Pending Studies at Discharge: No Stand-Alone Forms: My [employer], Smoking Cessation Medications and DC Order Prescriptions: Continued oxycodone 5 mg tablet 5 mg PO Q4H PRN (Reason: pain) Qty: 30 0RF amoxicillin 500 mg tablet 2,000 mg PO ONCE Qty: 4 3RF Rx Instructions: 4 tabs 1 hour prior to procedure Trulicity 0.75 mg/0.5 mL pen injector 0.75 mg subcut WK Patient Comments: takes wed. Lantus Solostar U-100 Insulin 100 unit/mL (3 mL) insulin pen 16 unit subcut QAM Patient Comments: took 8units this am for bsg 157 (DME) walker Misc See Rx Instructions .MEDSUPPLY Qty: 1 0RF Rx Instructions: As directed albuterol sulfate 90 mcg/actuation HFA aerosol inhaler 2 puff inhalation Q6H PRN (Reason: shortness of breath or wheezing) Qty: 6.7 0RF amoxicillin-pot clavulanate 875-125 mg tablet 1 tab PO BID 7 Days Qty: 14 0RF benzonatate 100 mg capsule 100 mg PO BID PRN (Reason: cough) Qty: 14 0RF (DME) Walking Cane Misc See Rx Instructions .MEDSUPPLY Qty: 1 0RF Rx Instructions: As directed multivitamin Tablet 1 tab PO QAM atorvastatin [Lipitor] 40 mg Tablet 40 mg PO QAM metformin 500 mg Tablet 500 mg PO UD Patient Comments: 1 tab qam/2 tab qpm repaglinide [Prandin] 2 mg Tablet 2 mg PO ACHS clopidogrel 75 mg Tablet 75 mg PO QAM verapamil 120 mg Tablet 120 mg PO QAM cholecalciferol (vitamin D3) 2,000 unit Tablet 2,000 unit PO QAM chlorthalidone 25 mg Tablet 25 mg PO Q2D irbesartan 75 mg Tablet 75 mg PO QPM bupropion HCl 200 mg Tablet Sustained-Release 12 Hr 200 mg PO QAM cyanocobalamin (vitamin B-12) 1,000 mcg Capsule 1,000 mcg PO QAM Discharge Orders: Discharge Order (Routine); Ordered 04/03/24 Ordered By: Jorge Alberto Ferrara Admission Data Admit Date/Time: 03/30/24 20:55 Attending Provider: Jorge Alberto Ferrara Admit Provider: Vikram Rodriguez Primary Care Provider: Leelee Spencer Other Providers: Chris Laura Hospital Stay Data Consultations 03/30/24 20:19 ED Decision to Admit Stat Diagnostic Imagining Performed 03/30/24 19:21 CT angio chest PE protocol Stat CT head/brain wo con Stat CT neck soft tissues [CT soft tissue neck w con] Stat Pending Results Patient Have Any Pending Studies at Discharge: No Discharge Instructions Given to Patient (Per Discharging Provider) Take vitamin D supplement daily. All other medications remain the same. Home health services have been requested Total Time Total Time Spent Total Time Spent (In Minutes): 45 minutes Coding Level of Care Code 31478 INP/OBS DISCH >30 MIN Diagnoses Acute respiratory failure with hypoxia J96.01 LLL pneumonia J18.9 Pneumonia type: due to unspecified organism Diabetes E11.9 Hypertension I10 Hypomagnesemia E83.42
[2024-04-03 11:30] VITALS: PULSE 73; TEMP 98.2; O2SAT 97
[2024-04-03 11:49] VITALS: BP 115/62
== END 2024-04-03 13:26 | disposition home or self-care (01) | DRG 871 ==
LOC: ED 19:04 → SUATTDRO 20:55 → 2S 20:55
DX: Z79.02 Long term (current) use of antithrombotics/antiplatelets; C67.9 Malignant neoplasm of bladder, unspecified; E83.42 Hypomagnesemia; Z79.4 Long term (current) use of insulin; J96.01 Acute respiratory failure with hypoxia; E87.6 Hypokalemia; E78.5 Hyperlipidemia, unspecified; A41.89 Other specified sepsis; U07.1 COVID-19; Z86.73 Personal history of transient ischemic attack (TIA), and cerebral infarction without residual deficits; I10 Essential (primary) hypertension; Z79.85 Long-term (current) use of injectable non-insulin antidiabetic drugs; J69.0 Pneumonitis due to inhalation of food and vomit; E11.65 Type 2 diabetes mellitus with hyperglycemia

== ENCOUNTER 2025-03-30 19:59 | Inpatient (IN) ==
--- NOTE | 2025-03-30 20:12 | Emergency Department Note ---
Impression & Plan Closed hip fracture Admission ED Provider Note HPI: History obtained from patient. The patient is a 79-year-old female who presents the emergency department with a chief complaint of right hip pain after mechanical fall. Patient states she tripped when she was walking into one of the rooms at her [facility] this evening. She states that she tripped near the doorway and fell onto her right hip/side. Patient complains of some pain in the area of the right hip on arrival. She is unable to flex at the right hip. Patient states she is not sure whether or not she hit her head. On arrival here to the ED the patient is alert, she is hemodynamically stable, she otherwise appears to be in no acute distress. ROS: - Per HPI Differential Diagnosis: Hip fracture, pelvic fracture, intracranial injury to include subdural hematoma, epidural hematoma, amongst other potential pathologies. *Outpatient medications and allergy history reviewed. PE: General: Alert, frail-appearing, no acute distress HEENT: Normocephalic, trachea midline Eyes: Extraocular eye movement is intact, no scleral erythema Pulmonary: Clear to auscultation bilaterally, no wheezing Cardio: Regular rate and rhythm GI: Abdomen is soft to palpation : No suprapubic tenderness MSK: Limited range of motion at the right hip secondary to pain, otherwise no evidence of trauma or malformation of the extremities, no edema Skin: No evidence of rash Neuro: Alert, no focal deficits Psychiatric: Cooperative INDEPENDENT INTERPRETATIONS: satellite project site monitor: (As interpreted by myself): - An order was placed for continuous cardiac monitoring - Patient was noted to be in sinus rhythm with a rate of 95 Interventions provided in ED: - IV fentanyl provided and route via EMS Medical Decision Making: IV was established and lab work obtained, patient was placed on cardiac cath lab technologist. Per my interpretation x-ray imaging does confirm the patient has a right femoral neck fracture. Per my interpretation CT imaging of the head does not show any evidence of any acute intracranial hemorrhage. Patient otherwise is alert and appears well, lab work does not show any evidence of any critical findings. I discussed the patient's presentation with the on-call orthopedic provider, Dr. Loza, he is in agreement for consultation. [facility] service was consulted for admission. I did discuss the patient's imaging findings with her and her two son's who later arrived at the bedside. They are in agreement for admission. Patient was placed for admission in stable condition. Consultants/Discussions held with other healthcare providers: - Orthopedics, Dr. Loza - Hospitalist, Dr. Laura Disposition discussion held by myself with: - Patient and patient's sons at the bedside Diagnosis: 1. Hip fracture, acute, right-sided, closed 2. Mechanical fall Disposition: Admission Loki Xiao DO Emergency Medicine Past Med/Surg History Problem List (Updated 03/30/25 @ 21:26 by Loki Xiao DO) Closed hip fracture (Acute) Acute respiratory failure with hypoxia Hypomagnesemia COVID-19 (Acute) Status post right knee replacement (~12/2023) Osteoarthritis of right knee Midline cystocele History of bladder cancer Encounter for pre-operative examination Stroke-like symptoms 11/17/16 Chest pain (Acute) 12/10/13 Atypical chest pain (Acute 12/10/13) 12/10/13-patient states was due to stress in setting of her mother's severe illness. Medical History TIA (transient ischemic attack) Hypercholesteremia Diabetes Hypertension Hx of pancreatitis (~2018) Post-menopausal atrophic vaginitis Postmenopausal osteoporosis Rectocele Tubular adenoma of colon (2021) Urge and stress incontinence Diabetes mellitus, type 2 Bladder cancer Depression Transient ischemic attack (TIA) Hypertension Hyperlipidemia Surgical History History of cataract surgery Status post right foot surgery History of dilatation and curettage History of total abdominal hysterectomy and bilateral salpingo-oophorectomy History of colonoscopy History of cholecystectomy History of bladder surgery History of tooth extraction History of tonsillectomy and adenoidectomy History of surgical procedure on eye proper using laser Family History Father Family hx of colon cancer Colorectal cancer Mother Breast cancer Other Hypertension Denies family history of Ovarian cancer Uterine cancer Social History Smoking Status: Former smoker Second Hand Exposure: No; Do You Dip or Chew Tobacco: No; Hx Alcohol Use: No Hx Substance Use: No Preferred Language: Maltese Communication Ability: Effective [place]mith Required: No Beliefs That Will Affect Care: None marital status: / Current Living Situation: Alone current occupational status: retired Feels Safe at Home: Yes Assistive Devices: Walker Allergies Allergies Allergy/AdvReac Type Severity Reaction Status Date / Time exenatide AdvReac Severe pancreatiti Verified 03/30/25 20:10 s meperidine AdvReac Severe SEVERE Verified 03/30/25 20:10 NAUSEA nitrofurantoin AdvReac Severe DIARRHEA Verified 03/30/25 20:10 phenol AdvReac Severe pancreatiti Verified 03/30/25 20:10 s Home Meds Home Medications Medication Instructions Recorded Confirmed atorvastatin 40 mg tablet (Lipitor) 40 mg PO QAM 03/25/18 03/30/25 cholecalciferol (vitamin D3) 50 2,000 unit PO QAM 03/25/18 03/30/25 mcg (2,000 unit) tablet clopidogrel 75 mg tablet 75 mg PO QAM 03/25/18 03/30/25 metformin 500 mg tablet 500 mg PO UD 03/25/18 03/30/25 verapamil 120 mg tablet 120 mg PO QAM 03/25/18 03/30/25 insulin glargine 100 unit/mL (3 16 unit subcut QAM 12/12/20 03/30/25 mL) subcutaneous pen (Lantus Solostar U-100 Insulin) bupropion HCl 200 mg tablet,12 hr 200 mg PO QAM 11/11/23 03/30/25 sustained-release chlorthalidone 25 mg tablet 25 mg PO Q OTHER DAY 11/11/23 03/30/25 irbesartan 75 mg tablet 75 mg PO HS 11/11/23 03/30/25 amoxicillin 500 mg tablet 2,000 mg PO DIRECTED PRN 1 HR 03/30/25 03/30/25 PRIOR TO DENTAL APPT. dulaglutide 1.5 mg/0.5 mL 1.5 mg subcut WK 03/30/25 03/30/25 subcutaneous [facility] repaglinide 2 mg tablet 4 mg PO QID 03/30/25 03/30/25 vitamin B complex 1 tab PO DAILY 03/30/25 03/30/25 Previous Rx's Medication Instructions Recorded Walking Cane #1 ea 10/22/23 walker #1 ea 01/06/24 albuterol sulfate 90 mcg/actuation 2 puff inhalation Q6H PRN 03/30/24 aerosol inhaler shortness of breath or wheezing #6.7 grams Results & Data (ED) Vital Signs Vital Signs - 24 hr 03/30/25 20:05 03/30/25 20:10 03/30/25 20:10 Temperature 36.8 C Temperature Source Oral Pulse Rate 97 H 97 H Pulse Rhythm Regular Pulse Strength Normal Respiratory Rate 18 Respiratory Effort / Characteristics Non-Labored Spontaneous Respiratory Depth Normal Respiratory Pattern Regular Blood Pressure 163/93 H Blood Pressure Mean 116 Blood Pressure Position Lying Pulse Oximetry 98 Oxygen Delivery Method Room Air Room Air Sepsis Recent Fever Within 48 Hours No Sepsis New/Unexplained Change in Mental Status N/A Sepsis Action Taken by Nursing No Action Required Laboratory Data 03/30/25 20:20 03/30/25 20:20 Lab Results 03/30/25 Range/Units 20:20 WBC 10.24 (4.8-10.8) K/ul RBC 3.79 L (4.20-5.40) M/uL Hgb 12.1 (12.0-16.0) g/dL Hct 34.2 L (37.0-47.0) % MCV 90.2 (80.0-100.0) fL MCH 31.9 (25.0-34.0) pg MCHC 35.4 (32.0-36.0) g/dL RDW Std Deviation 42.1 (36.4-46.3) fL RDW Coeff of Mary 12.7 (11.5-14.5) % Plt Count 192 (130-400) K/uL MPV 10.3 (9.4-12.4) fL Immature Gran % (Auto) 0.8 % Neut % (Auto) 68.7 % Lymph % (Auto) 18.0 % Jack % (Auto) 11.6 % Eos % (Auto) 0.6 % Baso % (Auto) 0.3 % Neut # (Auto) 7.04 H (1.40-6.50) K/uL Lymph # (Auto) 1.84 (1.20-3.40) K/uL Jack # (Auto) 1.19 H (0.11-0.59) K/uL Eos # (Auto) 0.06 (0.00-0.50) K/uL Baso # (Auto) 0.03 (0.00-0.20) K/uL Immature Gran # (Auto) 0.08 (0.01-0.20) K/uL PT 10.6 (9.0-12.0) Seconds INR 1.0 (0.9-1.1) APTT 25 (21-31) Seconds PTT Ratio 0.9 Sodium 137 (136-145) mmol/L Potassium 3.6 (3.5-5.1) mmol/L Chloride 103 (98-107) mmol/L Carbon Dioxide 21 (21-32) mmol/L Anion Gap 13 H (3-11) BUN 24 H (6-23) mg/dl Creatinine 0.81 (0.6-1.2) mg/dl Est Cr Clr Drug Dosing 50.0 ml/min eGFR 72.88 BUN/Creatinine Ratio 29.6 H (10-20) Glucose 174 H (70-99(Fasting)) mg/dl Calcium 10.1 (8.6-10.3) mg/dl Total Bilirubin 0.4 (0.2-1.0) mg/dl AST 18 (13-39) U/L ALT 18 (7-52) U/L Alkaline Phosphatase 65 (34-104) U/L Total Protein 6.4 (6.0-8.3) gm/dl Albumin 3.9 (3.4-5.0) gm/dl Globulin 2.5 (2.5-4.0) gm/dl Albumin/Globulin Ratio 1.6 (0.9-2) Lipase 39 (11-82) U/L Administered Medications Discontinued Medications Sodium Chloride (Nss) 500 mls @ 999 mls/hr IV .Q31M [facility] Stop: 03/30/25 20:45 Last Admin: 03/30/25 21:06 Dose: 999 mls/hr Documented By: ELSYW Discharge Plan Visit Data Chief Complaint: Fall Stated Complaint: GLF, R Hip Pain ED Provider: Loki Xiao Discharge Problem: Closed hip fracture Patient Disposition: Admitted As Inpatient Condition: Fair Forms Stand Alone Forms: My [facility] [employer] Prescriptions Prescriptions: No Action Lantus Solostar U-100 Insulin 100 unit/mL (3 mL) insulin pen 16 unit subcut QAM Patient Comments: took 8units this am for bsg 157 (DME) lupis Marshallc See Rx Instructions .MEDSUPPLY Qty: 1 0RF Rx Instructions: As directed albuterol sulfate 90 mcg/actuation HFA aerosol inhaler 2 puff inhalation Q6H PRN (Reason: shortness of breath or wheezing) Qty: 6.7 0RF (DME) Walking Cane Misc See Rx Instructions .MEDSUPPLY Qty: 1 0RF Rx Instructions: As directed atorvastatin [Lipitor] 40 mg Tablet 40 mg PO QAM metformin 500 mg Tablet 500 mg PO UD Rx Instructions: TAKES 500 MG QAM, THEN 1,000 MG QDD. clopidogrel 75 mg Tablet 75 mg PO QAM Rx Instructions: PT UNSURE IF STILL TAKING, UNABLE TO VERIFY. verapamil 120 mg Tablet 120 mg PO QAM cholecalciferol (vitamin D3) 2,000 unit Tablet 2,000 unit PO QAM chlorthalidone 25 mg Tablet 25 mg PO Q OTHER DAY irbesartan 75 mg Tablet 75 mg PO HS bupropion HCl 200 mg Tablet Sustained-Release 12 Hr 200 mg PO QAM repaglinide [Prandin] 2 mg Tablet 4 mg PO QID Rx Instructions: administer within 30 minutes of a meal or snack vitamin B complex [B Complex-Vitamin B12] Tablet 1 tab PO DAILY Trulicity 1.5 mg/0.5 mL Pen Injector 1.5 mg SUBCUT WK Rx Instructions: [place] amoxicillin 500 mg tablet 2,000 mg PO DIRECTED PRN (Reason: 1 HR PRIOR TO DENTAL APPT.) Rx Instructions: 4 tabs 1 hour prior to procedure Referrals Referrals: Leelee Spencer PA-C [Primary Care Provider] - Discharge Problem: Closed hip fracture Qualifiers: Encounter type: initial encounter Laterality: right Qualified Code(s): S72.001A - Fracture of unspecified part of neck of right femur, initial encounter for closed fracture
[2025-03-30 21:01] LABS: Alanine Aminotransferase 18.0 U/L (7-52); Albumin Globulin Ratio 1.6 (0.9-2); Albumin Level 3.9 gm/dl (3.4-5.0); Alkaline Phosphatase 65.0 U/L (34-104); Anion Gap 13.0 (3-11); Bilirubin,Total 0.4 mg/dl (0.2-1.0); Blood Urea Nitrogen 24.0 mg/dl (6-23); Calcium 10.1 mg/dl (8.6-10.3); Carbon Dioxide 21.0 mmol/L (21-32); Chloride 103.0 mmol/L (98-107); Creatinine Clr Calc Pharmacy 50.0 ml/min; Globulin 2.5 gm/dl (2.5-4.0); Glucose 174.0 mg/dl (70-99(Fasting)); Lipase 39.0 U/L (11-82); Potassium 3.6 mmol/L (3.5-5.1); Sodium 137.0 mmol/L (136-145); Total Protein 6.4 gm/dl (6.0-8.3)
[2025-03-30 21:06] LABS: Hematocrit (blood only) 34.2 % (37.0-47.0); Hemoglobin 12.1 g/dL (12.0-16.0); Immature Granulocytes # (auto) 0.08 K/uL (0.01-0.20); Immature Granulocytes % (auto) 0.8 %; Mean Corpuscular Hemoglobin 31.9 pg (25.0-34.0); Mean Corpuscular Volume 90.2 fL (80.0-100.0); Platelet Count 192 K/uL (130-400); RDW Standard Deviation 42.1 fL (36.4-46.3); Red Blood Count 3.79 M/uL (4.20-5.40); White Blood Count 10.24 K/ul (4.8-10.8)
[2025-03-30] MEDS: SODIUM CHLORIDE 0.9% 500 ML IV SCH (21:06)
[2025-03-30 21:11] LABS: INR 1.0 (0.9-1.1); Partial Thromboplastin Time 25 Seconds (21-31); Prothrombin Time 10.6 Seconds (9.0-12.0)
--- NOTE | 2025-03-30 21:16 | History & Physical Report ---
Date of Service March 30, 2025 Assessment & Plan (1) Closed hip fracture: (2) Ground-level fall: (3) Hypertension: (4) Diabetes mellitus, type 2: (5) TIA (transient ischemic attack): Plan Patient is an 79-year-old female with a past medical history of TIA, HLD, type II DM on insulin, HTN, bladder cancer s/p Tx 1998. Patient presented via EMS after a ground-level mechanical fall in which she tripped walking in the doorway at [employer] onto her right side resulting in a right closed hip fracture. Patient is being admitted to undergo surgical management in the a.m. 03/31/2025, she is hemodynamically stable at time of admission. #right hip fx - S/p GLF. Hemodynamically and neurovascularly intact at time of admission.Hip XR with displaced subcapital right femoral neck fracture. Head CT negative. - orthopedics consulted - planning for surgical management 03/31/25 - n.p.o. after midnight, IVF ordered - external catheter ordered - Type and screen ordered - preop EKG and CXR ordered - Revised cardiac risks index 3 - IV Tylenol prn, Dilaudid 0.25/0.5 mg IV prn for breakthrough pain - lidoderm patch - Zofran as needed - Incentive spirometry - PT/OT consulted - repeat labs in AM #TIAhold Plavix, continue statin. #HTNcontinue verapamil and irbesartan. Hold chlorthalidone. #Type II DM - most recent A1C 8.7%. hold Prandin and metformin Reduce home glargine from 16U nightly to 8U every morning SSI ordered #Mental healthcontinue bupropion VTE ppx: SCDs Dispo: med surg Admission and Anticipated Discharge Date Admission Date: 03/30/25 History of Present Illness Chief Complaint: fall Primary Care Provider: Leelee Spencer Patient is an 79-year-old female with a past medical history of TIA, HLD, type II DM on insulin, HTN, bladder cancer s/p Tx 1998. Patient presented via EMS after a ground-level mechanical fall in which she tripped walking in the doorway at [employer] onto her right side resulting in a right closed hip fracture. Patient is being admitted to undergo surgical management in the a.m. 03/31/2025, she is hemodynamically stable at time of admission. Patient seen at bedside with her 2 sons present. She stated she tripped on the doorway when walking into [employer] this evening. She fell onto her right side resulting in immediate right hip pain. She is unsure if she hit her head however feels as though her head hit against her purse/the purse often to her blow. She does have right ring finger bruising and swelling, denies any pain. She stated her pain is currently 7/10 at bedside and her hip, has only received 50 mcg of fentanyl and route via EMS. She denies any loss of consciousness. She ambulates without assistance at baseline, did use a cane after a knee replacement in September 2023. She stated her last meal was around 0 which consisted of a sloppy Mike in a bun. She is due for her evening medications, ordered. Updated patient that she will likely undergo surgical management in the morning with orthopedic surgery, patient agreeable. She denies nicotine or alcohol use. She wishes to be full code. She denies any dizziness, lightheadedness, chest pain, shortness of breath, spinal pain, numbness, tingling. Note the patient is unsure if she is still on Plavix. Stated she did take all of her morning medications which would include Plavix on 03/30 if she is still on it. She is not on any anticoagulation. Confirmed through outside medical records that patient did last refilled plavix less than 1 month ago. Allergies Allergy/AdvReac Type Severity Reaction Status Date / Time exenatide AdvReac Severe pancreatiti Verified 03/30/25 20:10 s meperidine AdvReac Severe SEVERE Verified 03/30/25 20:10 NAUSEA nitrofurantoin AdvReac Severe DIARRHEA Verified 03/30/25 20:10 phenol AdvReac Severe pancreatiti Verified 03/30/25 20:10 s Home Medications Medication Instructions Recorded Confirmed Type atorvastatin 40 mg tablet (Lipitor) 40 mg PO QAM 03/25/18 03/30/25 History cholecalciferol (vitamin D3) 50 2,000 unit PO QAM 03/25/18 03/30/25 History mcg (2,000 unit) tablet clopidogrel 75 mg tablet 75 mg PO QAM 03/25/18 03/30/25 History metformin 500 mg tablet 500 mg PO UD 03/25/18 03/30/25 History verapamil 120 mg tablet 120 mg PO QAM 03/25/18 03/30/25 History insulin glargine 100 unit/mL (3 16 unit subcut QAM 12/12/20 03/30/25 History mL) subcutaneous pen (Lantus Solostar U-100 Insulin) Walking Cane #1 ea 10/22/23 12/21/24 Rx bupropion HCl 200 mg tablet,12 hr 200 mg PO QAM 11/11/23 03/30/25 History sustained-release chlorthalidone 25 mg tablet 25 mg PO Q OTHER DAY 11/11/23 03/30/25 History irbesartan 75 mg tablet 75 mg PO HS 11/11/23 03/30/25 History walker #1 ea 01/06/24 12/21/24 Rx albuterol sulfate 90 mcg/actuation 2 puff inhalation Q6H PRN 03/30/24 03/30/25 Rx aerosol inhaler shortness of breath or wheezing #6.7 grams amoxicillin 500 mg tablet 2,000 mg PO DIRECTED PRN 1 HR 03/30/25 03/30/25 History PRIOR TO DENTAL APPT. dulaglutide 1.5 mg/0.5 mL 1.5 mg subcut WK 03/30/25 03/30/25 History subcutaneous pen injector (Trulicity) repaglinide 2 mg tablet 4 mg PO QID 03/30/25 03/30/25 History vitamin B complex 1 tab PO DAILY 03/30/25 03/30/25 History Past Med/Surg History Problem List (Updated 04/01/25 @ 10:15 by Jayesh Brooks PA-C) Status post hemiarthroplasty of right hip Fracture of femoral neck, right TIA (transient ischemic attack) 01/20/17 Diabetes mellitus, type 2 NIDDM Hypertension Ground-level fall Acute respiratory failure with hypoxia Hypomagnesemia COVID-19 (Acute) Status post right knee replacement (~12/2023) Osteoarthritis of right knee Midline cystocele History of bladder cancer Encounter for pre-operative examination Stroke-like symptoms 11/17/16 Chest pain (Acute) 12/10/13 Atypical chest pain (Acute 12/10/13) 12/10/13-patient states was due to stress in setting of her mother's severe illness. Medical History (Updated 04/01/25 @ 10:15 by Jayesh Brooks PA-C) Hypercholesteremia Diabetes Hx of pancreatitis (~2018) due to medication no current issue Post-menopausal atrophic vaginitis Postmenopausal osteoporosis Rectocele monitoring Tubular adenoma of colon (2021) polyp removed Urge and stress incontinence Bladder cancer 1998--sx Depression Transient ischemic attack (TIA) was questionable in 12/2016---reason for plavix Hypertension controlled, stable per pt Hyperlipidemia Surgical History (Updated 04/03/25 @ 09:13 by Aram Soriano PA-C) History of cataract surgery right/left Status post right foot surgery right great toe History of dilatation and curettage History of total abdominal hysterectomy and bilateral salpingo-oophorectomy History of colonoscopy History of cholecystectomy History of bladder surgery remove malignant bladder tumor History of tooth extraction wisdom teeth History of tonsillectomy and adenoidectomy History of surgical procedure on eye proper using laser left eye, tear of retina Family History Father Family hx of colon cancer Colorectal cancer Mother Breast cancer Other Hypertension Denies family history of Ovarian cancer Uterine cancer Social History Smoking Status: Former smoker Second Hand Exposure: No; Do You Dip or Chew Tobacco: No; Hx Alcohol Use: No Hx Substance Use: No Preferred Language: Gabonese Communication Ability: 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 Non-toxic appearing. HEENT- EOMI, mucous membranes moist. Hearing grossly intact. Heart-normal S1 and S2. No murmurs, rubs or gallops. Lungs-clear bilaterally, no respiratory distress, no accessory muscle use. Abdomen-normal bowel sounds and soft. No ascites noted. Non-tender. Extremities- no clubbing, cyanosis, or edema. right LE neurovascularly intact. Rheumatologic-normal range of motion. Psychiatric-normal affect. Results & Data Results & Data Vital Signs (Past 12 Hours) Vital Signs Temp Pulse Resp BP Pulse Ox O2 Del Method 03/30/25 20:10 Room Air 03/30/25 20:10 36.8 C 97 H 18 163/93 H 98 Room Air 03/30/25 20:05 97 H Laboratory Results Reviewed CBC, CMP, type and screen, PT/INR Diagnostic Findings reviewed head CT and pelvis XR; all pending at time of admission Ordered CXR preoperatively Medications Administered EMS50 mcg fentanyl ED500 mL NSS bolus AdmissionTylenol 1G IV, Dilaudid 0.25 mg IV, Lidoderm patch ECG Additional Comments: ordered Code Status & VTE Plan Code Status full code VTE Prophylaxis Plan VTE Prophylaxis will be ordered: Yes Supervising Physician Co-Signing Physician Notes Attending addendum: I have physically seen this patient, have supervised the CARLOTTA's activities, and agree with the H&P unless as otherwise noted. Assessment and Plan: The patient is an 79-year-old female past medical history including TIA, hyperlipidemia, diabetes mellitus type 2 on insulin, hypertension, bladder cancer status post treatment in 1998. She presents to the emergency department via EMS after ground-level mechanical fall when she tripped over walking in to the doorway [facility] onto her right side, resulting in immediate right hip pain, inability bear weight, and x-ray showing a closed right hip fracture. Closed right hip fracture- Status post ground-level fall N.p.o. after midnight IV fluids as ordered Martins catheter Type and screen ordered Preop EKG and chest x-ray ordered Geriatric hip fracture protocol order set Acetaminophen 1 g IV every 8 hours as needed for mild pain or fever Dilaudid 0.25 mg IV every 3 hours as needed for moderate pain Dilaudid 0.5 mg IV every 3 hours needed for severe pain Narcan IV per protocol Lidoderm patch Zofran 4 mg IV every 6 hours as needed Repeat laboratories in the a.m. TIA/hypertension- Hold Plavix Continue verapamil Hold irbesartan and chlorthalidone Diabetes mellitus- Hold Prandin and metformin Place on Accu-Cheks with NovoLog SSI Remaining orders and notations as noted PG Care Time/CCT Total # of Minutes Spent Total Time Spent with Patient: Total time spent is greater than 50% in coordination of care (as documented) at patient's floor/unit and/or counseling patient: Coding Level of Care Code 08751 INT INP/OBS CARE 3/75MIN Diagnoses Closed hip fracture S72.001A Encounter type: initial encounter Laterality: right Ground-level fall W18.30XA Hypertension I10 Diabetes mellitus, type 2 E11.9 TIA (transient ischemic attack) G45.9 (1) Closed hip fracture Encounter type: initial encounter Laterality: right Qualified Code(s): S72.001A - Fracture of unspecified part of neck of right femur, initial encounter for closed fracture
--- NOTE | 2025-03-30 22:05 | CT Scan Report ---
Exam(s): CT HEAD Without Contrast EXAM: CT Head Without Intravenous Contrast CLINICAL HISTORY: Reason for exam: fall. TECHNIQUE: Axial computed tomography images of the head/brain without intravenous contrast. CTDI is 36 mGy and DLP is 624 mGy-cm. Automated exposure control was utilized for the study. A dose lowering technique was utilized adhering to the principles of ALARA. COMPARISON: 03/30/2024 FINDINGS: Brain: Age-related parenchymal volume loss. Regions of white matter hypoattenuation, most likely mild chronic small vessel ischemic change. Lim-white matter differentiation maintained. No parenchymal edema. No acute intracranial hemorrhage or abnormal extra-axial collection. No mass effect of midline shift. Ventricles: No hydrocephalus. Bones/joints: No acute fracture. Soft tissues: Unremarkable. Vasculature: Intracranial atherosclerosis. Sinuses: Unremarkable as visualized. Mastoid air cells: No significant mastoid effusion. Orbits: Lens replacements. IMPRESSION: No acute intracranial process. Electronically signed by: Rhett Buchanan M.D. 03/30/25 22:04 PM
--- NOTE | 2025-03-30 22:10 | XRay Report ---
Exam(s): XR PELVIS, 1-2 views EXAM: XR Pelvis, 1 or 2 Views CLINICAL HISTORY: Reason for exam: Fall, R hip pain. TECHNIQUE: Frontal view of the pelvis. COMPARISON: No relevant prior studies available. FINDINGS: Bones/joints: Displaced subcapital right femoral neck fracture. No dislocation. Lumbar spondylosis. Soft tissues: Unremarkable. IMPRESSION: Displaced subcapital right femoral neck fracture. Electronically signed by: Rhett Buchanan M.D. 03/30/25 22:09 PM
[2025-03-30] MEDS: MoRPHine SULFATE 2 MG/ML CARP IV STA (22:15)
--- NOTE | 2025-03-30 22:33 | XRay Report ---
Exam(s): XR CXR 1 VIEW EXAM: XR Chest, 1 View CLINICAL HISTORY: Reason for exam: fall, pre-op. TECHNIQUE: Frontal view of the chest. COMPARISON: 05/04/2024 FINDINGS: Lungs: No consolidation. Pleural space: No significant pleural effusion. No pneumothorax. Heart: No cardiomegaly or pulmonary vascular congestion. Bones/joints: No acute fracture. No dislocation. IMPRESSION: No evidence of acute cardiopulmonary disease. Electronically signed by: Rhett Buchanan M.D. 03/30/25 22:32 PM
[2025-03-30] MEDS: LIDOCAINE 5% 1 PATCH TD STA (22:35)
[2025-03-30] MEDS: ACETAMINOPHEN 1,000 MG/100 ML VIAL IV STA (22:35)
[2025-03-30] MEDS: HYDROmorphone INJ 0.5 MG/0.5 ML SYR IV STA (22:35)
[2025-03-30] MEDS ORDERED: CARBOHYDRATES FOR HYPOGLYCEMIA PO PRN (23:01)
[2025-03-30] MEDS ORDERED: MAGNESIUM HYDROXIDE SUSP 30 ML UDC PO PRN (23:01)
[2025-03-30] MEDS ORDERED: DEXTROSE 50% 50 ML SYRINGE IV PRN (23:01)
[2025-03-30] MEDS ORDERED: NALOXONE HCL 0.4 MG/1 ML VIAL/CARP IV PRN (23:01)
[2025-03-30] MEDS ORDERED: GLUCOSE 10 TAB/TUBE PO PRN (23:01)
[2025-03-30] MEDS ORDERED: GLUCOSE 40% GEL 15 GM TUBE PO PRN (23:01)
[2025-03-30] MEDS ORDERED: POLYETHYLENE (MIRALAX) 17 GM PACK PO PRN (23:01)
[2025-03-30] MEDS ORDERED: GLUCAGON FOR INJ 1 MG VIAL SQ PRN (23:01)
[2025-03-30] MEDS ORDERED: ALBUTEROL HFA 8 GM INHALER INH PRN (23:01)
[2025-03-30] MEDS ORDERED: ONDANSETRON INJ 2 MG/ML 2 ML VIAL IV PRN (23:01)
[2025-03-30] MEDS ORDERED: ACETAMINOPHEN 325 MG TAB PO PRN (23:01)
[2025-03-30] MEDS ORDERED: ACETAMINOPHEN 1,000 MG/100 ML VIAL IV PRN (23:01)
[2025-03-30] MEDS: LACTATED RINGER'S 1,000 ML IV SCH (23:54)
[2025-03-31] MEDS: LOSARTAN POTASSIUM 25 MG TAB PO SCH (00:28)
[2025-03-31] MEDS: LACTATED RINGER'S 500 ML IV ONE (02:50)
[2025-03-31] MEDS: DEXTROSE 50% 50 ML SYRINGE IV ONE (05:45)
[2025-03-31 06:22] LABS: Hematocrit (blood only) 31.5 % (37.0-47.0); Hemoglobin 10.7 g/dL (12.0-16.0); Mean Corpuscular Hemoglobin 30.8 pg (25.0-34.0); Mean Corpuscular Volume 90.8 fL (80.0-100.0); Platelet Count 162 K/uL (130-400); RDW Standard Deviation 43.3 fL (36.4-46.3); Red Blood Count 3.47 M/uL (4.20-5.40); White Blood Count 9.97 K/ul (4.8-10.8)
[2025-03-31] MEDS: HYDROmorphone INJ 0.5 MG/0.5 ML SYR IV PRN (06:24)
[2025-03-31 06:40] LABS: Anion Gap 8.0 (3-11); Blood Urea Nitrogen 19.0 mg/dl (6-23); Calcium 8.8 mg/dl (8.6-10.3); Carbon Dioxide 25.0 mmol/L (21-32); Chloride 104.0 mmol/L (98-107); Creatinine Clr Calc Pharmacy 63.7 ml/min; Glucose 161.0 mg/dl (70-99(Fasting)); Potassium 3.2 mmol/L (3.5-5.1); Sodium 137.0 mmol/L (136-145)
--- NOTE | 2025-03-31 07:00 | Orthopedic Consultation ---
Date of Service March 31, 2025 Assessment & Plan (1) Closed hip fracture: 79-year-old female with multiple medical comorbidities including hypertension, TIA, diabetes status post a mechanical fall with displaced femoral neck fracture. Plan: I discussed treatment options with the patient today. Clearly the best treatment is a cemented bipolar hip arthroplasty. The risks and bents this procedure explained. Informed consent was obtained. We can proceed along that course today. She is on Plavix so will likely need a general anesthetic. Will plan on continue Plavix for DVT prophylaxis along with SCDs and teds. She has been medically optimized. Plan on surgery later this morning. (2) Ground-level fall: (3) Hypertension: (4) Diabetes mellitus, type 2: (5) TIA (transient ischemic attack): (6) Status post right knee replacement: History of Present Illness Reason for Consultation: . Right hip fracture Requesting Physician: . Attending Physician: Isaiah Martinez MD . The patient is a 79-year-old fairly active female with a history of diabetes, hypertension, elevated cholesterol, TIA who sustained mechanical fall last evening while attending [facility]. No pre-existing hip pain. She fell on her right hip. Acute onset of pain was unable to ambulate. She was brought to emergency room where x-rays show displaced femoral neck fracture. She has been admitted by the medicine service and we are consulted. No pre-existing hip pain. Did recently have her knee replaced by Dr. Blair and has done reasonably well from that. No other injuries. No head injury no neck pain. Allergies Allergy/AdvReac Type Severity Reaction Status Date / Time exenatide AdvReac Severe pancreatiti Verified 03/30/25 20:10 s meperidine AdvReac Severe SEVERE Verified 03/30/25 20:10 NAUSEA nitrofurantoin AdvReac Severe DIARRHEA Verified 03/30/25 20:10 phenol AdvReac Severe pancreatiti Verified 03/30/25 20:10 s Home Medications Medication Instructions Recorded Confirmed Type atorvastatin 40 mg tablet (Lipitor) 40 mg PO QAM 03/25/18 03/30/25 History cholecalciferol (vitamin D3) 50 2,000 unit PO QAM 03/25/18 03/30/25 History mcg (2,000 unit) tablet clopidogrel 75 mg tablet 75 mg PO QAM 03/25/18 03/30/25 History metformin 500 mg tablet 500 mg PO UD 03/25/18 03/30/25 History verapamil 120 mg tablet 120 mg PO QAM 03/25/18 03/30/25 History insulin glargine 100 unit/mL (3 16 unit subcut QAM 12/12/20 03/30/25 History mL) subcutaneous pen (Lantus Solostar U-100 Insulin) Walking Cane #1 ea 10/22/23 12/21/24 Rx bupropion HCl 200 mg tablet,12 hr 200 mg PO QAM 11/11/23 03/30/25 History sustained-release chlorthalidone 25 mg tablet 25 mg PO Q OTHER DAY 11/11/23 03/30/25 History irbesartan 75 mg tablet 75 mg PO HS 11/11/23 03/30/25 History walker #1 ea 01/06/24 12/21/24 Rx albuterol sulfate 90 mcg/actuation 2 puff inhalation Q6H PRN 03/30/24 03/30/25 Rx aerosol inhaler shortness of breath or wheezing #6.7 grams amoxicillin 500 mg tablet 2,000 mg PO DIRECTED PRN 1 HR 03/30/25 03/30/25 History PRIOR TO DENTAL APPT. dulaglutide 1.5 mg/0.5 mL 1.5 mg subcut WK 03/30/25 03/30/25 History subcutaneous pen injector (Trulicity) repaglinide 2 mg tablet 4 mg PO QID 03/30/25 03/30/25 History vitamin B complex 1 tab PO DAILY 03/30/25 03/30/25 History Past Med/Surg History Problem List TIA (transient ischemic attack) 01/20/17 Diabetes mellitus, type 2 NIDDM Hypertension Ground-level fall Closed hip fracture (Acute) Acute respiratory failure with hypoxia Hypomagnesemia COVID-19 (Acute) Status post right knee replacement (~12/2023) Osteoarthritis of right knee Midline cystocele History of bladder cancer Encounter for pre-operative examination Stroke-like symptoms 11/17/16 Chest pain (Acute) 12/10/13 Atypical chest pain (Acute 12/10/13) 12/10/13-patient states was due to stress in setting of her mother's severe illness. Medical History Hypercholesteremia Diabetes Hx of pancreatitis (~2018) due to medication no current issue Post-menopausal atrophic vaginitis Postmenopausal osteoporosis Rectocele monitoring Tubular adenoma of colon (2021) polyp removed Urge and stress incontinence Bladder cancer 1998--sx Depression Transient ischemic attack (TIA) was questionable in 12/2016---reason for plavix Hypertension controlled, stable per pt Hyperlipidemia Surgical History History of cataract surgery right/left Status post right foot surgery right great toe History of dilatation and curettage History of total abdominal hysterectomy and bilateral salpingo-oophorectomy History of colonoscopy History of cholecystectomy History of bladder surgery remove malignant bladder tumor History of tooth extraction wisdom teeth History of tonsillectomy and adenoidectomy History of surgical procedure on eye proper using laser left eye, tear of retina Family History Father Family hx of colon cancer Colorectal cancer Mother Breast cancer Other Hypertension Denies family history of Ovarian cancer Uterine cancer Social History Smoking Status: Former smoker Second Hand Exposure: No; Do You Dip or Chew Tobacco: No; Hx Alcohol Use: No Hx Substance Use: No Preferred Language: Kinyarwanda Communication Ability: Effective Oxyacetylene Burner Required: No Beliefs That Will Affect Care: None marital status: / Current Living Situation: Alone current occupational status: retired Feels Safe at Home: Yes Assistive Devices: None Review of Systems All systems reviewed & are unremarkable except as noted in HPI & below. Physical Exam . Physical examination was a pleasant thin healthy-appearing female. She is lying in bed looks moderately uncomfortable. Examination of the right hip and leg reveals slightly shortened and externally rotated leg. She has got a well-h ealed knee incision. There is no bruising or significant swelling. She got marked pain with any type of hip motion. She is otherwise neurovascularly intact. Results & Data Results & Data Laboratory Results . Diagnostic Findings . X-rays of the hip were reviewed. Shows a displaced femoral neck fracture. No significant signs of underlying arthritis. Bone density and bone structure looks pretty well-preserved. PG Care Time/CCT Total # of Minutes Spent Total Time Spent with Patient: Total time spent is greater than 50% in coordination of care (as documented) at patient's floor/unit and/or counseling patient: Coding Level of Care Code 55941 IN/OBS CONSULT LVL 5,80M Diagnoses Closed hip fracture S72.001A Encounter type: initial encounter Laterality: right Ground-level fall W18.30XA Hypertension I10 Diabetes mellitus, type 2 E11.9 TIA (transient ischemic attack) G45.9 Status post right knee replacement Z96.651 (1) Closed hip fracture Encounter type: initial encounter Laterality: right Qualified Code(s): S72.001A - Fracture of unspecified part of neck of right femur, initial encounter for closed fracture
--- NOTE | 2025-03-31 07:01 | Anesthesiology Consultation ---
Date of Service March 31, 2025 Assessment & Plan Chart Review Chart Review: Acceptable Risk for Surgery and Patient NOT seen in Pre Admission Testing Consults Requested none ASA ASA4 Proposed Anesthesia Anesthesia Type: General History Surgery Operation Date: 03/31/25 08:00 Proposed Procedures p Bipolar Hip Prosthesis - Pernell Loza MD Height/Weight Height: 5 ft 3 in Weight: 65.4 kg Allergies Allergy/AdvReac Type Severity Reaction Status Date / Time exenatide AdvReac Severe pancreatiti Verified 03/30/25 20:10 s meperidine AdvReac Severe SEVERE Verified 03/30/25 20:10 NAUSEA nitrofurantoin AdvReac Severe DIARRHEA Verified 03/30/25 20:10 phenol AdvReac Severe pancreatiti Verified 03/30/25 20:10 s Medications Home Medications Medication Instructions Recorded Confirmed Last Taken atorvastatin 40 mg tablet (Lipitor) 40 mg PO QAM 03/25/18 03/30/25 03/30/25 cholecalciferol (vitamin D3) 50 2,000 unit PO QAM 03/25/18 03/30/25 03/30/25 mcg (2,000 unit) tablet clopidogrel 75 mg tablet 75 mg PO QAM 03/25/18 03/30/25 12/11/23 metformin 500 mg tablet 500 mg PO UD 03/25/18 03/30/25 03/30/25 verapamil 120 mg tablet 120 mg PO QAM 03/25/18 03/30/25 03/30/25 insulin glargine 100 unit/mL (3 16 unit subcut QAM 12/12/20 03/30/25 03/30/25 mL) subcutaneous pen (Lantus Solostar U-100 Insulin) Walking Cane #1 ea 10/22/23 12/21/24 Unknown bupropion HCl 200 mg tablet,12 hr 200 mg PO QAM 11/11/23 03/30/25 03/30/25 sustained-release chlorthalidone 25 mg tablet 25 mg PO Q OTHER DAY 11/11/23 03/30/25 03/30/25 irbesartan 75 mg tablet 75 mg PO HS 11/11/23 03/30/25 03/29/25 walker #1 ea 01/06/24 12/21/24 Unknown albuterol sulfate 90 mcg/actuation 2 puff inhalation Q6H PRN 03/30/24 03/30/25 Unknown aerosol inhaler shortness of breath or wheezing #6.7 grams amoxicillin 500 mg tablet 2,000 mg PO DIRECTED PRN 1 HR 03/30/25 03/30/25 Unknown PRIOR TO DENTAL APPT. dulaglutide 1.5 mg/0.5 mL 1.5 mg subcut WK 03/30/25 03/30/25 03/30/25 subcutaneous pen injector (Trulicity) repaglinide 2 mg tablet 4 mg PO QID 03/30/25 03/30/25 03/30/25 18:00 vitamin B complex 1 tab PO DAILY 03/30/25 03/30/25 03/30/25 Active Medications Generic Name Dose Route Start Last Admin Trade Name Freq PRN Reason Stop Dose Admin Hydromorphone HCl 0.25 mg 03/30/25 23:01 03/31/25 06:24 Hydromorphone Inj 0.5 Mg/0.5 Ml Syr IV 04/13/25 23:00 0.25 mg Q6H PRN Administration Moderate Pain (Scale 4, 5, 6) Lactated Ringer's 1,000 mls @ 80 mls/hr 03/30/25 23:01 03/30/25 23:54 Lr IV 03/31/25 11:30 80 mls/hr .[id number] LESLIE Administration Losartan Potassium 25 mg 03/30/25 23:15 03/31/25 00:28 Losartan Potassium 25 Mg Tab PO 04/29/25 23:14 25 mg HS LESLIE Administration Past Medical History Medical History Hypercholesteremia Diabetes Hx of pancreatitis (~2018) due to medication no current issue Post-menopausal atrophic vaginitis Postmenopausal osteoporosis Rectocele monitoring Tubular adenoma of colon (2021) polyp removed Urge and stress incontinence Bladder cancer 1998--sx Depression Transient ischemic attack (TIA) was questionable in 12/2016---reason for plavix Hypertension controlled, stable per pt Hyperlipidemia ASCVD Ao Exercise / Class Metabolic Activity III < 4 Walking/Shop/Light housework Past Family History Family History Father Family hx of colon cancer Colorectal cancer Mother Breast cancer Other Hypertension Denies family history of Ovarian cancer Uterine cancer Past Surgical History Surgical History History of cataract surgery right/left Status post right foot surgery right great toe History of dilatation and curettage History of total abdominal hysterectomy and bilateral salpingo-oophorectomy History of colonoscopy History of cholecystectomy History of bladder surgery remove malignant bladder tumor History of tooth extraction wisdom teeth History of tonsillectomy and adenoidectomy History of surgical procedure on eye proper using laser left eye, tear of retina Past Anesthesia History No Hx of Anesthesia Complications and No Family Hx of Anesthesia Complications History of PONV No Hx of PONV and No Hx of Motion Sickness Social History Smoking Status: Former smoker Do You Dip or Chew Tobacco: No Hx Alcohol Use: No Hx Substance Use: No substance use type: does not use Physical Exam Vital Signs Last Vital Signs Temp 36.9 C 03/31/25 02:12 Pulse 91 H 03/31/25 04:29 Resp 16 03/31/25 04:29 BP 120/64 03/31/25 04:29 Pulse Ox 94 03/31/25 04:29 O2 Del Method Room Air 03/31/25 04:29 Testing Laboratory Results 03/31/25 05:57 03/31/25 05:57 PT 10.6 Seconds (9.0-12.0) 03/30/25 20:20 INR 1.0 (0.9-1.1) 03/30/25 20:20 APTT 25 Seconds (21-31) 03/30/25 20:20 Blood Type A Positive 03/30/25 20:45 Antibody Screen NEGATIVE 03/30/25 20:45 03/31/25 03/31/25 03/31/25 06:01 06:00 05:21 POC Glucose 155 H 166 H 77 03/30/25 23:02 POC Glucose 126 H Electrocardiogram Date: 03/31/25 Findings: + NSR @ (@ 80 w/ 1st degree AVB;low voltage QRS;? septal infarct age,?) Chest X-Ray Date: 03/30/25 Findings: + NAD
[2025-03-31] MEDS ORDERED: SODIUM CHLORIDE 0.9% 100 ML IV PRN (07:03)
[2025-03-31] MEDS ORDERED: ATROPINE SULFATE 0.1 MG/ML 10ML SYR IV PRN (07:26)
[2025-03-31] MEDS ORDERED: FLUMAZENIL 0.1 MG/1 ML 10 ML VIAL IV PRN (07:26)
[2025-03-31] MEDS ORDERED: ONDANSETRON INJ 2 MG/ML 2 ML VIAL IV PRN (07:26)
[2025-03-31] MEDS ORDERED: NALOXONE HCL 0.4 MG/1 ML VIAL/CARP IV PRN (07:26)
[2025-03-31] MEDS ORDERED: ALBUMIN HUMAN 5% 12.5 GM/250 ML VIAL IV ONE (07:41)
[2025-03-31] MEDS ORDERED: MIDAZOLAM HCL 1 MG/ML 2ML VIAL ONE (07:44)
[2025-03-31] MEDS ORDERED: PROPOFOL IV EMULSION 10 MG/ML 20 ML VIAL IV ONE (07:45)
[2025-03-31] MEDS ORDERED: ETOMIDATE 2 MG/ML 20 ML VIAL IV ONE (07:46)
[2025-03-31] MEDS ORDERED: SUCCINYLCHOLINE CHLORIDE 20 MG/ML 10 ML VIAL IV ONE (07:47)
[2025-03-31] MEDS ORDERED: CISATRACURIUM BESYLATE IV SOLN 2 MG/ML 10 ML VIAL IV ONE (07:48)
--- NOTE | 2025-03-31 08:15 | Hospitalist Progress Note ---
Date of Service March 31, 2025 Assessment & Plan (1) Closed hip fracture: (2) Ground-level fall: (3) Hypertension: (4) Diabetes mellitus, type 2: (5) TIA (transient ischemic attack): Plan Patient is an 79-year-old female with a past medical history of TIA, HLD, type II DM on insulin, HTN, bladder cancer s/p Tx 1998. Patient presented via EMS after a ground-level mechanical fall in which she tripped walking in the doorway at [employer] onto her right side resulting in a right closed hip fracture. Patient is being admitted to undergo surgical management in the a.m. 03/31/2025, she is hemodynamically stable at time of admission. #Right hip fx - S/p GLF. Hemodynamically and neurovascularly intact at time of admission. Hip XR with displaced subcapital right femoral neck fracture Revised cardiac risk index: 3 Orthopedics consult appreciated Underwent a right bipolar cemented hip arthroplasty with Dr. Loza on 03/31 Per review of operative report, EBL was listed as 100 cc, general anesthesia was used, and there were no reported intraoperative complications Postop right hip x-ray consistent with expected postoperative findings following right hip arthroplasty IV Tylenol prn, Dilaudid 0.25/0.5 mg IV prn for breakthrough pain Lidoderm patch Zofran as needed Incentive spirometry PT/OT consults appreciated #TIA Hold Plavix prior to procedure, with plan to restart on 04/01 Continue statin #HTN Continue verapamil and irbesartan. Hold chlorthalidone. #Type II DM - most recent A1C 8.7%. Hold Prandin and metformin Reduce home glargine from 16U nightly to 8U every morning SSI ordered Adjust regimen as needed #Mental health Continue bupropion #Hypokalemia Mild; potassium 3.2 K rider 10 mEq x 3 Trend BMP #Hypomagnesemia Mild; magnesium 1.6 Magnesium sulfate 1 g IV x 2 #Anemia Hgb trend 12.1 -> 10.7 on the morning of operation Close monitoring in the setting of right hip fracture Trend H&H VTE ppx: SCDs, teds; will plan to restart Plavix on the morning of 04/01 Dispo: Continued stay on [facility]; suspect patient will need acute rehab upon discharge Admission and Anticipated Discharge Date Admission Date: March 30, 2025 Supervising Physician Co-Signing Physician Notes I did not see or examine the patient. I verified all huffman points and agree with Jonny Torres PA-C with the following exceptions and/or additions: None Subjective Mrs. Huizar reports she is doing well postoperatively. She reports that, so long as she does not move her right leg, her pain is only a 2 out of 10. The pain is mainly confined to her right thigh/hip. No radiation. However, she has not attempted to move it much following the procedure. Patient was feeling quite nauseous following the procedure and vomited in the PACU. However, she does not feel nauseous at this time; no abdominal pain. She does mention that her throat is sore and dry. Overall, she is doing well, and is looking forward to lunch. ROS: Patient endorses right thigh/hip pain with movements, sore throat, nausea, and vomiting. Patient denies fever, headache, difficulty swallowing, chest pain, chest palpitations, SOB, cough, abdominal pain, or numbness or tingling going down the right leg. Review of Systems Review of Systems: See HPI above Physical Exam Physical Exam: General: no acute distress; sitting upright in bed having lunch; 2 sons at bedside; non-toxic appearing; cooperative; frail-appearing; SpO2 98% on RA HEENT: normocephalic, atraumatic; PERRLA; vision and hearing intact Neck: supple; trachea midline Skin: warm, dry without signs of tenting; no cyanosis; no rashes, bruising, lesions, or erythema noted CV: chest wall NTP; RRR, mildly tachycardic around 100 to 105 bpm; S1/S2 normal; no murmurs/rubs/gallops; pulses intact and symmetric at radial, DP, and PT Lungs: no acute respiratory distress; symmetrical chest wall expansion; clear breath sounds across all lung levine w/o adventitious sounds; no wheezing ABD: Soft, NTP; BS present; no rebound/guarding; no distention MSK: no tics or fasciculations; no edema noted in the LEs b/l, nonerythematous Right hip/thigh: NTP; surgical dressing in place without signs of acute drainage, erythema, or infection LEs: Patient demonstrates ability to wiggle toes bilaterally; 5/5 plantarflexion bilaterally; 4/5 dorsiflexion bilaterally at the ankle; 1/5 strength when attempting to lift right leg off the bed lying supine Neuro: A&Ox3; normal mood and affect; fluent speech; patient reports sensation is intact and symmetric in the feet bilaterally assessed via light touch; neurovascular intact at PT and DP pulses Results & Data Results & Data Vital Signs (Past 12 Hours) Vital Signs Temp Pulse Pulse Resp BP BP BP 03/31/25 04:29 91 H 16 120/64 03/31/25 02:21 96/58 L 03/31/25 02:12 36.9 C 80 16 95/53 L 03/30/25 23:10 36.8 C 92 H 16 154/80 H 03/30/25 22:29 03/30/25 22:00 94 H 15 152/86 H 03/30/25 21:30 97 H 20 151/83 H 03/30/25 21:00 96 H 14 152/77 H 03/30/25 20:30 96 H 15 142/85 H Pulse Ox O2 Del Method 03/31/25 04:29 94 Room Air 03/31/25 02:21 03/31/25 02:12 96 Room Air 03/30/25 23:10 98 Room Air 03/30/25 22:29 Room Air 03/30/25 22:00 98 03/30/25 21:30 99 03/30/25 21:00 98 03/30/25 20:30 97 PG Care Time/CCT Total # of Minutes Spent Total Time Spent with Patient: Total time spent is greater than 50% in coordination of care (as documented) at patient's floor/unit and/or counseling patient: Coding [place] [address] SUB INP/OBS CARE 2/35MIN Patient Type Established Medical Decision Making Moderate Complexity Diagnoses Closed hip fracture S72.001A Encounter type: initial encounter Laterality: right Ground-level fall W18.30XA Hypertension I10 Diabetes mellitus, type 2 E11.9 TIA (transient ischemic attack) G45.9 (1) Closed hip fracture Encounter type: initial encounter Laterality: right Qualified Code(s): S72.001A - Fracture of unspecified part of neck of right femur, initial encounter for closed fracture
[2025-03-31] MEDS: TRANEXAMIC ACID / 0.7% NACL 1000MG/100ML BAG IV ONE ×2 (08:25→09:47)
[2025-03-31] MEDS: TRANEXAMIC ACID / 0.7% NACL 1,000 MG/100 ML BAG IV SCH (08:25)
[2025-03-31] MEDS: BUPIVACAINE/EPINEPHRINE 0.5% MPF 1:200,000 30 ML VIAL ONE (08:59)
[2025-03-31] MEDS ORDERED: GLYCOPYRROLATE 0.2 MG/ML VIAL ONE (09:13)
[2025-03-31] MEDS ORDERED: NEOSTIGMINE METHYLSULFATE 1 MG/ML 10ML VIAL ONE (09:13)
[2025-03-31] MEDS ORDERED: PHENYLEPHRINE 100MCG/ML 5ML SYR ONE (09:24)
--- NOTE | 2025-03-31 10:15 | Electrocardiogram Report ---
Test Reason : Blood Pressure : */* mmHG Vent. Rate : 82 BPM Atrial Rate : 82 BPM P-R Int : 240 ms QRS Dur : 64 ms QT Int : 378 ms P-R-T Axes : 77 43 25 degrees QTcB Int : 441 ms Sinus rhythm with 1st degree A-V block Low voltage QRS Septal infarct (cited on or before 10-Dec-2013) Abnormal ECG When compared with ECG of 30-Mar-2024 19:11, Premature ventricular complexes are no longer Present VT interval has increased Vent. rate has decreased by 41 bpm Questionable change in initial forces of Anteroseptal leads Non-specific change in ST segment in Inferior leads Confirmed by Hung Frances ([id number]) on 03/31/2025 10:15:18 AM Referred By: REFERRED SELF Confirmed By: Hung Frances
[2025-03-31] MEDS ORDERED: ONDANSETRON INJ 2 MG/ML 2 ML VIAL ONE (10:16)
--- NOTE | 2025-03-31 10:31 | Operative Report ---
PG Post Operative Report Pre & Post Diagnosis Operation Date: 03/31/25 08:00 Pre-Op Diagnosis: Right displaced femoral neck fracture Post-Op Diagnosis: Right displaced femoral neck fracture I identified the patient and participated in the time-out.: Yes Procedure Operation Date: 03/31/25 08:00 Actual Procedures p Right bipolar cemented hip Replacement for Fracture(Right) - Pernell Loza MD Surgeon Pernell Loza MD [employer] Michelle Son Estimated Blood Loss 100 Findings Consistent with Post-Op Diagnosis Specimens Right femoral head sent for pathology. Anesthesia Type General Complications none Disposition Accompanied Patient To Recovery: No Indications Patient is an 79-year-old female who sustained a mechanical fall last evening while trying to attend [employer]. She had acute onset of pain and could not ambula te. She was brought to emergency room where x-rays revealed a right displaced femoral neck fracture. She was admitted by the hospitalist service, medically optimized, indicated for surgical repair. Description of Procedure Operative implants consist of: 2 1 DePuy [place] size 3 high offset cemented femoral stem with a 11 mm centralizer. 2. +5/28 mm ceramic articular ball with a 46 mm bipolar shell and liner. 3. Small cement restrictor. The patient was taken to the op room, identified, placed on the operating table in the supine position. All contact areas were appropriately padded. IV antibiotics were provided by anesthesia team. A general anesthetic was implemented as this patient is on Plavix. A Martins catheter was then placed in a sterile fashion. The patient reviewed placed in the left lateral decubitus position. An axillary roll was placed. A stool Birkett position was used for positioning. The right hip and leg were then scrubbed with Hibiclens, prepped with ChloraPrep, and draped in the usual sterile fashion. A posterior lateral approach to the right hip was then performed through a curvilinear incision centered over the greater trochanteric. Sharp dissection was got through subcutaneous tissue down of the IT band gluteal fascia. The IT band gluteal fascia incised longitudinally in line with skin incision. The piriformis and external rotators were then taken off the posterior aspect of the hip in a very careful fashion. The capsule was preserved. I then made a T-type incision in the posterior capsule and the tagging 2 limb of the capsule. The hip was internally rotated. A femoral neck osteotomy cut was then made about a centimeter above the lesser trochanter. Femoral neck remaining portion along with the femoral head was then removed. We then trialed the hip acetabulum and a 46 mm shell fit most appropriately. Attention drawn block to the femur. The proximal femur was entered with cookie-cutter followed by canal finder and lateralizing reamer. Then broached beginning a size 1 progressing to a 2. I had a little trouble even get the 2 down. We trialed the hip in the +5 articular ball with a high offset stem seemed to provide appropriate soft tissue tension, excellent stability, and equal leg lengths. I elected place these implants. All trial implants were removed. I irrigated extensively. A small cement restrictor was placed down the canal and fit quite tightly. A double batch [place] G cement was mixed. We then injected the cement in the canal and a size 3 high offset cemented femoral stem was placed with a centralizer. Of note trial of the initial stem down to make sure fit in the a centralizer did come off so we just left it there. All extraneous cement was removed. Once the cement hardened a +5/28 mm ceramic articular ball with a 46 mm bipolar shell and liner was placed. Hip was located once again found to be stable. Attention jointer closing. I injected locally with 30 cc of half percent Marcaine with epinephrine. I irrigated extensively. The posterior capsule was then repaired with #2 Tycron suture in a [id number] fashion. The IT band gluteal fascia then closed in 1 PDS suture in running fashion. Subcutaneous tissue then closed in 2 layers the deep layer #1 Vicryl suture subcutaneous tissues with 2-0 Dexon suture in a buried interrupted fashion. Skin was then closed with skin sydni. Leg was then cleaned and dried and a sterile dressing composed of Xeroform, 4 fours, ABD pad and Medipore tape was applied. Upon extubating the patient, she had several bouts of emesis and then several extreme bouts of loose stools. As a result we had to clean her bed several times and change her bare icing twice as a guide soiled somewhat with the stool. None of the stool got up around the incision site but we had to change the dressing on 2 separate occasions. She was then transferred to the recovery room in stable condition. Patient tolerated procedure well and there were no complications. Michelle Son, my physician therapy administrative assistant, was present for the entire procedure. Her assistance was required for proper patient positioning, prepping and draping, surgical exposure, retraction, performed the technical details of the operation, placement of the implants, closure of the incision site, placement of postoperative sterile bandage. I attest to the content of the Intraoperative Record and any orders documented therein. Any exceptions are noted below.
--- NOTE | 2025-03-31 11:42 | XRay Report ---
EXAM: Radiographs of the Right Hip 3 Views INDICATION: Replacement. Postop check. TECHNIQUE: AP and crosstable lateral views obtained. COMPARISON: No relevant prior studies available. FINDINGS: Limitations: None. Bones/joints: Satisfactory appearance of cemented hip arthroplasty components. No fracture, loosening or dislocation. Soft tissues: Expected postoperative gas and swelling in the operative bed. IMPRESSION: Satisfactory appearance of right hip arthroplasty. ACT 112: N/A Electronically signed by Naida Valderrama 03-31-2025 11:41 AM
[2025-03-31] MEDS: INSULIN ASPART PER UNIT CHARGE SC SCH (12:08)
[2025-03-31] MEDS: POTASSIUM CHLORIDE / WTR 10 MEQ/100 ML PLCT IV SCH (12:13)
[2025-03-31] MEDS: MAGNESIUM SULFATE / D5W 1 GM/100 ML BAG IV SCH (12:15)
[2025-03-31] MEDS: LANTUS PER UNIT CHARGE SQ SCH (12:15)
--- NOTE | 2025-03-31 12:51 | Anesthesiology Progress Note ---
Date of Service March 31, 2025 Anesthesia Post Procedure Vital Signs Vital Signs: Temp Pulse Pulse Pulse Resp BP BP 03/31/25 12:44 03/31/25 12:40 36.8 C 104 H 17 03/31/25 12:00 36.9 C 105 H 15 03/31/25 11:30 108 H 18 135/68 03/31/25 11:20 36.8 C 106 H 23 139/54 L 03/31/25 11:10 105 H 18 159/65 H 03/31/25 11:00 107 H 20 159/96 H 03/31/25 10:50 107 H 20 172/74 H 03/31/25 10:40 105 H 19 137/66 03/31/25 10:30 108 H 18 174/85 H 03/31/25 10:21 36.7 C 112 H 18 178/76 H 03/31/25 04:29 91 H 16 120/64 03/31/25 02:21 96/58 L 03/31/25 02:12 36.9 C 80 16 03/30/25 23:10 36.8 C 92 H 16 03/30/25 22:29 03/30/25 22:00 94 H 15 152/86 H 03/30/25 21:30 97 H 20 151/83 H 03/30/25 21:00 96 H 14 152/77 H 03/30/25 20:30 96 H 15 142/85 H 03/30/25 20:10 03/30/25 20:10 36.8 C 97 H 18 163/93 H 03/30/25 20:05 97 H 03/30/25 20:03 163/93 H BP Pulse Ox O2 Del Method O2 Flow Rate 03/31/25 12:44 Nasal Cannula 2 03/31/25 12:40 118/69 97 Nasal Cannula 2 03/31/25 12:00 116/62 94 Nasal Cannula 2 03/31/25 11:30 94 Nasal Cannula 2 03/31/25 11:20 95 Nasal Cannula 2 03/31/25 11:10 93 Oxymask 2 03/31/25 11:00 99 Oxymask 4 03/31/25 10:50 99 Oxymask 5 03/31/25 10:40 99 Oxymask 7 03/31/25 10:30 99 Oxymask 9 03/31/25 10:21 100 Oxymask 9 03/31/25 04:29 94 Room Air 03/31/25 02:21 03/31/25 02:12 95/53 L 96 Room Air 03/30/25 23:10 154/80 H 98 Room Air 03/30/25 22:29 Room Air 03/30/25 22:00 98 03/30/25 21:30 99 03/30/25 21:00 98 03/30/25 20:30 97 03/30/25 20:10 Room Air 03/30/25 20:10 98 Room Air 03/30/25 20:05 03/30/25 20:03 Pain Intensity Right Upper Leg: Pain Intensity: 6 Transfer of Care Handoff Completed per policy Notes Mental Status: alert / awake / arousable Patient Amnestic to Procedure: Yes Nausea / Vomiting: adequately controlled Pain: adequately controlled Airway Patency, RR, SpO2: stable & adequate BP & HR: stable & adequate Hydration State: stable & adequate Anesthetic Complications: no major complications apparent
[2025-03-31] MEDS: VERAPAMIL HCL 120 MG TABCR PO SCH (12:57)
[2025-03-31] MEDS: DOCUSATE SODIUM 100 MG CAP PO PRN (12:58)
[2025-03-31] MEDS: ATORVASTATIN 40 MG TAB PO SCH (12:58)
[2025-03-31] MEDS: HYDROmorphone INJ 1 MG/ML SYRINGE IV PRN (15:41)
[2025-03-31] MEDS ORDERED: ACETAMINOPHEN 325 MG TAB PO PRN ×2 (15:42→15:44)
[2025-03-31] MEDS: MoRPHine SULFATE 2 MG/ML CARP IV PRN (20:11)
[2025-03-31] MEDS: ACETAMINOPHEN 325 MG TAB PO SCH (21:45)
[2025-03-31] MEDS: REMOVE LIDODERM PATCH SCH (21:54)
[2025-04-01 06:46] LABS: Hematocrit (blood only) 28.7 % (37.0-47.0); Hemoglobin 9.9 g/dL (12.0-16.0); Mean Corpuscular Hemoglobin 31.7 pg (25.0-34.0); Mean Corpuscular Volume 92.0 fL (80.0-100.0); Platelet Count 149 K/uL (130-400); RDW Standard Deviation 44.0 fL (36.4-46.3); Red Blood Count 3.12 M/uL (4.20-5.40); White Blood Count 14.25 K/ul (4.8-10.8)
[2025-04-01 07:04] LABS: Anion Gap 5.0 (3-11); Blood Urea Nitrogen 10.0 mg/dl (6-23); Calcium 8.1 mg/dl (8.6-10.3); Carbon Dioxide 27.0 mmol/L (21-32); Chloride 98.0 mmol/L (98-107); Creatinine Clr Calc Pharmacy 69.2 ml/min; Glucose 182.0 mg/dl (70-99(Fasting)); Potassium 3.7 mmol/L (3.5-5.1); Sodium 130.0 mmol/L (136-145)
[2025-04-01 07:24] LABS: Immature Granulocytes # (auto) 0.06 K/uL (0.01-0.20); Immature Granulocytes % (auto) 0.4 %; Polychromasia 1+
[2025-04-01] MEDS ORDERED: CLOPIDOGREL BISULFATE 75 MG TAB PO SCH (09:00)
[2025-04-01] MEDS: CLOPIDOGREL BISULFATE 75 MG TAB PO SCH (09:07)
--- NOTE | 2025-04-01 10:14 | Orthopedic Progress Note ---
Date of Service April 01, 2025 Assessment & Plan (1) Fracture of femoral neck, right: * Continue Current Treatment * S/p right hip hemiarthroplasty * Weight bearing status: WBAT, hip recautions * Daily treatment: Physical Therapy/ Occupational Therapy per protocol * Pain control * Continue to monitor for ABLA * DVT prophylaxis, ok to resume from ortho standpoint * Disposition: TBD * Office/hospital f/u 2 weeks for progress check and staple/suture removal * Remainder care per primary team Subjective . Active Problems: S/p right hip hemiarthroplasty POD 1 79 y/o female s/p right hip hemiarthroplasty. Doing well overall, pain managed and improved function. Denies fever/chills, chest pain/SOB, nausea/vomiting. Otherwise no complaints. Review of Systems All systems reviewed & are unremarkable except as noted in HPI & below. Physical Exam * General: Alert and oriented, no acute distress * Constitutional: well-developed, well-nourished. * Respiratory: Normal respiratory effort, no distress * Gastrointestinal: No tenderness to palpation, no rigidity or guarding. * Skin: No rash or lesion. * Neurologic: Grossly normal * Musculoskeletal: Right hip surgical dressing CDI, not removed for exam. Otherwise no obvious deformity or overlying skin changes. Diffuse TTP proximal thigh and hip region. Otherwise no specific tenderness of distal thigh, lower leg, foot/ankle. AROM hip flexion intact. AROM foot/ankle intact. Sensation intact plantar/dorsal foot. Brisk capillary refill. Results & Data Results & Data Laboratory Results . Diagnostic Findings . Hip X-Ray 03/31/25 10:24 EXAM: Radiographs of the Right Hip 3 Views INDICATION: Replacement. Postop check. TECHNIQUE: AP and crosstable lateral views obtained. COMPARISON: No relevant prior studies available. FINDINGS: Limitations: None. Bones/joints: Satisfactory appearance of cemented hip arthroplasty components. No fracture, loosening or dislocation. Soft tissues: Expected postoperative gas and swelling in the operative bed. IMPRESSION: Satisfactory appearance of right hip arthroplasty. ACT 112: N/A Electronically signed by Naida Valderrama 03-31-2025 11:41 AM PG Care Time/CCT Total # of Minutes Spent Total Time Spent with Patient: Total time spent is greater than 50% in coordination of care (as documented) at patient's floor/unit and/or counseling patient: Coding Level of Care Code 57889 Post Operative Follow-Up Diagnoses Fracture of femoral neck, right S72.001A
[2025-04-01 10:56] LABS: Prealbumin 13.2 mg/dl (20-40)
--- NOTE | 2025-04-01 15:08 | Hospitalist Progress Note ---
Date of Service April 01, 2025 Assessment & Plan (1) Closed hip fracture: (2) Ground-level fall: (3) Hypertension: (4) Diabetes mellitus, type 2: (5) TIA (transient ischemic attack): Plan Patient is an 79-year-old female with a past medical history of TIA, HLD, type II DM on insulin, HTN, bladder cancer s/p Tx 1998. Patient presented via EMS after a ground-level mechanical fall in which she tripped walking in the doorway at [employer] onto her right side resulting in a right closed hip fracture. Patient is being admitted to undergo surgical management in the a.m. 03/31/2025, she is hemodynamically stable at time of admission. #Right hip fx - S/p ground level fall, hemodynamically and neurovascularly intact at time of admission. Hip XR with displaced subcapital right femoral neck fracture Revised cardiac risk index: 3 Orthopedics consulted s/p right bipolar cemented hip arthroplasty with Dr. Loza on 03/31 EBL 100 cc, general anesthesia, no reported intraoperative complications Postop right hip x-ray consistent with expected postoperative findings following right hip arthroplasty IV Tylenol prn, Dilaudid 0.25/0.5 mg IV prn for breakthrough pain Lidoderm patch Zofran as needed Incentive spirometry PT/OT consults appreciated #TIA restarted Plavix 04/01 this am Continue statin #HTN Continue verapamil and irbesartan Hold chlorthalidone #Type II DM - most recent A1C 8.7%. Hold Prandin and metformin Reduce home glargine from 16U nightly to 8U every morning SSI ordered Adjust regimen as needed #Mental health Continue bupropion #Anemia Hgb trend 12.1/10.7/9.9 Close monitoring in the setting of right hip fracture Trend H&H VTE ppx: SCDs, teds, add Lovenox SQ Dispo: Continued stay on MedSurg; suspect patient will need acute rehab upon discharge Admission and Anticipated Discharge Date Admission Date: March 30, 2025 Subjective Litzy states her pain is tolerable with medication regimen. More reproducible pain when ambulating with PT today--PT recommending rehab. Referrals for [facility]. Appetite is good. Has no moved bowels since arrival. Review of Systems Review of Systems: All systems reviewed & are unremarkable except as noted in Subjective Physical Exam Physical Exam: GENERAL APPEARANCE: A&O. Sitting comfortably on stretcher. NAD. SKIN: Normal color without rashes or lesions. Normal turgor. HEENT: Head AT/NC. Buccal mucosa is moist and pink. NECK: No jugular venous distention. No thyroid enlargement. There is no lymphadenopathy. HEART: RRR without m/g/r. LUNGS: Normal inspiratory effort. CTA without w/r/r. ABDOMEN: No guarding or rigidity. Normoactive BS in all four quadrants. Abdomen soft and NT. MSK: No bony gross/deformities throughout. ROM intact. EXTREMITIES: No edema, No peripheral cyanosis. Dressing present to right side of lateral hip-C/D/I. Neuro: CN 2-12 grossly intact. No focal neuro deficits PSYCHIATRIC: Normal affect. Eye contact is good. Speech is normal rate and content. Responses are appropriate. Results & Data Results & Data Vital Signs (Past 12 Hours) Vital Signs Temp Pulse Resp BP Pulse Ox Pulse Ox O2 Del Method 04/01/25 11:00 94 04/01/25 07:30 Room Air 04/01/25 06:17 91 H 18 94 Room Air 04/01/25 04:00 36.6 C 63 18 186/77 H 100 Nasal Cannula 04/01/25 03:00 100 O2 Del Method O2 Flow Rate O2 Flow Rate 04/01/25 11:00 Room Air 04/01/25 07:30 04/01/25 06:17 04/01/25 04:00 2 04/01/25 03:00 Nasal Cannula 2 Laboratory Results Labs reviewed: CBC, BMP PG Care Time/CCT Total # of Minutes Spent Total Time Spent with Patient: Total time spent is greater than 50% in coordination of care (as documented) at patient's floor/unit and/or counseling patient: Coding Level of Care Code 52920 SUB INP/OBS CARE 2/35MIN Diagnoses Closed hip fracture S72.001A Encounter type: initial encounter Laterality: right Ground-level fall W18.30XA Hypertension I10 Diabetes mellitus, type 2 E11.9 TIA (transient ischemic attack) G45.9 (1) Closed hip fracture Encounter type: initial encounter Laterality: right Qualified Code(s): S72.001A - Fracture of unspecified part of neck of right femur, initial encounter for closed fracture
[2025-04-01] MEDS: POLYETHYLENE (MIRALAX) 17 GM PACK PO SCH (15:25)
[2025-04-01] MEDS: ENOXAPARIN INJ 40 MG/0.4 ML SYR SQ SCH (21:52)
[2025-04-02 06:46] LABS: Hematocrit (blood only) 27.4 % (37.0-47.0); Hemoglobin 9.6 g/dL (12.0-16.0); Immature Granulocytes # (auto) 0.06 K/uL (0.01-0.20); Immature Granulocytes % (auto) 0.5 %; Mean Corpuscular Hemoglobin 32.1 pg (25.0-34.0); Mean Corpuscular Volume 91.6 fL (80.0-100.0); Platelet Count 135 K/uL (130-400); RDW Standard Deviation 44.2 fL (36.4-46.3); Red Blood Count 2.99 M/uL (4.20-5.40); White Blood Count 12.76 K/ul (4.8-10.8)
[2025-04-02 07:22] LABS: Anion Gap 8.0 (3-11); Blood Urea Nitrogen 10.0 mg/dl (6-23); Calcium 8.2 mg/dl (8.6-10.3); Carbon Dioxide 23.0 mmol/L (21-32); Chloride 99.0 mmol/L (98-107); Creatinine Clr Calc Pharmacy 65.8 ml/min; Glucose 198.0 mg/dl (70-99(Fasting)); Magnesium 2.1 mg/dl (1.7-2.4); Potassium 3.9 mmol/L (3.5-5.1); Sodium 130.0 mmol/L (136-145)
--- NOTE | 2025-04-02 08:43 | Hospitalist Progress Note ---
Date of Service April 02, 2025 Assessment & Plan (1) Closed hip fracture: (2) Ground-level fall: (3) Hypertension: (4) Diabetes mellitus, type 2: (5) TIA (transient ischemic attack): Plan Patient is an 79-year-old female with a past medical history of TIA, HLD, type II DM on insulin, HTN, bladder cancer s/p Tx 1998. Admitted with hip fracture #Right hip fx - S/p ground level fall, hemodynamically and neurovascularly intact at time of admission. s/p right bipolar cemented hip arthroplasty with Dr. Loza on 03/31 Hg adequate at 9.6 APAP, low dose oxycodone PRN Lidoderm patch Zofran as needed Incentive spirometry Remove fernandes tomorrow if not already dc'd PT/OT consults appreciated - referrals made to rehab, SNF #history of TIA restarted Plavix 04/01 this am Continue statin #HTN Hold verapamil and irbesartan - mildly hypotensive 90s/60s this am Hold chlorthalidone #Type II DM - most recent A1C 8.7%. Hold Prandin and metformin Above goal BG in 200s Cont glargine - increase by 2u and increase premeal aspart #Mental health Continue bupropion #acute blood loss anemia - from hip fracture Hg 9.6 adequate, stable -iron supplement VTE ppx: Lovenox SQ Admission and Anticipated Discharge Date Admission Date: March 30, 2025 Subjective Had BM, up in chair, fernandes still in, R hip painful with movement and weightbearing controlled on current meds Physical Exam Physical Exam: Last 24h vitals reviewed GEN: no acute distress, sitting in chair HEENT: pupils equal, sclerae anicteric, moist MM RESP: normal WOB, CTAB CV: reg no mrg ABD: soft/nt/nd +BT : fernandes SKIN: warm and dry, no generalized rashes EXT: LE wwp no significant edema. Hip incision dressed cdi NEURO: AOx person, place, and situation. Face symmetric, speech normal, moves 4 ext spontaneously and equally Results & Data Results & Data Vital Signs (Past 12 Hours) Vital Signs Temp Pulse Resp BP BP Pulse Ox O2 Del Method 04/02/25 07:21 37 C 96 H 18 104/64 96/60 L 95 Room Air 04/02/25 03:00 36.8 C 103 H 16 111/66 92 Room Air 04/01/25 23:27 37.1 C 98 H 18 97/59 L 93 Room Air Laboratory Results W12, Hg 9.6 Cr 0.6 Mag 2.1 K 3.9 Na 130 unchanged PG Care Time/CCT Total # of Minutes Spent Total Time Spent with Patient: Total time spent is greater than 50% in coordination of care (as documented) at patient's floor/unit and/or counseling patient: Coding Level of Care Code 82244 SUB INP/OBS CARE 235MIN Diagnoses Closed hip fracture S72.001A Encounter type: initial encounter Laterality: right Ground-level fall W18.30XA Hypertension I10 Diabetes mellitus, type 2 E11.9 TIA (transient ischemic attack) G45.9 (1) Closed hip fracture Encounter type: initial encounter Laterality: right Qualified Code(s): S72.001A - Fracture of unspecified part of neck of right femur, initial encounter for closed fracture
[2025-04-02] MEDS: LANTUS PER UNIT CHARGE SQ SCH (08:50)
--- NOTE | 2025-04-02 13:49 | Orthopedic Progress Note ---
Date of Service April 02, 2025 Assessment & Plan (1) Fracture of femoral neck, right: Plan: POD #1 s/p R hip hemiarthroplasty WBAT with walker. Continue pain control Continue DVT prophylaxis PT/OT D/c planning. Continue care per primary service. Dr. Pineda covering for Dr. Loza Present on Admission?: Yes Admission and Anticipated Discharge Date Admission Date: March 30, 2025 Subjective C/O Right hip and leg pain Physical Exam Physical Exam: Sitting comfortably in a chair. RLE: Sensation to light touch intact distally. BCR < 2 sec. Able to wiggle toes, ankle, and extend her knee. Dressing is clean, dry, intact. Results & Data Vital Signs (Past 12 Hours) Vital Signs Temp Pulse Resp BP BP Pulse Ox O2 Del Method 04/02/25 07:21 37 C 96 H 18 104/64 96/60 L 95 Room Air 04/02/25 03:00 36.8 C 103 H 16 111/66 92 Room Air Laboratory Results Laboratory Results WBC 12.76 K/ul (4.8-10.8) H 04/02/25 06:00 RBC 2.99 M/uL (4.20-5.40) L 04/02/25 06:00 Hgb 9.6 g/dL (12.0-16.0) L 04/02/25 06:00 Hct 27.4 % (37.0-47.0) L 04/02/25 06:00 MCV 91.6 fL (80.0-100.0) 04/02/25 06:00 MCH 32.1 pg (25.0-34.0) 04/02/25 06:00 MCHC 35.0 g/dL (32.0-36.0) 04/02/25 06:00 RDW Std Deviation 44.2 fL (36.4-46.3) 04/02/25 06:00 RDW Coeff of Mary 13.2 % (11.5-14.5) 04/02/25 06:00 Plt Count 135 K/uL (130-400) 04/02/25 06:00 MPV 10.5 fL (9.4-12.4) 04/02/25 06:00 Immature Gran % (Auto) 0.5 % 04/02/25 06:00 Neut % (Auto) 72.6 % 04/02/25 06:00 Lymph % (Auto) 7.1 % 04/02/25 06:00 [place] % (Auto) 19.0 % 04/02/25 06:00 Eos % (Auto) 0.6 % 04/02/25 06:00 Baso % (Auto) 0.2 % 04/02/25 06:00 Neut # (Auto) 9.27 K/uL (1.40-6.50) H 04/02/25 06:00 Lymph # (Auto) 0.91 K/uL (1.20-3.40) L 04/02/25 06:00 [place] # (Auto) 2.42 K/uL (0.11-0.59) H 04/02/25 06:00 Eos # (Auto) 0.08 K/uL (0.00-0.50) 04/02/25 06:00 Baso # (Auto) 0.02 K/uL (0.00-0.20) 04/02/25 06:00 Immature Gran # (Auto) 0.06 K/uL (0.01-0.20) 04/02/25 06:00 Polychromasia 1+ 04/01/25 06:16 PT 10.6 Seconds (9.0-12.0) 03/30/25 20:20 INR 1.0 (0.9-1.1) 03/30/25 20:20 APTT 25 Seconds (21-31) 03/30/25 20:20 PTT Ratio 0.9 03/30/25 20:20 Sodium 130 mmol/L (136-145) L 04/02/25 06:00 Potassium 3.9 mmol/L (3.5-5.1) 04/02/25 06:00 Chloride 99 mmol/L (98-107) 04/02/25 06:00 Carbon Dioxide 23 mmol/L (21-32) 04/02/25 06:00 Anion Gap 8 (3-11) 04/02/25 06:00 BUN 10 mg/dl (6-23) 04/02/25 06:00 Creatinine 0.61 mg/dl (0.6-1.2) 04/02/25 06:00 Est Cr Clr Drug Dosing 65.8 ml/min 04/02/25 06:00 eGFR 89.76 04/02/25 06:00 BUN/Creatinine Ratio 16.4 (10-20) 04/02/25 06:00 Glucose 198 mg/dl (70-99(Fasting)) H 04/02/25 06:00 POC Glucose 285 mg/dl (70-99) H 04/02/25 11:43 Calcium 8.2 mg/dl (8.6-10.3) L 04/02/25 06:00 Magnesium 2.1 mg/dl (1.7-2.4) 04/02/25 06:00 Total Bilirubin 0.4 mg/dl (0.2-1.0) 03/30/25 20:20 AST 18 U/L (13-39) 03/30/25 20:20 ALT 18 U/L (7-52) 03/30/25 20:20 Alkaline Phosphatase 65 U/L (34-104) 03/30/25 20:20 Total Protein 6.4 gm/dl (6.0-8.3) 03/30/25 20:20 Albumin 3.9 gm/dl (3.4-5.0) 03/30/25 20:20 Globulin 2.5 gm/dl (2.5-4.0) 03/30/25 20:20 Albumin/Globulin Ratio 1.6 (0.9-2) 03/30/25 20:20 Prealbumin 13.2 mg/dl (20-40) L 04/01/25 06:16 Lipase 39 U/L (11-82) 03/30/25 20:20 25-OH Vitamin D Total 42.1 ng/ml (30-100) 04/01/25 06:16 Blood Type A Positive 03/30/25 20:45 Antibody Screen NEGATIVE 03/30/25 20:45 Crossmatch See Detail 03/30/25 20:45 Impressions Pelvis X-Ray 03/30/25 20:10 Exam(s): XR PELVIS, 1-2 views EXAM: XR Pelvis, 1 or 2 Views CLINICAL HISTORY: Reason for exam: Fall, R hip pain. TECHNIQUE: Frontal view of the pelvis. COMPARISON: No relevant prior studies available. FINDINGS: Bones/joints: Displaced subcapital right femoral neck fracture. No dislocation. Lumbar spondylosis. Soft tissues: Unremarkable. IMPRESSION: Displaced subcapital right femoral neck fracture. Electronically signed by: Rhett Buchanan M.D. 03/30/25 22:[address] 03/30/25 20:11 Exam(s): CT HEAD Without Contrast EXAM: CT Head Without Intravenous Contrast CLINICAL HISTORY: Reason for exam: fall. TECHNIQUE: Axial computed tomography images of the head/brain without intravenous contrast. CTDI is 36 mGy and DLP is 624 mGy-cm. Automated exposure control was utilized for the study. A dose lowering technique was utilized adhering to the principles of ALARA. COMPARISON: 03/30/2024 FINDINGS: Brain: Age-related parenchymal volume loss. Regions of white matter hypoattenuation, most likely mild chronic small vessel ischemic change. Lim-white matter differentiation maintained. No parenchymal edema. No acute intracranial hemorrhage or abnormal extra-axial collection. No mass effect of midline shift. Ventricles: No hydrocephalus. Bones/joints: No acute fracture. Soft tissues: Unremarkable. Vasculature: Intracranial atherosclerosis. Sinuses: Unremarkable as visualized. Mastoid air cells: No significant mastoid effusion. Orbits: Lens replacements. IMPRESSION: No acute intracranial process. Electronically signed by: Rhett Buchanan M.D. 03/30/25 22:04 PM Chest X-Ray 03/30/25 21:38 Exam(s): XR CXR 1 VIEW EXAM: XR Chest, 1 View CLINICAL HISTORY: Reason for exam: fall, pre-op. TECHNIQUE: Frontal view of the chest. COMPARISON: 05/04/2024 FINDINGS: Lungs: No consolidation. Pleural space: No significant pleural effusion. No pneumothorax. Heart: No cardiomegaly or pulmonary vascular congestion. Bones/joints: No acute fracture. No dislocation. IMPRESSION: No evidence of acute cardiopulmonary disease. Electronically signed by: Rhett Buchanan M.D. 03/30/25 22:32 PM Hip X-Ray 03/31/25 10:24 EXAM: Radiographs of the Right Hip 3 Views INDICATION: Replacement. Postop check. TECHNIQUE: AP and crosstable lateral views obtained. COMPARISON: No relevant prior studies available. FINDINGS: Limitations: None. Bones/joints: Satisfactory appearance of cemented hip arthroplasty components. No fracture, loosening or dislocation. Soft tissues: Expected postoperative gas and swelling in the operative bed. IMPRESSION: Satisfactory appearance of right hip arthroplasty. ACT 112: N/A Electronically signed by Naida Valderrama 03-31-2025 11:41 AM
[2025-04-02 17:41] LABS: Appearance Urine Clear (Clear); Bacteria Urine Automated None Seen (None Seen); Epithelial Cell Urine Auto 0-2 /hpf (0-2); Glucose Urine UA 1+ (Negative); WBC Urine Automated 0-5 /hpf (0-5)
--- NOTE | 2025-04-03 08:25 | Hospitalist Progress Note ---
Date of Service April 03, 2025 Assessment & Plan (1) Closed hip fracture: (2) Ground-level fall: (3) Hypertension: (4) Diabetes mellitus, type 2: (5) TIA (transient ischemic attack): Plan Patient is an 79-year-old female with a past medical history of TIA, HLD, type II DM on insulin, HTN, bladder cancer s/p Tx 1998. Admitted with hip fracture #Right hip fx - ground level fall right bipolar cemented hip arthroplasty with Dr. Loza on 03/31 Hg adequate at 9.6 APAP, oxycodone 5 mg prn moderate pain and added 10 mg q6h prn severe pain Increased bowel regimen to 2 packets miralax bid for constipation DC fernandes bid ASA DVT ppx referrals made to rehab per PT/OT recs -hoping for bed at [facility]. Medically ready for dc to rehab or SNF #history of TIA restarted Plavix 04/01 Continue statin #HTN Hold verapamil and irbesartan - bp improved, normotensive today Hold chlorthalidone #Type II DM - most recent A1C 8.7%. Hold Prandin and metformin Above goal BG in 200s 04/02 and increased insulins #Mental health Continue bupropion #acute blood loss anemia - from hip fracture Hg 9.6 adequate, stable -iron supplement once moving bowels VTE ppx: Lovenox SQ updated her son in the room yesterday, today Admission and Anticipated Discharge Date Admission Date: March 30, 2025 Subjective episode of severe R hip pain after standing last noc relieved by extra dose oxycodone 5 mg no BM yet BP improved, now normal with antihypertensives held fernandes removed today progressing, still painful, walked few steps with PT and up in chair currently Physical Exam Physical Exam: Last 24h vitals reviewed No change in exam 04/03: GEN: no acute distress, sitting in chair HEENT: pupils equal, sclerae anicteric, moist MM RESP: normal WOB, CTAB CV: reg no mrg ABD: soft/nt/nd +BT : fernandes SKIN: warm and dry, no generalized rashes EXT: LE wwp no significant edema. Hip incision dressed cdi NEURO: AOx person, place, and situation. Face symmetric, speech normal, moves 4 ext spontaneously and equally Results & Data Results & Data Vital Signs (Past 12 Hours) Vital Signs Temp Pulse Resp BP BP Pulse Ox O2 Del Method 04/03/25 07:19 36.9 C 96 H 16 113/62 95 Room Air 04/02/25 21:46 37.0 C 101 H 16 124/70 93 Room Air PG Care Time/CCT Total # of Minutes Spent Total Time Spent with Patient: Total time spent is greater than 50% in coordination of care (as documented) at patient's floor/unit and/or counseling patient: Coding Level of Care Code 57259 SUB INP/OBS CARE 2/35MIN Diagnoses Closed hip fracture S72.001A Encounter type: initial encounter Laterality: right Ground-level fall W18.30XA Hypertension I10 Diabetes mellitus, type 2 E11.9 TIA (transient ischemic attack) G45.9 (1) Closed hip fracture Encounter type: initial encounter Laterality: right Qualified Code(s): S72.001A - Fracture of unspecified part of neck of right femur, initial encounter for closed fracture
[2025-04-03] MEDS: POLYETHYLENE (MIRALAX) 17 GM PACK PO SCH (08:30)
--- NOTE | 2025-04-03 09:10 | Orthopedic Progress Note ---
Date of Service April 03, 2025 Assessment & Plan (1) Status post hemiarthroplasty of right hip: Plan: Postop day 3. Continue PT/OT. Encouraged the patient to be out of bed and sitting in her chair. Ambulate using her walker Continue current pain management regimen Continue aspirin 81 mg for DVT prophylaxis Her dressings are dry and were left in place. Continue to change as needed for soiling. Continue using a gel pack on the right hip for pain/edema control Follow-up with Dr. Loza's office in 2-[address] Pineda covering for Dr. Loza over the weekend Admission and Anticipated Discharge Date Admission Date: March 30, 2025 Supervising Physician Co-Signing Physician Notes I, Dr. Pineda, saw and examined the patient with my PA. I agree with the above findings and plan of care. Subjective This 79-year-old female was seen today in her room. She is postop day 3 from right hip bipolar replacement. She states she is still having pain. She is currently eating her breakfast. She denies any fevers or chills, though she states she feels warm this morning. No chest pain or shortness of breath. She still gets significant leg pain with any motion. She was able to work with PT yesterday but was only able to do transfers. She was not able to walk in the hallway. She has not seen OT since postop day 1. No new complaints. Physical Exam Physical Exam: General: Well-developed, well-nourished, elderly female, in no acute distress. Laying in bed. Alert and oriented. Skin: Warm and dry with good turgor. Postsurgical dressing is in place on the right hip. It is dry. Bandage remains in place. Musculoskeletal: She has intact motor function to her ankle and toes. She is able to actively internally and externally rotate the hip with some pain. There is limited hip flexion/knee flexion secondary to right hip pain. Neurologic: Gross sensation is intact across the right leg by soft touch. Peripheral pulses are 2+. Results & Data Vital Signs (Past 12 Hours) Vital Signs Temp Pulse Resp BP BP Pulse Ox O2 Del Method 04/03/25 07:19 36.9 C 96 H 16 113/62 95 Room Air 04/02/25 21:46 37.0 C 101 H 16 124/70 93 Room Air Laboratory Results Glucose today was 191.
--- NOTE | 2025-04-03 20:37 | Electrocardiogram Report ---
Test Reason : Blood Pressure : */* mmHG Vent. Rate : 105 BPM Atrial Rate : 105 BPM P-R Int : 264 ms QRS Dur : 72 ms QT Int : 340 ms P-R-T Axes : * 18 19 degrees QTcB Int : 449 ms Sinus tachycardia with 1st degree A-V block with Premature atrial complexes with Aberrant conduction Abnormal ECG When compared with ECG of 31-Mar-2025 00:04, Aberrant conduction is now Present Criteria for Septal infarct are no longer Present Non-specific change in ST segment in Inferior leads ST now depressed in Lateral leads T wave inversion now evident in Lateral leads Confirmed by Liseth Nicole (Asim) on 04/03/2025 8:37:25 PM Referred By: REFERRED SELF Confirmed By: Liseth Nicole
[2025-04-03] MEDS: MELATONIN 3 MG TAB PO PRN (21:16)
[2025-04-03 22:48] VITALS: RESP 16
--- NOTE | 2025-04-04 07:31 | Orthopedic Progress Note ---
Date of Service April 04, 2025 Assessment & Plan (1) Fracture of femoral neck, right: * Continue Current Treatment * S/p right hip hemiarthroplasty * R knee pain, h/o TKA with Dr Blair, check XR * Weight bearing status: WBAT, hip precautions * Daily treatment: Physical Therapy/ Occupational Therapy per protocol * Pain control * Continue to monitor for ABLA * DVT prophylaxis, ok to resume from ortho standpoint * Disposition: TBD * Office/hospital f/u 2 weeks for progress check and staple/suture removal * Remainder care per primary team Update * XR knee reviewed, no acute fx or soft tissue change * Suspect pain secondary to her recent trauma/surgery Subjective . Active Problems: S/p right hip hemiarthroplasty POD 4 79 y/o female s/p right hip hemiarthroplasty. Doing well overall, pain managed and improved function. Denies fever/chills, chest pain/SOB, nausea/vomiting. Notes right knee pain today. Review of Systems All systems reviewed & are unremarkable except as noted in HPI & below. Physical Exam * Musculoskeletal: Right hip surgical dressing CDI, not removed for exam. Otherwise no obvious deformity or overlying skin changes. Diffuse TTP proximal thigh and hip region. Otherwise no specific tenderness of distal thigh, lower leg, foot/ankle. No appreciable swelling or effusion of right knee. AROM hip flexion intact. AROM foot/ankle intact. Sensation intact plantar/dorsal foot. Brisk capillary refill. Results & Data Results & Data Laboratory Results . Diagnostic Findings . PG Care Time/CCT Total # of Minutes Spent Total Time Spent with Patient: Total time spent is greater than 50% in coordination of care (as documented) at patient's floor/unit and/or counseling patient: Coding Level of Care Code 52664 Post Operative Follow-Up Diagnoses Fracture of femoral neck, right S72.001A
[2025-04-04 07:33] VITALS: BP 126/71; PULSE 93; TEMP 98.2; O2SAT 96
--- NOTE | 2025-04-04 10:00 | XRay Report ---
XR knee RT 3V CLINICAL HISTORY: pain, fall COMPARISON: 12/19/2023 FINDINGS: Right knee prosthesis shows no hardware complication. No fracture or dislocation seen. Sta ble calcifications at the anterior joint on the lateral view. IMPRESSION: No fracture seen. ACT 112: Negative or not required by law. Electronically signed by: Fer Salazar M.D. 04/04/2025 9:58 AM
--- NOTE | 2025-04-04 12:24 | Discharge Summary ---
Discharge Summary Date of Service April 04, 2025 Principal Dx & Hospital Course #1 = Principal Diagnosis (1) Closed hip fracture: (2) Ground-level fall: (3) Hypertension: (4) Diabetes mellitus, type 2: (5) TIA (transient ischemic attack): Plan 79-year-old female with a past medical history of TIA, HLD, type II DM on insulin, HTN, bladder cancer s/p Tx 1998. Patient presented via EMS after a ground-level mechanical fall in which she tripped walking in the doorway at [employer] onto her right side resulting in a right closed hip fracture. #Right hip fx - ground level fall right bipolar cemented hip arthroplasty with Dr. Loza on 03/31 Hg adequate at 9.6 APAP, oxycodone 5 mg prn moderate pain and 10 mg q6h prn severe pain Increased bowel regimen to 2 packets miralax bid for constipation DC'd fernandes 04/03, had straight cath 04/03 for retention in evening enoxaparin DVT ppx x 6 weeks - could change to ASA after rehab discharge [facility] for acute rehab Follow up with ortho in 2-3 weeks Had some increased R knee pain past 24h, hx R TKA. Xrays 04/04 negative for fracture/dislocation. Exam benign. Probably increased/different usage of knee because of hip fracture proximal to that #history of TIA restarted Plavix 04/01 Continue statin #HTN Early postop period mildly hypotensive, now normotensive Resumed irbesartan and chlorthalidone Verapamil still held - resume if BP warrants #Type II DM - most recent A1C 8.7%. Prandin and metformin, glargine #Mental health Continue bupropion #acute blood loss anemia - from hip fracture Hg 9.6 adequate, stable -iron supplement q48h once moving bowels and follow up in primary care Admission HPI Per Admitting Provider Patient is an 79-year-old female with a past medical history of TIA, HLD, type II DM on insulin, HTN, bladder cancer s/p Tx 1998. Patient presented via EMS after a ground-level mechanical fall in which she tripped walking in the doorway at [employer] onto her right side resulting in a right closed hip fracture. Patient is being admitted to undergo surgical management in the a.m. 03/31/2025, she is hemodynamically stable at time of admission. Patient seen at bedside with her 2 sons present. She stated she tripped on the doorway when walking into [employer] this evening. She fell onto her right side resulting in immediate right hip pain. She is unsure if she hit her head however feels as though her head hit against her purse/the purse often to her blow. She does have right ring finger bruising and swelling, denies any pain. She stated her pain is currently 7/10 at bedside and her hip, has only received 50 mcg of fentanyl and route via EMS. She denies any loss of consciousness. She ambulates without assistance at baseline, did use a cane after a knee replacement in September 2023. She stated her last meal was around 1730 which consisted of a sloppy Mike in a bun. She is due for her evening medications, ordered. Updated patient that she will likely undergo surgical management in the morning with orthopedic surgery, patient agreeable. She denies nicotine or alcohol use. She wishes to be full code. She denies any dizziness, lightheadedness, chest pain, shortness of breath, spinal pain, numbness, tingling. Note the patient is unsure if she is still on Plavix. Stated she did take all of her morning medications which would include Plavix on 03/30 if she is still on it. She is not on any anticoagulation. Confirmed through outside medical records that patient did last refilled plavix less than 1 month ago. Discharge Exam Last 24h vitals reviewed GEN: no acute distress, sitting in bed semi-reclined HEENT: pupils equal, sclerae anicteric, moist MM RESP: normal WOB, CTAB CV: reg no mrg ABD: soft/nt/nd +BT : no fernandes SKIN: warm and dry, no generalized rashes EXT: LE wwp no significant edema. Hip incision dressed cdi. R knee with old scar from TKA well healed, no erythema effusion or deformity NEURO: AOx person, place, and situation. Face symmetric, speech normal, moves 4 ext spontaneously and equally Discharge Plan Discharge Items Patient Disposition: Transfer Inpatient Rehab Fac Reason For Visit: FALL, RIGHT HIP FX Discharge Diagnosis: Right Hip Replacement for Fracture Condition on Discharge: Good Activity: Per Instructions section Activity Comment: Follow/Obey hip precautions at all times. Weightbearing: Full weightbearing Weightbearing Comment: Weightbear as tolerated obeying hip precautions at all times. Non-emergency contact: Surgeon Call non-emergency contact if: you have any medication questions Follow-up/Referrals: Pernell Loza MD [Physician] - Leelee Spencer PA-C [Primary Care Provider] - [facility] [Non-Staff] - Diet: Regular Addtl Attending Provider Instructions: PT and OT evaluate and treat Fernandes removed 04/03, had episode of urinary retention evening of 04/03 and required straight cath Monitor PVR/bladder scan Straight cath PRN PVR>350 or symptomatic retention Increased bowel regimen AM of 04/03 ASA 81 mg bid x 6 weeks dvt prophylaxis ACTIVITY RECOMMENDATIONS: Diet: * You may resume previous diet. Physical Therapy: * Aggressive physical therapy is not usually needed. You will learn to take care of yourself safely and walk. * Follow the "Hip Precautions Instructions." * In some cases, the social group worker at the hospital will arrange to have a therapist come to your house for the first couple of weeks to help you learn these skills. * You need to practice on your own or with the help of a family member as needed. * When you learn these skills, most of the therapy can be done on your own. Home Exercise: * You were shown a series of exercises in the hospital. Do these exercises three to four times each day including the exercises you were shown in physical therapy. Walking: * Get up and walk several times each day. For the first four weeks, try not to stand or walk for more than one hour at a time. If you do stand or walk for more turner n one hour, you will not hurt anything, but your leg will likely swell. * As you feel comfortable, you may change from the walker or crutches to a cane and then to independent walking. MEDICATIONS: New Medicine: * You will likely be taking one or more of these medicines: 1. Tramadol - Take, as directed, when you need it, every six hours to control your pain. 2. Plavix - Thins your blood to lessen the chance of forming a blood clot. * The most common side effects of pain medicine and iron are nausea and constipation. If nausea or constipation is too much of a problem or if you have any questions about your new medicines or doses, call [facility] at . We will try to help you manage these issues. "VERY IMPORTANT TO READ AND REVIEW" Pain: * The immediate post-operative period after hip replacement surgery is often quite painful. * You are given a prescription for pain medicine. You should take it, as directed, when you need it, especially before physical therapy and before going to bed. Pain that interferes with sleep is very common and can last several months. * You will likely need pain medicine for the first two to four weeks. It will not stop all of the pain. The pain will lessen and as you feel better, you may change to milder pain medicine such as Tylenol. * The most common side effects of pain medicine are nausea and constipation, so don't take more than you need. SPECIAL CARE INSTRUCTIONS: TEDs/Elastic Stockings: * The white elastic stockings help limit swelling and prevent blood clots from forming in your legs. The more you wear them, the more they work. * Wear them for six weeks. Incision Site Care: * Remove dressing postoperative day 2 and then shower. Keep direct shower pressure off the incision site. * After showering, cover hui with dry gauze and change daily or more frequently if the dressing is getting saturated with drainage. * May completely stop using bandage if wound is dry and no drainage * Hui are removed between 2 and 3 weeks post-op. If your follow-up appointment is made before 2 weeks, please have your appointment re- scheduled. It is too early to remove the hui. Prevention of Infection: * Take antibiotics one hour before any dental cleaning, dental work, urological procedure, gastrointestinal procedure or any invasive surgery in order to prevent your new joint from getting infected. * You may get the antibiotics from the doctor performing the procedure or you may call our office at before and we will call in a prescription to the pharmacy of your choice. Things to Watch For: * Drainage from the incision site that occurs more than one week after your surgery. * Severely increased leg pain or swelling. * Increased redness at the incision site. * Fever above 102 degrees Fahrenheit. * Unusual chest pain or shortness of breath. * Unusual pain or burning with urination. Call [facility] at with any of the above problems or if you have any questions about your medicines or recovery. FOLLOW UP VISIT: Make an appointment to see your doctor for approximately two weeks after surgery for a progress check and staple removal by calling the office at . Pending Studies at Discharge: No Stand-Alone Forms: My [facility] Skilled Items Patient informed of condition?: Yes DNR: No Discharge Level of Care: Acute rehab Communicable Disease: No Discharge Prognosis: Improving Lines: None Urinary Catheter: No Medications and DC Order Prescriptions: New magnesium hydroxide [Milk of Magnesia] 400 mg/5 mL Suspension 30 ml PO DAILY PRN (Reason: stomach upset) Qty: 355 0RF acetaminophen 325 mg Tablet 650 mg PO Q8H Qty: 0 0RF oxycodone 10 mg Tablet 10 mg PO Q6H PRNQty: 0 0RF polyethylene glycol 3350 [Miralax] 17 gram Powder In Packet 34 g PO BID Qty: 0 0RF melatonin 3 mg Tablet 3 mg PO HS PRNQty: 0 0RF oxycodone 5 mg Tablet 5 mg PO Q6H PRNQty: 0 0RF Continued Lantus Solostar U-100 Insulin 100 unit/mL (3 mL) insulin pen 16 unit subcut QAM Patient Comments: took 8units this am for bsg 157 albuterol sulfate 90 mcg/actuation HFA aerosol inhaler 2 puff inhalation Q6H PRN (Reason: shortness of breath or wheezing) Qty: 6.7 0RF atorvastatin [Lipitor] 40 mg Tablet 40 mg PO QAM metformin 500 mg Tablet 500 mg PO UD Rx Instructions: TAKES 500 MG QAM, THEN 1,000 MG QDD. clopidogrel 75 mg Tablet 75 mg PO QAM Rx Instructions: PT UNSURE IF STILL TAKING, UNABLE TO VERIFY. cholecalciferol (vitamin D3) 2,000 unit Tablet 2,000 unit PO QAM chlorthalidone 25 mg Tablet 25 mg PO Q OTHER DAY irbesartan 75 mg Tablet 75 mg PO HS bupropion HCl 200 mg Tablet Sustained-Release 12 Hr 200 mg PO QAM repaglinide [Prandin] 2 mg Tablet 4 mg PO QID Rx Instructions: administer within 30 minutes of a meal or snack vitamin B complex [B Complex-Vitamin B12] Tablet 1 tab PO DAILY Trulicity 1.5 mg/0.5 mL Pen Injector 1.5 mg SUBCUT WK Rx Instructions: WEDNESDAYS amoxicillin 500 mg tablet 2,000 mg PO DIRECTED PRN (Reason: 1 HR PRIOR TO DENTAL APPT.) Rx Instructions: 4 tabs 1 hour prior to procedure Held verapamil 120 mg Tablet 120 mg PO QAM Hold Instructions: held because mildly hypotensive to normotensive in hospital No Action (DME) walker Misc See Rx Instructions .MEDSUPPLY Qty: 1 0RF Rx Instructions: As directed (DME) Walking Cane Misc See Rx Instructions .MEDSUPPLY Qty: 1 0RF Rx Instructions: As directed Discharge Orders: Discharge Order (Routine); Ordered 04/04/25 Ordered By: Marce Redman Admission Data Admit Date/Time: 03/30/25 21:27 Attending Provider: Marce Redman Admit Provider: Chris Laura Primary Care Provider: Leelee Spencer Other Providers: Pernell Loza; Chris Laura; [facility]; Gurwinder Barr [facility] Stay Data Consultations 03/30/25 20:56 Consult Orthopedic Surgery Routine 03/30/25 21:00 ED Decision to Admit Stat Procedures Performed Operation Date: 03/31/25 08:00 Actual Procedures p Right Hip Replacement for Fracture(Right) - Pernell Loza MD Diagnostic Imagining Performed 03/30/25 20:11 CT head/brain wo con Stat Pending Results Patient Have Any Pending Studies at Discharge: No Discharge Instructions Given to Patient (Per Discharging Provider) PT and OT evaluate and treat Fernandes removed 04/03, had episode of urinary retention evening of 04/03 and required straight cath Monitor PVR/bladder scan Straight cath PRN PVR>350 or symptomatic retention Increased bowel regimen AM of 04/03 ASA 81 mg bid x 6 weeks dvt prophylaxis ACTIVITY RECOMMENDATIONS: Diet: * You may resume previous diet. Physical Therapy: * Aggressive physical therapy is not usually needed. You will learn to take care of yourself safely and walk. * Follow the "Hip Precautions Instructions." * In some cases, the social group worker at the hospital will arrange to have a therapist come to your house for the first couple of weeks to help you learn these skills. * You need to practice on your own or with the help of a family member as needed. * When you learn these skills, most of the therapy can be done on your own. Home Exercise: * You were shown a series of exercises in the hospital. Do these exercises three to four times each day including the exercises you were shown in physical therapy. Walking: * Get up and walk several times each day. For the first four weeks, try not to stand or walk for more than one hour at a time. If you do stand or walk for more than one hour, you will not hurt anything, but your leg will likely swell. * As you feel comfortable, you may change from the walker or crutches to a cane and then to independent walking. MEDICATIONS: New Medicine: * You will likely be taking one or more of these medicines: 1. Tramadol - Take, as directed, when you need it, every six hours to control your pain. 2. Plavix - Thins your blood to lessen the chance of forming a blood clot. * The most common side effects of pain medicine and iron are nausea and constipation. If nausea or constipation is too much of a problem or if you have any questions about your new medicines or doses, call [facility] at . We will try to help you manage these issues. "VERY IMPORTANT TO READ AND REVIEW" Pain: * The immediate post-operative period after hip replacement surgery is often quite painful. * You are given a prescription for pain medicine. You should take it, as directed, when you need it, especially before physical therapy and before going to bed. Pain that interferes with sleep is very common and can last several months. * You will likely need pain medicine for the first two to four weeks. It will not stop all of the pain. The pain will lessen and as you feel better, you may change to milder pain medicine such as Tylenol. * The most common side effects of pain medicine are nausea and constipation, so don't take more than you need. SPECIAL CARE INSTRUCTIONS: TEDs/Elastic Stockings: * The white elastic stockings help limit swelling and prevent blood clots from forming in your legs. The more you wear them, the more they work. * Wear them for six weeks. Incision Site Care: * Remove dressing postoperative day 2 and then shower. Keep direct shower pressure off the incision site. * After showering, cover hui with dry gauze and change daily or more frequently if the dressing is getting saturated with drainage. * May completely stop using bandage if wound is dry and no drainage * Percival are removed between 2 and 3 weeks post-op. If your follow-up appointment is made before 2 weeks, please have your appointment re- scheduled. It is too early to remove the hui. Prevention of Infection: * Take antibiotics one hour before any dental cleaning, dental work, urological procedure, gastrointestinal procedure or any invasive surgery in order to prevent your new joint from getting infected. * You may get the antibiotics from the doctor performing the procedure or you may call our office at before and we will call in a prescription to the pharmacy of your choice. Things to Watch For: * Drainage from the incision site that occurs more than one week after your surgery. * Severely increased leg pain or swelling. * Increased redness at the incision site. * Fever above 102 degrees Fahrenheit. * Unusual chest pain or shortness of breath. * Unusual pain or burning with urination. Call [facility] at with any of the above problems or if you have any questions about your medicines or recovery. FOLLOW UP VISIT: Make an appointment to see your doctor for approximately two weeks after surgery for a progress check and staple removal by calling the office at . Total Time Total Time Spent Total Time Spent (In Minutes): I personally spent: 40 minutes today on clinical care activities including: reviewing chart notes and vital signs reviewing studies discussion with care attendant examining and counseling the patient writing orders discharge instructions documentation Coding Level of Care Code 73853 INP/OBS DISCH >30 MIN Diagnoses Closed hip fracture S72.001A Encounter type: initial encounter Laterality: right Ground-level fall W18.30XA Hypertension I10 Diabetes mellitus, type 2 E11.9 TIA (transient ischemic attack) G45.9
== END 2025-04-04 17:01 | DRG 522 ==
LOC: ED 19:59 → SUATTDRO 21:27 → 3N 21:27